=== PATIENT | female | born 1945 | race Caucasian/White ===

== ENCOUNTER 2017-07-18 09:30 | Inpatient (IN) | payer MEDICARE, MEDICAID ==
[2017-07-18 09:55] LABS: #Lymphocytes 0.5 thou/uL (1.20-3.40); #Monocytes 0.5 thou/uL (0.11-0.59); #Neutrophils 9.9 thou/uL (1.40-6.50); %Eosinophils 0.1 % (0.0-10.0); %Lymphocytes 4.5 % (21.0-51.0); %Monocytes 4.9 % (0.0-10.0); Hematocrit 33.7 % (36.0-47.0); Mean Platelet Volume 9.8 fL (7.4-10.4); Red Blood Cell (RBC) Count 3.49 mill/uL (4.20-5.40); White Blood Cell (WBC) Count 10.9 thou/uL (4.8-10.8)
--- NOTE | 2017-07-18 10:10 | RAD ---
AP VIEW OF CHEST: Date: 07/18/17 INDICATION: Shortness of breath and vomiting. FINDINGS: There are patchy air space opacities within the right mid lung and right lower lobe which can be seen with pneumonia or aspiration. There are small bilateral pleural effusions. There is cardiomegaly and mild pulmonary vascular congestion. No pneumothorax is evident. Post CABG changes are similar. IMPRESSION: 1. Patchy opacities within the lung bases may reflect pneumonia or aspiration. Recommend correlation and follow-up. 2. Cardiomegaly, pulmonary vascular congestion, and small bilateral pleural effusions likely reflect component of CHF. POS: DELIA
[2017-07-18 10:15] LABS: ALT (SGPT) 13 U/L (8-55); AST (SGOT) 46 U/L (5-34); Alkaline Phosphatase 56 U/L (40-150); Anion Gap 13 mmol/L (10-20); BUN (Urea Nitrogen) 24 mg/dL (9.8-20.1); CK (CPK) 260 U/L (29-168); Calc. Creatinine Clearance 0 mL/min (70-130); Calcium 9.6 mg/dL (7.8-10.44); Carbon Dioxide 23 mmol/L (23-31); Chloride 100 mmol/L (98-107); Estimated GFR-MDRD 42; Globulin 3.4 g/dL (2.4-3.5); Protein, Total 7.7 g/dL (6.0-8.3)
[2017-07-18 10:22] LABS: Critical Call Chem Troponin I 0; Troponin I 4.877 ng/mL (< 0.028)
[2017-07-18] MEDS ORDERED: Heparin 5,000 UNITS/ML VIAL ONE (11:01)
[2017-07-18 11:22] LABS: PTT 29.9 SEC (22.9-36.1); Prothrombin Time 14.6 SEC (12.0-14.7)
[2017-07-18] MEDS ORDERED: Enoxaparin Sodium 80 MG/0.8 ML SYRINGE ONE (12:24)
[2017-07-18 12:56] LABS: Troponin I 5.877 ng/mL (< 0.028)
--- NOTE | 2017-07-18 13:27 | HP ---
PRIMARY CARE PHYSICIAN: Jacki Moreno, Family Nurse Practitioner. REASON FOR ADMISSION: New onset congestive heart failure, non-ST elevation myocardial infarction, right lower lobe community-acquired pneumonia, hypoxic respiratory failure. HISTORY OF PRESENT ILLNESS: A 72-year-old female who has a history of coronary artery disease, 3-vessel, required CABG in the past as well as history of hypertension, diabetes type 2, dyslipidemia, who was brought to the emergency room because this morning, she was having increasing shortness of breath. Patient also had one episode of vomiting and patient was having cough productive of yellowish white sputum. She was having chills and fever at home. She denies any flu vaccination or pneumonia vaccination. These symptoms started early this morning, but she is having cough and shortness of breath for almost a week which is gradually getting worse. She is also reporting orthopnea. She does report lower extremity edema. She denies any hemoptysis. She denies any dizziness, palpitation or syncope. She denies any recent travel or sick exposure. Patient was feeling chest tightness, which she describes about 2/10 in intensity. She attributes to that, because she is feeling congestion in her chest. This patient is very hard of hearing and so the history is very difficult to obtain from her, but patient has bedside her granddaughter who provided most of the history. In the emergency room when she presented, at that time she was saturating 83% on room air. She was relatively having low blood pressure. Patient was evaluated by Cardiology and they recommended admission to seek IMCU. Her chest x-ray showed right lower lobe infiltration and pulmonary vascular congestion. Her EKG when we compared from old another hospital, there was no significant change. She does have LVH with repolarization changes. Looking at her old records, patient has cardiac catheterization history in 2002. At that time, patient had small vessels and small target and subsequently patient had a CABG done. The patient is followed by Dr. Oliva. PAST MEDICAL HISTORY: Coronary artery disease, 3-vessel, required CABG; hypertension; diabetes type 2; sensorineural deafness; dyslipidemia; degenerative joint disease; bilateral carotid artery stenosis; COPD; history of left ovarian cyst. PAST SURGICAL HISTORY: CABG x3, cardiac catheterization with stent, tubal ligation, carotid endarterectomy. PAST PSYCHIATRIC HISTORY: Reviewed and negative. ALLERGIES: NKDA. SOCIAL HISTORY: Patient is and lives at home with her . No history of tobacco, alcohol or illicit drug abuse. FAMILY HISTORY: No strong family history of premature coronary artery disease, stroke or cancer. REVIEW OF SYSTEMS: The following complete review of systems was negative, unless otherwise mentioned in the HPI or below: Constitutional: Weight loss or gain, ability to conduct usual activities. Skin: Rash, itching. Eyes: Double vision, pain. ENT/Mouth: Nose bleeding, neck stiffness, pain, tenderness. Cardiovascular: Palpitations, dyspnea on exertion, orthopnea. Respiratory: Shortness of breath, wheezing, cough, hemoptysis, fever or night sweats. Gastrointestinal: Poor appetite, abdominal pain, heartburn, nausea, vomiting, constipation, or diarrhea. Genitourinary: Urgency, frequency, dysuria, nocturia. Musculoskeletal: Pain, swelling. Neurologic/Psychiatric: Anxiety, depression. Allergy/Immunologic: Skin rash, bleeding tendency. Please see my HPI for pertinent positives and negatives. All other review of systems reviewed and negative except as mentioned in the HPI. EMERGENCY ROOM COURSE: Patient is given Lovenox 1 mg per kg, heparin 5000 units , aspirin 324 mg. CURRENT HOME MEDICATION: Metformin ER 500 mg po daily, lisinopril 40 mg po bid, atenolol 25 mg po daily, aspirin 81 mg po daily, plavix 75 mg po daily, protonix 40 mg po daily. Amlodipine 5 mg po bid, crestor 10 mg po daily PHYSICAL EXAMINATION: VITAL SIGNS: On arrival, blood pressure 114/39, pulse 67, respiratory rate 20, temperature 97.4, saturation 83% on room air, weight 68 kilograms. GENERAL: Patient is currently alert, awake, arousable, hard of hearing, no obvious acute distress. HEAD: Normocephalic, atraumatic. EYES: Pupils round, reactive to light. Extraocular muscles intact. ENT: Oropharynx within normal limits. Moist mucous membranes. No oral lesions. No pharyngeal erythema, no exudates. NECK: Supple, no JVD, no thyromegaly, no carotid bruit, no meningeal signs of irritation. LUNGS: Bibasilar rales noted. No wheezing, no rhonchi. No accessory muscles of respiration in use. CARDIAC: S1, S2 regular. No murmur, no gallop, no rub. ABDOMEN: Soft, bowel sounds present, nontender, nondistended. No organomegaly , no mass, no suprapubic tenderness. BACK: Unremarkable, no CVA tenderness. EXTREMITIES: Upper extremity: Passive movement of all joints are normal. Lower extremity: Trace bilateral lower extremity edema noted. Good peripheral pulsation. SKIN: No skin rash. HEMATOLOGIC: No lymphadenopathy. PSYCHIATRIC: Normal affect. SIGNIFICANT LABORATORY DATA AND IMAGIN. EKG based on my review, LVH with repolarization changes, left atrial enlargement. When compared to old EKG, there was no significant change in EKG. Chest x-ray showing patchy opacity at the right lung base consistent with pneumonia, cardiomegaly and pulmonary vascular congestion. 2. CBC: WBC 10.9, hemoglobin 11.6, platelets 172. INR 1.1. BMP: Sodium 132 , potassium 4.3, chloride 100, carbon dioxide 23, anion gap 13, BUN 24, creatinine 1.24, glucose 147, calcium 9.6. 3. LFT: AST 46, ALT 13, alkaline phosphatase 56, albumin 4.3. CK 260, CK-MB 14.1, troponin 4.87. BNP 3049. ASSESSMENT AND PLAN: 1. Acute non-ST elevation myocardial infarction. Patient has significantly abnormal troponin and patient also has LVH with low polarization changes. At this point, patient already has underlying history of coronary artery disease required coronary artery bypass graft in the past. Cardiology already consulted. This patient has significant peripheral vascular problem and at this point, we will obtain echocardiography. We will treat medically with aspirin 81 mg p.o. daily, Plavix 75 mg p.o. daily, Lovenox 1 mg per kg subcutaneous twice daily and nitropatch q.8 hourly. We will obtain echocardiography and we will also continue with Coreg 3.125 mg twice daily and statin therapy with Zocor 40 mg p.o. at bedtime. 2. New onset congestive heart failure, suspecting systolic heart failure. At this point, we are changing her atenolol to Coreg 3.125 mg p.o. twice daily. We will start Lasix 20 mg IV b.i.d. We will also consider adding lisinopril 2.5 mg p.o. b.i.d. The patient is taking high dose of lisinopril at home, but because of relatively low blood pressure, we will reduce to lisinopril 2.5 mg p.o. b.i.d. and we will titrate medication while in hospital. 3. Acute hypoxic respiratory failure due to combined etiology from pneumonia as well as congestive heart failure. We will continue with oxygen to keep saturation above 92%. We will continue with the diuretic therapy and we will treat underlying pneumonia as well and we will monitor her oxygen saturation on daily basis to assess need for home oxygen therapy. 4. Community-acquired pneumonia. Patient does have a right lower lobe infiltration. The patient will be given Rocephin 1 gram q.24 hours, Levaquin 500 mg IV daily, DuoNeb therapy q.6 hourly and p.r.n. basis, Mucinex 600 mg twice daily. 5. Hypertension with hypertensive heart disease. Patient has LVH. Patient's blood pressure is currently on lower side, but we will continue the Coreg, lisinopril, and we will titrate blood pressure medication as needed. The patient is taking amlodipine at home, but we will hold on at this point given her low blood pressure. 6. Coronary artery disease, as mentioned in problem #1. We will treat medically for [id number] myocardial infarction. 7. Chronic kidney disease stage 3. We will monitor renal function and avoid nephrotoxic agents. 8. Diabetes type 2. We will continue with insulin as per sliding scale per protocol. Diabetic diet will be given and we will continue metformin ER 500 mg p.o. daily. 9. Sensorineural deafness, only supportive treatment. 10. History of chronic obstructive pulmonary disease. We will continue DuoNeb therapy. 11. Normocytic anemia. We will continue with ferrous sulfate 325 mg p.o. daily. 12. Gastroesophageal reflux disease. We will continue Protonix 40 mg p.o. daily and Pepcid 20 mg p.o. b.i.d. 13. Deep venous thrombosis prophylaxis. Patient is already on full dose of Lovenox therapy. 14. Gastrointestinal prophylaxis, Protonix and Pepcid. CODE STATUS: The patient is full code. Patient's is surrogate decision maker. Disposition and plan based on clinical course. We are expecting patient's stay in hospital more than 2 midnights. Plan of care discussed with the patient and family member at bedside in the emergency room. [facility]
[2017-07-18] MEDS ORDERED: Furosemide 20 MG/2 ML VIAL ONE (13:34)
[2017-07-18] MEDS ORDERED: Sodium Chloride 0.65% Nasal 44 ML BOT EA NARE PRN (14:29)
[2017-07-18] MEDS ORDERED: Ondansetron ODT 4 MG TAB PO PRN (14:29)
[2017-07-18] MEDS ORDERED: Artificial Tears 18 DROP/0.9 ML EA EYE PRN (14:29)
[2017-07-18] MEDS ORDERED: Dextrose 5% in Water 1,000 ML IV PRN (14:29)
[2017-07-18] MEDS ORDERED: Dextrose 50% Abboject 50 ML SYRINGE SLOW IVP PRN (14:29)
[2017-07-18] MEDS ORDERED: Milk Of Magnesia 30 ML UDCUP PO PRN (14:29)
[2017-07-18] MEDS ORDERED: Senokot 8.6 MG TAB PO PRN (14:29)
[2017-07-18] MEDS ORDERED: Loperamide HCl 2 MG CAP PO PRN (14:29)
[2017-07-18] MEDS ORDERED: hydrALAZINE 20 MG/ML VIAL SLOW IVP PRN (14:29)
[2017-07-18] MEDS ORDERED: Chloraseptic Spray 180 ml Bottle PO PRN (14:29)
[2017-07-18] MEDS ORDERED: Loratadine 10 MG TAB PO PRN (14:29)
[2017-07-18] MEDS ORDERED: HumaLOG 300 UNITS/3 ML VIAL SC PRN ×2 (14:29)
[2017-07-18] MEDS ORDERED: Ondansetron HCl/PF 4 MG/2 ML Vial IVP PRN (14:29)
[2017-07-18] MEDS ORDERED: Eucerin (Mineral Oil/Petrolatum,White) 30 gm Jar TOP PRN (14:29)
[2017-07-18] MEDS ORDERED: Nitroglycerin 0.4 MG TAB (25 Tab Bottle) SL PRN (14:29)
[2017-07-18] MEDS ORDERED: cefTRIAXone\\ROCEPHIN 1 GM in Sodium Chloride 0.9% 100 ML IVPB SCH (14:29)
[2017-07-18] MEDS ORDERED: HYDROcodone/Acetaminophen 5/325 mg Tablet PO PRN (14:29)
[2017-07-18] MEDS ORDERED: Mag-Al 1200 mg/1200 mg/30 ML UDCUP PO PRN (14:29)
[2017-07-18 14:31] VITALS: BMI 24.0
[2017-07-18] MEDS ORDERED: Furosemide 20 MG/2 ML VIAL SLOW IVP SCH (14:45)
[2017-07-18] MEDS: Nitroglycerin 2% Ointment 1 INCH/1 GM Packet TOP SCH ×2 (16:17→22:17)
[2017-07-18] MEDS: cefTRIAXone\\ROCEPHIN 1 GM, Syringe 0.4 ML in Sterile Water 9.6 ML SLOW IVP SCH (16:18)
[2017-07-18 17:09] LABS: Bilirubin Negative (Negative); Blood, Urine Small (Negative); Glucose, Urine (Dipstick) Negative (Negative); Ketone, Urine Negative (Negative); Nitrite Negative (Negative); Protein, Urine (Dipstick) Negative (Neg-Trace); Urobilinogen 0.2 mg/dL (0.2-1.0)
[2017-07-18 17:15] LABS: Troponin I 6.109 ng/mL (< 0.028)
[2017-07-18 17:16] LABS: Bacteria/HPF None Seen HPF (None Seen); Hyaline Casts/LPF 0-3 HYALINE CAST LPF (0-3 Hyaline); Squamous Epithelial 0-3 HPF (0-3); WBC/HPF 0-3 HPF (0-3)
[2017-07-18] MEDS ORDERED: FLU VACC TS2017-18 (>65YR) 0.5 ML SYRINGE IM ONE (17:45)
[2017-07-18 20:01] LABS: Troponin I 6.532 ng/mL (< 0.028)
[2017-07-18] MEDS: Carvedilol 3.125 MG TAB PO SCH (22:16)
[2017-07-18] MEDS: Lisinopril 5 MG TAB PO SCH (22:16)
[2017-07-18] MEDS: guaiFENesin ER 600 MG TAB PO SCH (22:16)
[2017-07-18] MEDS: Atorvastatin Calcium 20 MG TAB PO SCH (22:16)
[2017-07-18] MEDS: Enoxaparin Sodium 60 MG/0.6 ML SYRINGE SC SCH (22:17)
--- NOTE | 2017-07-18 22:26 | CON ---
REASON FOR CONSULTATION: 07/18/2017 REASON FOR CONSULTATION: Congestive heart failure, shortness of breath, non-ST elevation myocardial infarction. HISTORY OF PRESENT ILLNESS: Ms. Jackson is a very pleasant 72-year-old woman, patient of Dr. Petey Burdick. She was brought to the hospital complaining of shortness of breath. The patient is unable to give much history, but apparently, early this morning, she became short of b reath. This is according to mostly the patient's granddaughter, but the patient agrees with this tobi cription. She also said she had a hard shaking chill. She worsened, came here to the emergency room for evaluation, continuing to be short of breath and srinivasan ving some chest pain with the breath, but otherwise no chest pain, no angina. The patient has abnormal chest x-ray as well, as will be outlined. The patient is not having chest pain now, but she is short of breath. She is also unable to urinate. She is trying to urinate, but cannot. PAST MEDICAL HISTORY: She is a very imprecise historian, but fortunately, there are some records glenys ilable. She initially thought her bypass was in 1998, but we found some old records in the chart ind icating she actually underwent cardiac catheterization by Dr. Oliva in 2002, and subsequently und erwent bypass surgery. Dr. Oliva's note indicates she had 3-vessel disease. Dr. Toussaint's not e indicates these vessels were small targets, and the surgery was done after myocardial infarction. She was also noted to have a left subclavian stenosis. She underwent surgery with free internal mammary arteries to LAD, saphenous vein graft to diagonal, s aphenous vein graft to obtuse marginal, saphenous vein graft to right coronary artery. The mammary w as placed on the obtuse marginal as a piggyback. I think in reading the note, that really what Dr. Estee rodriguez meant was that the internal mammary artery graft is on the piggyback down to the vein graft of the LAD. It was noted at the time of surgery that this patient should not be re-operated on due to plaque with diffuse disease with distal anastomotic lesions. Patient has been followed by Dr. Oliva since. She has been told she has severe peripheral vascul ar disease. MEDICATIONS: 1. Simvastatin 40 mg a day. 2. Aspirin 81 mg a day. 3. Isosorbide. 4. Metformin. 5. Lisinopril 40 mg twice a day. 6. Atenolol 25 mg a day. 7. Amlodipine 5 mg twice a day. 8. Pantoprazole 40 mg a day. 9. Plavix. REVIEW OF SYSTEMS: Not very reliable. She is really unable to give much history. It is positive fo r the followin. Weakness and fatigue. 2. Positive for hard shaking chills. 3. Positive for shortness of breath. Otherwise negative or unreliable as the patient cannot give much history. PHYSICAL EXAMINATION: GENERAL: This is a frail-appearing elderly woman who looks much older than her chronologic age of 72 . She is trying to urinate, but unable to do so. VITAL SIGNS: Blood pressure 120 systolic. Pulse is in the 70s. EYES: Sclerae nonicteric. MOUTH: Mucous membranes moist. NECK: Supple, no lymphadenopathy. LUNGS: There are bibasilar rales, more on the right than the left. CARDIAC: Normal S1, normal S2. There is no murmur, rub, or gallop. ABDOMEN: Soft, nontender, no hepatosplenomegaly. EXTREMITIES: Warm, dry, no clubbing, cyanosis, or edema. HEMATOLOGIC: No unusual bruising. GENITOURINARY: Not examined. SKIN: Warm and dry. PULSES: I do not feel pedal pulses on either side. No popliteal pulses. The femoral pulses are not definitely palpable; it is possibly trace on the left. I cannot definitely feel any pulses in the f emoral area. The patient has severe peripheral vascular disease. X-RAY FINDINGS: EKG, normal sinus rhythm. There is some ST elevation in V1 and V2 and V3 with diffu se T-wave inversion in the anterior leads. I did receive a copy of the EKG from Dr. Oliva's offi ce. She did have some ST elevation in the same leads with the same T-wave inversions on the previous leads. The quality of the EKG is suboptimal , but there does not appear to be any definite dillard ge in the EKG. PERTINENT LABORATORY DATA: BNP is 3049 indicating she has chronic congestive heart failure. Her hem oglobin is 11.6. Her potassium is 4.3 and sodium 132, which is a little low. Bilirubin is 2. Tropo rikki 4.877. Chest x-ray shows cardiomegaly, pulmonary vascular congestion, patchy infiltrates, probably compatibl e with pneumonia and also pleural effusions. ASSESSMENT: 1. Congestive heart failure. 2. What appears to be non-ST elevation myocardial infarction. 3. Diffuse atherosclerotic disease. 4. Severe peripheral vascular disease with no femoral pulses or pedal pulses on either side. 5. Unable to give a very clear history, history of hypercholesterolemia. 6. History of hypertension. 7. Hyponatremia. PLAN: 1. We will give Lovenox. 2. Treat heart failure with diuretics as well as BENJI inhibitors and also change to Coreg. 3. Echocardiogram. 4. Antibiotics to be given. Further care dictated in hospital course. Prognosis guarded to poor.
[2017-07-18] MEDS: Famotidine 20 MG TAB PO SCH (22:37)
--- NOTE | 2017-07-19 01:24 | CON ---
DATE OF SERVICE: 07/18/2017 SERVICE: Pulmonary Medicine. REASON FOR CONSULTATION: [facility] [place] HISTORY OF PRESENT ILLNESS: The patient is a 72-year-old white female with past medical history significant for heart failure and heart disease. She had a 1-week history of increasing shortness of breath and a little bit of cough. Originally, this was nonproductive but started bringing up some yellow sputum. One day ago, this accelerated and she started bringing up heavier sputum. She had some low-grade fevers and came into the emergency department. Chest x-ray demonstrated a right lower lobe infiltrate. She also had findings consistent with volume overload. She was given some Lasix and initiated on some antibiotics. The sputum production is actually starting to slow down a little bit and her breathing is much improved. On presentation, she was hypoxemic. She does not use any home oxygen. PAST MEDICAL HISTORY: 1. Coronary artery disease. 2. Chronic systolic and diastolic heart failure. 3. Type 2 diabetes mellitus. 4. Dyslipidemia. 5. Hypertension. 6. Osteoarthritis. 7. Chronic obstructive pulmonary disease. 8. History of left ovarian cyst. 9. Sensorineural deafness. PAST SURGICAL HISTORY: 1. Coronary artery bypass graft x3 vessels. 2. History of percutaneous coronary intervention. 3. Tubal ligation. 4. Carotid endarterectomy. ALLERGIES: PENICILLIN. MEDICATIONS: List of inpatient medications was reviewed. Multiple updates were made. SOCIAL HISTORY: She has no history of alcohol, tobacco, or illicit drug use. She denies any exposure to chemicals, dust, asbestos, or tuberculosis. FAMILY HISTORY: Noncontributory. REVIEW OF SYSTEMS: General, head, ears, eyes, nose, throat, cardiovascular, respiratory, GI, , musculoskeletal, neurologic, and skin is negative except as mentioned in the HPI. PHYSICAL EXAMINATION: VITAL SIGNS: Afebrile, pulse 74, blood pressure 119/40, respirations 18, saturation 95% on 2 liters nasal cannula. HEENT: Normocephalic, atraumatic. Sclerae are white, conjunctivae pink. Oral and nasal mucosa is moist without lesions. LUNGS: There is decent air entry with a prolonged expiratory phase. I hear both crackles and rhonchi. The rhonchi are more predominant on the right. The crackles are bibasilar. HEART: Normal rate, regular. ABDOMEN: Soft, nontender, nondistended, bowel sounds positive. MUSCULOSKELETAL: No cyanosis or clubbing. There is trace to 1+ pitting in the bilateral lower extremities. GENITOURINARY: No Cyr. NEUROLOGIC: Grossly nonfocal. LABORATORY DATA: WBC 10.9, hemoglobin 11.6, platelets 172,000. INR 1.1. Creatinine 1.24. Basic metabolic profile is otherwise unremarkable. Glucose 147, total bilirubin 2.0. Troponin is uptrending to 6.109. BNP 3000, but liver function studies are otherwise unremarkable. Urinalysis is unremarkable. IMAGING: Chest x-ray demonstrates findings consistent with volume overload with cephalization and pulmonary vascular engorgement, but there is also a very dense right lower lobe infiltrate. There may be some atelectasis or scattered infiltrate in the left base as well. ASSESSMENT: 1. Acute hypoxic respiratory failure. 2. Community-acquired pneumonia. 3. Severe sepsis. 4. Non-ST elevation myocardial infarction. 5. Acute on chronic systolic heart failure. 6. Coronary artery disease. 7. Type 2 diabetes mellitus. 8. Deafness. PLAN: We will continue our antibiotics directed at community-acquired coverage. She will be diuresed to euvolemia. I will add some Mucinex to see if we can help with some of the expectoration of her sputum. She is currently on full-dose anticoagulation. Other supportive care will be continued. She will remain in the IMCU until at least tomorrow morning. Pulmonary will continue to follow. She will need a full 7-day course of antibiotics. Following dismissal from the hospital, she will require a repeat chest x-ray in roughly 4-6 weeks to verify if the infiltrate resolves. NINA
[2017-07-19] MEDS: Furosemide 20 MG/2 ML VIAL SLOW IVP SCH ×2 (05:39→15:03)
[2017-07-19 05:59] LABS: #Lymphocytes 0.5 thou/uL (1.20-3.40); #Monocytes 0.3 thou/uL (0.11-0.59); #Neutrophils 2.9 thou/uL (1.40-6.50); %Basophils 0.5 % (0.0-1.0); %Eosinophils 0.5 % (0.0-10.0); %Lymphocytes 12.8 % (21.0-51.0); %Monocytes 7.7 % (0.0-10.0); Hematocrit 28.3 % (36.0-47.0); Red Blood Cell (RBC) Count 2.95 mill/uL (4.20-5.40); White Blood Cell (WBC) Count 3.7 thou/uL (4.8-10.8)
[2017-07-19 06:03] LABS: ALT (SGPT) 10 U/L (8-55); AST (SGOT) 33 U/L (5-34); Alkaline Phosphatase 42 U/L (40-150); Anion Gap 11 mmol/L (10-20); BUN (Urea Nitrogen) 21 mg/dL (9.8-20.1); Bilirubin, Total 1.5 mg/dL (0.2-1.2); Calc. Creatinine Clearance 45 mL/min (70-130); Calcium 8.9 mg/dL (7.8-10.44); Carbon Dioxide 28 mmol/L (23-31); Chloride 95 mmol/L (98-107); Cholesterol 101 mg/dl (< 200 Desired); Estimated GFR-MDRD 53; Globulin 2.7 g/dL (2.4-3.5); LDL Cholesterol, Calculated 47 mg/dL; Protein, Total 6.1 g/dL (6.0-8.3)
[2017-07-19] MEDS: Acetaminophen 325 MG TAB PO PRN (07:24)
[2017-07-19] MEDS: Ferrous Sulfate 325 MG TAB PO SCH (07:24)
[2017-07-19] MEDS: Saccharomyces boulardii 250 MG CAP PO SCH (07:24)
[2017-07-19] MEDS: guaiFENesin ER 600 MG TAB PO SCH ×2 (07:25→20:22)
[2017-07-19] MEDS: Carvedilol 3.125 MG TAB PO SCH ×2 (07:25→20:22)
[2017-07-19] MEDS: Lisinopril 5 MG TAB PO SCH ×2 (07:25→20:22)
[2017-07-19] MEDS: Clopidogrel Bisulfate 75 MG TAB PO SCH (07:25)
[2017-07-19] MEDS: Enoxaparin Sodium 60 MG/0.6 ML SYRINGE SC SCH (07:26)
[2017-07-19] MEDS: Nitroglycerin 2% Ointment 1 INCH/1 GM Packet TOP SCH (07:34)
[2017-07-19] MEDS ORDERED: metFORMIN XR 500 MG TAB PO SCH (08:00)
--- NOTE | 2017-07-19 09:34 | PDOC.PN ---
- Subjective Encounter Start Date: 07/19/17 Encounter Start Time: 08:40 -: old records requested/rev Patient seen and examined. No new complaints. No overnight events - Objective Resuscitation Status: Resuscitation Status FULL:Full Resuscitation MAR Reviewed: Yes Vital Signs & Weight: Vital Signs (12 hours) Temp Pulse Resp BP BP Pulse Ox 07/19/17 07:25 64 143/80 H 07/19/17 07:10 99.0 F 73 24 H 143/80 H 99 07/19/17 06:42 70 14 07/19/17 04:00 98.3 F 63 20 112/43 L 99 07/19/17 00:19 68 14 99 07/19/17 00:00 98.9 F 68 20 123/44 L 99 07/18/17 22:16 73 137/56 L Weight Weight 128 lb 12.8 oz I&O: 07/18/17 07/19/17 07/20/17 06:59 06:59 06:59 Intake Total 750 Output Total 1025 Balance -275 Result Diagrams: 07/19/17 04:57 07/19/17 04:57 Additional Labs: Accuchecks 07/19/17 07/18/17 07/18/17 05:47 20:47 16:54 POC Glucose 124 H 188 H 132 H EKG Reviewed by me: Yes (nsr) Phys Exam - Physical Examination Constitutional: NAD HEENT: PERRLA, moist MMs, sclera anicteric Neck: no JVD, supple Respiratory: no wheezing, no rales, no rhonchi Cardiovascular: RRR, no significant murmur, no rub Gastrointestinal: soft, non-tender, no distention, positive bowel sounds Musculoskeletal: no edema, pulses present Neurological: non-focal, normal sensation Psychiatric: normal affect, A&O x 3 Skin: no rash, normal turgor Dx/Plan (1) Acute on chronic combined systolic and diastolic congestive heart failure Code(s): I50.43 - ACUTE ON CHRONIC COMBINED SYSTOLIC AND DIASTOLIC HRT FAIL Status: Acute (2) Acute respiratory failure with hypoxia Code(s): J96.01 - ACUTE RESPIRATORY FAILURE WITH HYPOXIA Status: Acute (3) Community acquired bacterial pneumonia Code(s): J15.9 - UNSPECIFIED BACTERIAL PNEUMONIA Status: Acute (4) Hyponatremia Code(s): E87.1 - HYPO-OSMOLALITY AND HYPONATREMIA Status: Acute (5) NSTEMI (non-ST elevated myocardial infarction) Code(s): I21.4 - NON-ST ELEVATION (NSTEMI) MYOCARDIAL INFARCTION Status: Acute (6) Thrombocytopenia Code(s): D69.6 - THROMBOCYTOPENIA, UNSPECIFIED Status: Acute (7) Anemia, normocytic normochromic Code(s): D64.9 - ANEMIA, UNSPECIFIED Status: Chronic (8) CAD (coronary artery disease) Code(s): I25.10 - ATHSCL HEART DISEASE OF [place] CORONARY ARTERY W/O ANG PCTRS Status: Chronic (9) COPD (chronic obstructive pulmonary disease) Status: Chronic (10) DJD (degenerative joint disease) Code(s): M19.90 - UNSPECIFIED OSTEOARTHRITIS, UNSPECIFIED SITE Status: Chronic (11) Deafness Code(s): H91.90 - UNSPECIFIED HEARING LOSS, UNSPECIFIED EAR Status: Chronic (12) Diabetes type 2, controlled Code(s): E11.9 - TYPE 2 DIABETES MELLITUS WITHOUT COMPLICATIONS Status: Chronic (13) Dyslipidemia Code(s): E78.5 - HYPERLIPIDEMIA, UNSPECIFIED Status: Chronic - Plan cont current plan of care, continue antibiotics, respiratory therapy * monitor platelet, if further drops, will dc lovenox * medication reviewed as below * symptomatic treatment * follow culture * DC nitro patch and start imdur 30 mg po daily * transfer to tele * cardiology and pulmonary following * echo pending. * continue current optimum medical therapy * repeat labs tomorrow Review of Systems - Review of Systems ENT: negative: Ear Pain, Ear Discharge, Nose Pain, Nose Discharge, Nose Congestion, Mouth Pain, Mouth Swelling, Throat Pain, Throat Swelling, Other Respiratory: negative: Cough, Dry, Shortness of Breath, Hemoptysis, SOB with Excertion, Pleuritic Pain, Sputum, Wheezing Cardiovascular: negative: Chest Pain, Palpitations, Orthopnea, Paroxysmal Noc. Dyspnea, Edema, Light Headedness, Other Gastrointestinal: negative: Nausea, Vomiting, Abdominal Pain, Diarrhea, Constipation, Melena, Hematochezia, Other Genitourinary: negative: Dysuria, Frequency, Incontinence, Hematuria, Retention , Other Musculoskeletal: negative: Neck Pain, Shoulder Pain, Arm Pain, Back Pain, Hand Pain, Leg Pain, Foot Pain, Other Skin: negative: Rash, Lesions, [place], Bruising, Other Other: limited due to deafness - Medications/Allergies Allergies/Adverse Reactions: Allergies Allergy/AdvReac Type Severity Reaction Status Date / Time No Known Drug Allergies Allergy Verified 07/18/17 15:57 Medications: Current Medications Acetaminophen (Tylenol) 650 mg PO Q4H PRN PRN Reason: Headache/Fever or Pain Last Admin: 07/19/17 07:24 Dose: 650 mg Hydrocodone Bitart/Acetaminophen ([place] 5/325) 1 tab PO Q4H PRN PRN Reason: Moderate Pain (4-6) Al Hydroxide/Mg Hydroxide (Maalox) 30 ml PO Q6H PRN PRN Reason: Heartburn or Indigestion Albuterol/Ipratropium (Duoneb) 3 ml NEB [id number] [facility] Last Admin: 07/19/17 06:42 Dose: 3 ml Artificial Tears (Tears Naturale) 0 drop EA EYE PRN PRN PRN Reason: Dry Eyes Aspirin (Aspirin Chewable) 81 mg PO DAILY [facility] Last Admin: 07/19/17 07:25 Dose: 81 mg Atorvastatin Calcium (Lipitor) 20 mg PO HS [facility] Last Admin: 07/18/17 22:16 Dose: 20 mg Carvedilol (Coreg) 3.125 mg PO BID [facility] Last Admin: 07/19/17 07:25 Dose: 3.125 mg Clopidogrel Bisulfate (Plavix) 75 mg PO QAM [facility] Last Admin: 07/19/17 07:25 Dose: 75 mg Dextrose/Water (Dextrose 50%) 25 gm SLOW IVP PRN PRN PRN Reason: Hypoglycemia Enoxaparin Sodium (Lovenox) 30 mg SC 0900,2100 [facility] Famotidine (Pepcid) 20 mg PO Q24HR [facility] Last Admin: 07/18/17 22:37 Dose: 20 mg Ferrous Sulfate (Feosol) 325 mg PO QAM-[facility] Last Admin: 07/19/17 07:24 Dose: 325 mg Furosemide (Lasix) 20 mg SLOW IVP 0600,1400 [facility] Last Admin: 07/19/17 05:39 Dose: 20 mg Glucagon (Glucagon) 1 mg IM PRN PRN PRN Reason: Hypoglycemia Guaifenesin (Robitussin Sf) 200 mg PO Q4H PRN PRN Reason: Cough Guaifenesin (Mucinex) 600 mg PO Q12HR [facility] Last Admin: 07/19/17 07:25 Dose: 600 mg Hydralazine HCl (Apresoline) 10 mg SLOW IVP Q4H PRN PRN Reason: Systolic BP > 180 Dextrose/Water (D5w) 1,000 mls @ 0 mls/hr IV .Q0M PRN; As Directed PRN Reason: Hypoglycemia Levofloxacin 500 mg/ Device 100 mls @ 100 mls/hr IVPB 1600 [facility] Last Admin: 07/18/17 16:27 Dose: 100 mls Ceftriaxone Sodium 1 gm/ (Syringe 0.4 ml/ Sterile Water) 10 mls @ 120 mls/hr SLOW IVP 1600 [facility] Last Admin: 07/18/17 16:18 Dose: 10 mls Insulin Human Lispro (Humalog) 0 units SC .MODERATE SLIDING SC PRN PRN Reason: Moderate Correctional Scale Insulin Human Lispro (Humalog) 0 units SC .BEDTIME SLIDING SC PRN PRN Reason: Bedtime Correctional Scale Isosorbide Mononitrate (Imdur Er) 30 mg PO DAILY [facility] Lisinopril (Zestril) 2.5 mg PO BID [facility] Last Admin: 07/19/17 07:25 Dose: 2.5 mg Loperamide HCl (Imodium) 2 mg PO PRN PRN PRN Reason: Diarrhea/Loose Stools Loratadine (Claritin) 10 mg PO DAILYPRN PRN PRN Reason: Sinus Symptoms Magnesium Hydroxide (Milk Of Magnesium) 30 ml PO DAILYPRN PRN PRN Reason: Constipation Mineral Oil/White Petrolatum (Eucerin Cream) 0 gm TOP BIDPRN PRN PRN Reason: Dry Skin Nitroglycerin (Nitrostat) 0.4 mg SL Q5MIN PRN PRN Reason: Chest Pain Ondansetron HCl (Zofran Odt) 4 mg PO Q6H PRN PRN Reason: Nausea/Vomiting Ondansetron HCl (Zofran) 4 mg IVP Q6H PRN PRN Reason: Nausea/Vomiting Phenol (Chloraseptic [place] 180 Ml Bot) 0 ml PO PRN PRN PRN Reason: Sore Throat Saccharomyces Boulardii (Florastor) 250 mg PO DAILY [facility] Last Admin: 07/19/17 07:24 Dose: 250 mg Senna (Senokot) 2 tab PO HSPRN PRN PRN Reason: Constipation Sodium Chloride ([place] Nasal [place] 0.65%) 0 ml EA NARE QIDPRN PRN PRN Reason: Nasal Congestion
--- NOTE | 2017-07-19 09:44 | PRG ---
DATE OF SERVICE: 07/19/2017 Ms. Jackson is doing better today. She is much more awake and alert, feels better. She is not having chest pain or pressure. Her oxygen saturation is normal on nasal cannula now. PHYSICAL EXAMINATION: VITAL SIGNS: Her blood pressure 143/80, pulse 64 regular. LUNGS: Some basilar rales at the right base. No wheezing. CARDIAC: Normal S1, normal S2. PERTINENT LABORATORY: Troponin of 6.532. Potassium is 3.7, creatinine 1.02. ASSESSMENT: 1. Coronary artery disease. 2. Hypercholesterolemia, controlled. 3. Pneumonia. 4. Status post non-ST elevation infarction. 5. Peripheral vascular disease. 6. Anemia. Hemoglobin is low at 9.7. PLAN: 1. Reduce enoxaparin. 2. Check CBC tomorrow. 3. Continue aspirin and Plavix. 4. Continue low dose beta-moraima, can only use low dose in view of the heart rate. 5. Echocardiogram to be done. 6. Intravenous antibiotics.
[2017-07-19] MEDS: cefTRIAXone\\ROCEPHIN 1 GM, Syringe 0.4 ML in Sterile Water 9.6 ML SLOW IVP SCH (15:02)
[2017-07-19] MEDS: Atorvastatin Calcium 20 MG TAB PO SCH (20:22)
[2017-07-19] MEDS: Famotidine 20 MG TAB PO SCH (20:22)
[2017-07-19] MEDS: Enoxaparin Sodium 30 MG/0.3 ML SYRINGE SC SCH (20:22)
[2017-07-19] MEDS: Diabetic Tussin 200 MG/10 ML UDCUP PO PRN ×2 (20:23→23:39)
--- NOTE | 2017-07-19 21:43 | PRG ---
DATE OF SERVICE: 07/19/2017 SERVICE: Pulmonary Medicine. INTERVAL HISTORY: The patient is doing great from a respiratory standpoint. She denies any current fevers, chills, nausea, vomiting, or chest discomfort. Otherwise, there has been no interval change to her condition. She is walking around with physical therapy today and has no specific complaints. Her oxygen has been essentially weaned off. PHYSICAL EXAMINATION: VITAL SIGNS: Afebrile, pulse 76, blood pressure 145/59, respirations 16, saturation 93% on 2 liters nasal cannula. GENERAL: Patient is awake and alert, in no apparent distress. LUNGS: Excellent air entry with no prolonged expiratory phase, wheezing, or rhonchi. Dependent crac kles are present. HEART: Normal rate, regular. ABDOMEN: Soft, nontender, nondistended. Bowel sounds positive. MUSCULOSKELETAL: No cyanosis or clubbing. No pitting in the bilateral lower extremities. NEUROLOGIC: Grossly nonfocal. LABORATORY DATA: WBC 3.7, hemoglobin 9.7, platelets 89,000. INR 1.1. BUN 21. Basic metabolic prof ile is otherwise unremarkable. Uric acid 7.0. Total bilirubin 1.5 and gently downtrending. Liver f unction studies are otherwise unremarkable. Troponin is barely trending upward to 6.5. ASSESSMENT: 1. Acute hypoxic respiratory failure, improving. 2. Community-acquired pneumonia. 3. Non-ST elevation myocardial infarction. 4. Acute on chronic systolic heart failure. 5. Coronary artery disease. 6. Type 2 diabetes mellitus. 7. Deafness. PLAN: We will continue supportive care including antibiotics and diuretics. From a purely respirato ry perspective, she is stable for transition to the telemetry unit. Pulmonary will continue to follo w for the time being. She will require repeat chest x-ray in 4-6 weeks after discharge from the hosp ital to verify the infiltrate results. Repeat laboratories will be obtained tomorrow morning.
[2017-07-20 05:00] LABS: #Lymphocytes 0.7 thou/uL (1.20-3.40); #Monocytes 0.4 thou/uL (0.11-0.59); #Neutrophils 2.7 thou/uL (1.40-6.50); %Eosinophils 0.8 % (0.0-10.0); %Lymphocytes 17.9 % (21.0-51.0); %Monocytes 9.2 % (0.0-10.0); Mean Platelet Volume 9.9 fL (7.4-10.4); Red Blood Cell (RBC) Count 2.82 mill/uL (4.20-5.40); White Blood Cell (WBC) Count 3.8 thou/uL (4.8-10.8)
[2017-07-20 05:07] LABS: Anion Gap 12 mmol/L (10-20); BUN (Urea Nitrogen) 16 mg/dL (9.8-20.1); Calc. Creatinine Clearance 44 mL/min (70-130); Calcium 8.8 mg/dL (7.8-10.44); Carbon Dioxide 29 mmol/L (23-31); Chloride 94 mmol/L (98-107); Estimated GFR-MDRD 52; Magnesium 1.5 mg/dL (1.6-2.6)
[2017-07-20 05:14] LABS: Critical Call Chem Troponin I RESULT DECREASING; Troponin I 6.183 ng/mL (< 0.028)
[2017-07-20] MEDS: Furosemide 20 MG/2 ML VIAL SLOW IVP SCH ×2 (06:35→15:03)
[2017-07-20] MEDS: Diabetic Tussin 200 MG/10 ML UDCUP PO PRN ×3 (06:35→15:03)
[2017-07-20] MEDS ORDERED: Magnesium Sulfate 4 GM in Sodium Chloride 0.9% 250 ML 250 ML IVPB SCH (08:30)
[2017-07-20] MEDS ORDERED: Potassium Chloride 20 MEQ TAB PO SCH (08:30)
[2017-07-20] MEDS: Lisinopril 5 MG TAB PO SCH (09:20)
[2017-07-20] MEDS: Ferrous Sulfate 325 MG TAB PO SCH (09:42)
[2017-07-20] MEDS: Saccharomyces boulardii 250 MG CAP PO SCH (09:42)
[2017-07-20] MEDS: Clopidogrel Bisulfate 75 MG TAB PO SCH (09:42)
[2017-07-20] MEDS: Carvedilol 3.125 MG TAB PO SCH ×2 (09:42→21:41)
[2017-07-20] MEDS: guaiFENesin ER 600 MG TAB PO SCH ×2 (09:42→21:48)
[2017-07-20] MEDS: Enoxaparin Sodium 30 MG/0.3 ML SYRINGE SC SCH ×2 (09:43→21:42)
--- NOTE | 2017-07-20 10:05 | PDOC.PN ---
- Subjective Encounter Start Date: 07/20/17 Encounter Start Time: 08:45 pt has cough, dyspnea, no fever, no chest pain - Objective Resuscitation Status: Resuscitation Status FULL:Full Resuscitation MAR Reviewed: Yes Vital Signs & Weight: Vital Signs (12 hours) Temp Pulse Resp BP Pulse Ox 07/20/17 09:41 82 103/49 L 07/20/17 08:23 95 07/20/17 08:00 97.9 F 130 H 20 91/55 L 97 07/20/17 07:35 95 20 07/20/17 04:00 99.1 F 70 20 119/56 L 95 07/20/17 00:00 98.3 F 75 18 102/51 L 94 L 07/19/17 23:38 92 L Weight Weight 123 lb 4.8 oz I&O: 07/19/17 07/20/17 07/21/17 06:59 06:59 06:59 Intake Total 750 1090 Output Total 1025 2170 Balance -275 -1080 Result Diagrams: 07/20/17 04:16 07/20/17 04:16 Additional Labs: Accuchecks 07/20/17 07/19/17 07/19/17 06:05 21:12 17:00 POC Glucose 112 H 130 H 108 07/19/17 11:03 POC Glucose 110 EKG Reviewed by me: Yes Phys Exam - Physical Examination Constitutional: NAD HEENT: PERRLA, moist MMs, sclera anicteric Neck: no JVD, supple Respiratory: no wheezing, no rhonchi rigth base rales, Cardiovascular: RRR, no significant murmur, no rub Gastrointestinal: soft, non-tender, no distention, positive bowel sounds Musculoskeletal: no edema, pulses present Neurological: non-focal, normal sensation Lymphatic: no nodes Psychiatric: normal affect Skin: no rash, normal turgor Dx/Plan (1) Acute on chronic combined systolic and diastolic congestive heart failure Code(s): I50.43 - ACUTE ON CHRONIC COMBINED SYSTOLIC AND DIASTOLIC HRT FAIL Status: Acute (2) Acute respiratory failure with hypoxia Code(s): J96.01 - ACUTE RESPIRATORY FAILURE WITH HYPOXIA Status: Acute (3) Community acquired bacterial pneumonia Code(s): J15.9 - UNSPECIFIED BACTERIAL PNEUMONIA Status: Acute (4) Hyponatremia Code(s): E87.1 - HYPO-OSMOLALITY AND HYPONATREMIA Status: Acute (5) NSTEMI (non-ST elevated myocardial infarction) Code(s): I21.4 - NON-ST ELEVATION (NSTEMI) MYOCARDIAL INFARCTION Status: Acute (6) Thrombocytopenia Code(s): D69.6 - THROMBOCYTOPENIA, UNSPECIFIED Status: Acute (7) Anemia, normocytic normochromic Code(s): D64.9 - ANEMIA, UNSPECIFIED Status: Chronic (8) CAD (coronary artery disease) Code(s): I25.10 - ATHSCL HEART DISEASE OF [place] CORONARY ARTERY W/O ANG PCTRS Status: Chronic (9) COPD (chronic obstructive pulmonary disease) Status: Chronic (10) DJD (degenerative joint disease) Code(s): M19.90 - UNSPECIFIED OSTEOARTHRITIS, UNSPECIFIED SITE Status: Chronic (11) Deafness Code(s): H91.90 - UNSPECIFIED HEARING LOSS, UNSPECIFIED EAR Status: Chronic (12) Diabetes type 2, controlled Code(s): E11.9 - TYPE 2 DIABETES MELLITUS WITHOUT COMPLICATIONS Status: Chronic (13) Dyslipidemia Code(s): E78.5 - HYPERLIPIDEMIA, UNSPECIFIED Status: Chronic (14) Hypokalemia Code(s): E87.6 - HYPOKALEMIA Status: Acute (15) Hypomagnesemia Code(s): E83.42 - HYPOMAGNESEMIA Status: Acute - Plan cont current plan of care, continue antibiotics, PT/OT, respiratory therapy * continue lovenox * continue current conservative medical therapy * continue iv antibiotics * medication reviewed as below * symptomatic treatment * pt is improving * will consider discharge in 24-48 hours. * replace magnesium and potassium * echo result pending Review of Systems - Review of Systems Constitutional: negative: Fever, Chills, Sweats, Weakness, Malaise, Other ENT: negative: Ear Pain, Ear Discharge, Nose Pain, Nose Discharge, Nose Congestion, Mouth Pain, Mouth Swelling, Throat Pain, Throat Swelling, Other Respiratory: Cough, SOB with Excertion. negative: Dry, Shortness of Breath, Hemoptysis, Pleuritic Pain, Sputum, Wheezing Cardiovascular: negative: Chest Pain, Palpitations, Orthopnea, Paroxysmal Noc. Dyspnea, Edema, Light Headedness, Other Gastrointestinal: negative: Nausea, Vomiting, Abdominal Pain, Diarrhea, Constipation, Melena, Hematochezia, Other Genitourinary: negative: Dysuria, Frequency, Incontinence, Hematuria, Retention , Other Musculoskeletal: negative: Neck Pain, Shoulder Pain, Arm Pain, Back Pain, Hand Pain, Leg Pain, Foot Pain, Other Skin: negative: Rash, Lesions, [place], Bruising, Other - Medications/Allergies Allergies/Adverse Reactions: Allergies Allergy/AdvReac Type Severity Reaction Status Date / Time No Known Drug Allergies Allergy Verified 07/18/17 15:57 Medications: Current Medications Acetaminophen (Tylenol) 650 mg PO Q4H PRN PRN Reason: Headache/Fever or Pain Last Admin: 07/19/17 07:24 Dose: 650 mg Hydrocodone Bitart/Acetaminophen ([place] 5/325) 1 tab PO Q4H PRN PRN Reason: Moderate Pain (4-6) Al Hydroxide/Mg Hydroxide (Maalox) 30 ml PO Q6H PRN PRN Reason: Heartburn or Indigestion Albuterol/Ipratropium (Duoneb) 3 ml NEB [id number] [facility] Last Admin: 07/20/17 07:35 Dose: 3 ml Artificial Tears (Tears Naturale) 0 drop EA EYE PRN PRN PRN Reason: Dry Eyes Aspirin (Aspirin Chewable) 81 mg PO DAILY [facility] Last Admin: 07/20/17 09:41 Dose: 81 mg Atorvastatin Calcium (Lipitor) 20 mg PO HS [facility] Last Admin: 07/19/17 20:22 Dose: 20 mg Carvedilol (Coreg) 3.125 mg PO BID [facility] Last Admin: 07/20/17 09:42 Dose: 3.125 mg Clopidogrel Bisulfate (Plavix) 75 mg PO QAM [facility] Last Admin: 07/20/17 09:42 Dose: 75 mg Dextrose/Water (Dextrose 50%) 25 gm SLOW IVP PRN PRN PRN Reason: Hypoglycemia Enoxaparin Sodium (Lovenox) 30 mg SC 0900,2100 [facility] Last Admin: 07/20/17 09:43 Dose: 30 mg Famotidine (Pepcid) 20 mg PO Q24HR [facility] Last Admin: 07/19/17 20:22 Dose: 20 mg Ferrous Sulfate (Feosol) 325 mg PO QAM-WM [facility] Last Admin: 07/20/17 09:42 Dose: 325 mg Furosemide (Lasix) 20 mg SLOW IVP 0600,1400 [facility] Last Admin: 07/20/17 06:35 Dose: 20 mg Glucagon (Glucagon) 1 mg IM PRN PRN PRN Reason: Hypoglycemia Guaifenesin (Robitussin Sf) 200 mg PO Q4H PRN PRN Reason: Cough Last Admin: 07/20/17 09:52 Dose: 200 mg Guaifenesin (Mucinex) 600 mg PO Q12HR [facility] Last Admin: 07/20/17 09:42 Dose: 600 mg Hydralazine HCl (Apresoline) 10 mg SLOW IVP Q4H PRN PRN Reason: Systolic BP > 180 Dextrose/Water (D5w) 1,000 mls @ 0 mls/hr IV .Q0M PRN; As Directed PRN Reason: Hypoglycemia Levofloxacin 500 mg/ Device 100 mls @ 100 mls/hr IVPB 1600 [facility] Last Admin: 07/19/17 15:03 Dose: 100 mls Ceftriaxone Sodium 1 gm/ (Syringe 0.4 ml/ Sterile Water) 10 mls @ 120 mls/hr SLOW IVP 1600 [facility] Last Admin: 07/19/17 15:02 Dose: 10 mls Magnesium Sulfate 4 gm/ Sodium (Chloride) 258 mls @ 86 mls/hr IVPB 0830 [facility] Stop: 07/20/17 11:29 Insulin Human Lispro (Humalog) 0 units SC .MODERATE SLIDING SC PRN PRN Reason: Moderate Correctional Scale Insulin Human Lispro (Humalog) 0 units SC .BEDTIME SLIDING SC PRN PRN Reason: Bedtime Correctional Scale Isosorbide Mononitrate (Imdur Er) 30 mg PO DAILY [facility] Last Admin: 07/19/17 11:36 Dose: 30 mg Lisinopril (Zestril) 2.5 mg PO BID [facility] Last Admin: 07/19/17 20:22 Dose: 2.5 mg Loperamide HCl (Imodium) 2 mg PO PRN PRN PRN Reason: Diarrhea/Loose Stools Loratadine (Claritin) 10 mg PO DAILYPRN PRN PRN Reason: Sinus Symptoms Magnesium Hydroxide (Milk Of Magnesium) 30 ml PO DAILYPRN PRN PRN Reason: Constipation Mineral Oil/White Petrolatum (Eucerin Cream) 0 gm TOP BIDPRN PRN PRN Reason: Dry Skin Nitroglycerin (Nitrostat) 0.4 mg SL Q5MIN PRN PRN Reason: Chest Pain Ondansetron HCl (Zofran Odt) 4 mg PO Q6H PRN PRN Reason: Nausea/Vomiting Ondansetron HCl (Zofran) 4 mg IVP Q6H PRN PRN Reason: Nausea/Vomiting Phenol (Chloraseptic [place] 180 Ml Bot) 0 ml PO PRN PRN PRN Reason: Sore Throat Potassium Chloride (K-Dur) 40 meq PO 0830 [facility] Stop: 07/20/17 11:00 Last Admin: 07/20/17 09:42 Dose: 40 meq Saccharomyces Boulardii (Florastor) 250 mg PO DAILY [facility] Last Admin: 07/20/17 09:42 Dose: 250 mg Senna (Senokot) 2 tab PO HSPRN PRN PRN Reason: Constipation Sodium Chloride ([place] Nasal [place] 0.65%) 0 ml EA NARE QIDPRN PRN PRN Reason: Nasal Congestion
[2017-07-20] MEDS: Sodium Chloride 0.9% 10 ML ONE ×2 (15:03→16:39)
--- NOTE | 2017-07-20 15:55 | PRG ---
DATE OF SERVICE: 07/20/2017 SUBJECTIVE: Ms. Jackson has no new problems. She is ambulating in the room. OBJECTIVE: VITAL SIGNS: She is afebrile, heart rate is in the 90s, respiratory rate is in the teens and oximetr y is 97% on 2 liters. LABORATORY AND IMAGING DATA: There are no new exam findings. IMPRESSION: Pneumonia, clinically stable. She can be switched to p.o. antimicrobial therapy.
[2017-07-20] MEDS: cefTRIAXone\\ROCEPHIN 1 GM, Syringe 0.4 ML in Sterile Water 9.6 ML SLOW IVP SCH (16:38)
[2017-07-20] MEDS ORDERED: Diltiazem 125 MG in Sodium Chloride 0.9% 100 ML IVPB SCH (18:00)
[2017-07-20] MEDS: Atorvastatin Calcium 20 MG TAB PO SCH (21:41)
[2017-07-20] MEDS: Lisinopril 2.5 MG TAB PO SCH (21:44)
[2017-07-20] MEDS: Famotidine 20 MG TAB PO SCH (21:48)
[2017-07-21] MEDS: Diabetic Tussin 200 MG/10 ML UDCUP PO PRN ×3 (04:50→14:59)
[2017-07-21] MEDS: Furosemide 20 MG/2 ML VIAL SLOW IVP SCH ×2 (06:20→14:59)
[2017-07-21] MEDS: Acetaminophen 325 MG TAB PO PRN (06:20)
[2017-07-21] MEDS: Enoxaparin Sodium 30 MG/0.3 ML SYRINGE SC SCH ×2 (09:21→20:53)
[2017-07-21] MEDS: Ferrous Sulfate 325 MG TAB PO SCH (09:22)
[2017-07-21] MEDS: Lisinopril 2.5 MG TAB PO SCH ×2 (09:22→20:52)
[2017-07-21] MEDS: Clopidogrel Bisulfate 75 MG TAB PO SCH (09:23)
[2017-07-21] MEDS: Carvedilol 3.125 MG TAB PO SCH ×2 (09:23→20:53)
[2017-07-21] MEDS: guaiFENesin ER 600 MG TAB PO SCH ×2 (09:23→20:52)
[2017-07-21] MEDS: Saccharomyces boulardii 250 MG CAP PO SCH (09:23)
--- NOTE | 2017-07-21 11:04 | PDOC.PN ---
- Subjective Encounter Start Date: 07/21/17 Encounter Start Time: 11:02 Subjective: feels better, but continued cough - Objective Resuscitation Status: Resuscitation Status FULL:Full Resuscitation MAR Reviewed: Yes Vital Signs & Weight: Vital Signs (12 hours) Temp Pulse Resp BP BP Pulse Ox 07/21/17 09:22 84 108/58 L 07/21/17 08:15 97.8 F 84 18 117/58 L 92 L 07/21/17 07:26 96 07/21/17 07:23 66 12 07/21/17 04:00 97.6 F 68 18 117/71 93 L 07/21/17 00:07 98 07/21/17 00:05 64 20 98 07/21/17 00:00 97.8 F Weight Weight 123 lb 4.8 oz I&O: 07/20/17 07/21/17 07/22/17 06:59 06:59 06:59 Intake Total 1090 1014.5 Output Total 2170 1625 Balance -1080 -610.5 Result Diagrams: 07/20/17 04:16 07/20/17 04:16 Additional Labs: Accuchecks 07/21/17 07/20/17 07/20/17 06:10 20:51 17:16 POC Glucose 115 H 174 H 136 H 07/20/17 11:28 POC Glucose 131 H Phys Exam - Physical Examination Constitutional: NAD HEENT: PERRLA, moist MMs, sclera anicteric Neck: supple, full ROM rhonchi Cardiovascular: RRR, no significant murmur Gastrointestinal: soft, non-tender Musculoskeletal: no edema, pulses present Neurological: non-focal, moves all 4 limbs speech impediment Psychiatric: normal affect, A&O x 3 Dx/Plan (1) Acute on chronic combined systolic and diastolic congestive heart failure Code(s): I50.43 - ACUTE ON CHRONIC COMBINED SYSTOLIC AND DIASTOLIC HRT FAIL Status: Acute (2) Acute respiratory failure with hypoxia Code(s): J96.01 - ACUTE RESPIRATORY FAILURE WITH HYPOXIA Status: Acute (3) Community acquired bacterial pneumonia Code(s): J15.9 - UNSPECIFIED BACTERIAL PNEUMONIA Status: Acute (4) Hypokalemia Code(s): E87.6 - HYPOKALEMIA Status: Acute (5) Hypomagnesemia Code(s): E83.42 - HYPOMAGNESEMIA Status: Acute (6) Hyponatremia Code(s): E87.1 - HYPO-OSMOLALITY AND HYPONATREMIA Status: Acute (7) NSTEMI (non-ST elevated myocardial infarction) Code(s): I21.4 - NON-ST ELEVATION (NSTEMI) MYOCARDIAL INFARCTION Status: Acute (8) Anemia, normocytic normochromic Code(s): D64.9 - ANEMIA, UNSPECIFIED Status: Chronic (9) CAD (coronary artery disease) Code(s): I25.10 - ATHSCL HEART DISEASE OF [place] CORONARY ARTERY W/O ANG PCTRS Status: Chronic (10) COPD (chronic obstructive pulmonary disease) Status: Chronic (11) Deafness Code(s): H91.90 - UNSPECIFIED HEARING LOSS, UNSPECIFIED EAR Status: Chronic (12) Diabetes type 2, controlled Code(s): E11.9 - TYPE 2 DIABETES MELLITUS WITHOUT COMPLICATIONS Status: Chronic - Plan cont current plan of care, continue antibiotics, respiratory therapy ef 40-45% home once cleared by cards and pulmonary * .
--- NOTE | 2017-07-21 14:37 | PRG ---
DATE OF SERVICE: 07/21/2017 SUBJECTIVE: Ms. Jackson has no complaints other than wanting to go home. OBJECTIVE: VITAL SIGNS: She is afebrile, heart rate 65, respiratory rate 18, oximetry is 93, blood pressure 118 /56. LUNGS: Clear anteriorly and laterally. HEART: Regular rhythm. ABDOMEN: Soft. LABORATORY DATA: There is no new lab other than blood glucoses today. IMPRESSION: 1. Congestive heart failure, clinically stable. 2. Pneumonia, clinically stable on p.o. antimicrobial therapy. PLAN: Continue supportive care. Discharge is probably reasonable given her stability.
[2017-07-21] MEDS: cefTRIAXone\\ROCEPHIN 1 GM, Syringe 0.4 ML in Sterile Water 9.6 ML SLOW IVP SCH (15:57)
[2017-07-21] MEDS: Famotidine 20 MG TAB PO SCH (20:52)
[2017-07-21] MEDS: Atorvastatin Calcium 20 MG TAB PO SCH (20:53)
[2017-07-22] MEDS: Diabetic Tussin 200 MG/10 ML UDCUP PO PRN ×4 (00:43→21:49)
[2017-07-22] MEDS: Acetaminophen 325 MG TAB PO PRN (00:43)
[2017-07-22 05:28] LABS: #Eosinphils 0.1 thou/uL (0.0-0.7); #Monocytes 0.3 thou/uL (0.11-0.59); #Neutrophils 2.8 thou/uL (1.40-6.50); %Eosinophils 2.6 % (0.0-10.0); %Lymphocytes 23.9 % (21.0-51.0); %Monocytes 6.3 % (0.0-10.0); Hematocrit 26.5 % (36.0-47.0); Red Blood Cell (RBC) Count 2.74 mill/uL (4.20-5.40); White Blood Cell (WBC) Count 4.1 thou/uL (4.8-10.8)
[2017-07-22 05:43] LABS: Anion Gap 10 mmol/L (10-20); BUN (Urea Nitrogen) 12 mg/dL (9.8-20.1); Calc. Creatinine Clearance 37 mL/min (70-130); Calcium 8.9 mg/dL (7.8-10.44); Carbon Dioxide 32 mmol/L (23-31); Chloride 97 mmol/L (98-107); Estimated GFR-MDRD 47
[2017-07-22] MEDS: Furosemide 20 MG/2 ML VIAL SLOW IVP SCH ×2 (05:52→15:42)
[2017-07-22] MEDS: Saccharomyces boulardii 250 MG CAP PO SCH (09:09)
[2017-07-22] MEDS: Enoxaparin Sodium 30 MG/0.3 ML SYRINGE SC SCH (09:09)
[2017-07-22] MEDS: Carvedilol 3.125 MG TAB PO SCH ×2 (09:09→19:44)
[2017-07-22] MEDS: Lisinopril 2.5 MG TAB PO SCH ×2 (09:09→21:50)
[2017-07-22] MEDS: Ferrous Sulfate 325 MG TAB PO SCH (09:09)
[2017-07-22] MEDS: Clopidogrel Bisulfate 75 MG TAB PO SCH (09:09)
[2017-07-22] MEDS: guaiFENesin ER 600 MG TAB PO SCH ×2 (09:09→21:49)
--- NOTE | 2017-07-22 09:56 | PDOC.PN ---
- Subjective Encounter Start Date: 07/22/17 Encounter Start Time: 07:50 -: old records requested/rev pt has lot of cough, feels weak, no fever, Patient seen and examined. No overnight events - Objective Resuscitation Status: Resuscitation Status FULL:Full Resuscitation MAR Reviewed: Yes Vital Signs & Weight: Vital Signs (12 hours) Temp Pulse Resp BP BP Pulse Ox 07/22/17 09:10 98.0 F 07/22/17 09:09 75 130/63 07/22/17 07:40 75 20 130/63 93 L 07/22/17 07:36 72 16 96 07/22/17 04:44 97.7 F 75 20 125/57 L 96 07/22/17 01:11 98 07/22/17 00:55 78 16 98 07/22/17 00:35 96.4 F L 77 20 123/59 L 93 L Weight Weight 120 lb 14.4 oz I&O: 07/21/17 07/22/17 07/23/17 06:59 06:59 06:59 Intake Total 1014.5 1105.7 Output Total 1625 2350 Balance -610.5 -1244.3 Result Diagrams: 07/22/17 04:22 07/22/17 04:22 Additional Labs: Accuchecks 07/22/17 07/21/17 07/21/17 06:24 19:53 16:43 POC Glucose 120 H 191 H 144 H 07/21/17 11:32 POC Glucose 134 H EKG Reviewed by me: Yes (NSR) Phys Exam - Physical Examination Constitutional: NAD HEENT: PERRLA, moist MMs, sclera anicteric Neck: no JVD, supple Respiratory: no wheezing, no rhonchi right base rales Cardiovascular: RRR, no significant murmur, no rub Gastrointestinal: soft, non-tender, no distention, positive bowel sounds Musculoskeletal: no edema, pulses present Neurological: non-focal, normal sensation, moves all 4 limbs Psychiatric: normal affect, A&O x 3 Skin: no rash, normal turgor Dx/Plan (1) Acute on chronic combined systolic and diastolic congestive heart failure Code(s): I50.43 - ACUTE ON CHRONIC COMBINED SYSTOLIC AND DIASTOLIC HRT FAIL Status: Acute (2) Acute respiratory failure with hypoxia Code(s): J96.01 - ACUTE RESPIRATORY FAILURE WITH HYPOXIA Status: Acute (3) Community acquired bacterial pneumonia Code(s): J15.9 - UNSPECIFIED BACTERIAL PNEUMONIA Status: Acute (4) Hyponatremia Code(s): E87.1 - HYPO-OSMOLALITY AND HYPONATREMIA Status: Acute (5) NSTEMI (non-ST elevated myocardial infarction) Code(s): I21.4 - NON-ST ELEVATION (NSTEMI) MYOCARDIAL INFARCTION Status: Acute (6) Thrombocytopenia Code(s): D69.6 - THROMBOCYTOPENIA, UNSPECIFIED Status: Acute (7) Anemia, normocytic normochromic Code(s): D64.9 - ANEMIA, UNSPECIFIED Status: Chronic (8) CAD (coronary artery disease) Code(s): I25.10 - ATHSCL HEART DISEASE OF [place] CORONARY ARTERY W/O ANG PCTRS Status: Chronic (9) COPD (chronic obstructive pulmonary disease) Status: Chronic (10) DJD (degenerative joint disease) Code(s): M19.90 - UNSPECIFIED OSTEOARTHRITIS, UNSPECIFIED SITE Status: Chronic (11) Deafness Code(s): H91.90 - UNSPECIFIED HEARING LOSS, UNSPECIFIED EAR Status: Chronic (12) Diabetes type 2, controlled Code(s): E11.9 - TYPE 2 DIABETES MELLITUS WITHOUT COMPLICATIONS Status: Chronic (13) Dyslipidemia Code(s): E78.5 - HYPERLIPIDEMIA, UNSPECIFIED Status: Chronic - Plan cont current plan of care, continue antibiotics, respiratory therapy * today will check her need for home oxygen with walking * continue IV antibiotics as ordered, rocephin and po levaquin * medication reviewed as below * symptomatic treatment * cardiac gerardo stable and improving. * will monitor Review of Systems - Review of Systems Constitutional: Weakness. negative: Fever, Chills, Sweats, Malaise, Other ENT: negative: Ear Pain, Ear Discharge, Nose Pain, Nose Discharge, Nose Congestion, Mouth Pain, Mouth Swelling, Throat Pain, Throat Swelling, Other Respiratory: Cough, Shortness of Breath, SOB with Excertion Cardiovascular: negative: Chest Pain, Palpitations, Orthopnea, Paroxysmal Noc. Dyspnea, Edema, Light Headedness, Other Gastrointestinal: negative: Nausea, Vomiting, Abdominal Pain, Diarrhea, Constipation, Melena, Hematochezia, Other Genitourinary: negative: Dysuria, Frequency, Incontinence, Hematuria, Retention , Other Musculoskeletal: negative: Neck Pain, Shoulder Pain, Arm Pain, Back Pain, Hand Pain, Leg Pain, Foot Pain, Other Skin: negative: Rash, Lesions, [place], Bruising, Other - Medications/Allergies Allergies/Adverse Reactions: Allergies Allergy/AdvReac Type Severity Reaction Status Date / Time No Known Drug Allergies Allergy Verified 07/18/17 15:57 Medications: Current Medications Acetaminophen (Tylenol) 650 mg PO Q4H PRN PRN Reason: Headache/Fever or Pain Last Admin: 07/22/17 00:43 Dose: 650 mg Hydrocodone Bitart/Acetaminophen ([place] 5/325) 1 tab PO Q4H PRN PRN Reason: Moderate Pain (4-6) Al Hydroxide/Mg Hydroxide (Maalox) 30 ml PO Q6H PRN PRN Reason: Heartburn or Indigestion Albuterol/Ipratropium (Duoneb) 3 ml NEB [id number] [facility] Last Admin: 07/22/17 07:36 Dose: 3 ml Artificial Tears (Tears Naturale) 0 drop EA EYE PRN PRN PRN Reason: Dry Eyes Aspirin (Aspirin Chewable) 81 mg PO DAILY [facility] Last Admin: 07/22/17 09:09 Dose: 81 mg Atorvastatin Calcium (Lipitor) 20 mg PO HS [facility] Last Admin: 07/21/17 20:53 Dose: 20 mg Carvedilol (Coreg) 3.125 mg PO BID [facility] Last Admin: 07/22/17 09:09 Dose: 3.125 mg Clopidogrel Bisulfate (Plavix) 75 mg PO QAM [facility] Last Admin: 07/22/17 09:09 Dose: 75 mg Dextrose/Water (Dextrose 50%) 25 gm SLOW IVP PRN PRN PRN Reason: Hypoglycemia Enoxaparin Sodium (Lovenox) 30 mg SC 0900,2100 [facility] Last Admin: 07/22/17 09:09 Dose: 30 mg Famotidine (Pepcid) 20 mg PO Q24HR [facility] Last Admin: 07/21/17 20:52 Dose: 20 mg Ferrous Sulfate (Feosol) 325 mg PO QAM[facility] Last Admin: 07/22/17 09:09 Dose: 325 mg Furosemide (Lasix) 20 mg SLOW IVP 0600,1400 [facility] Last Admin: 07/22/17 05:52 Dose: 20 mg Glucagon (Glucagon) 1 mg IM PRN PRN PRN Reason: Hypoglycemia Guaifenesin (Robitussin Sf) 200 mg PO Q4H PRN PRN Reason: Cough Last Admin: 07/22/17 05:52 Dose: 200 mg Guaifenesin (Mucinex) 600 mg PO Q12HR [facility] Last Admin: 07/22/17 09:09 Dose: 600 mg Hydralazine HCl (Apresoline) 10 mg SLOW IVP Q4H PRN PRN Reason: Systolic BP > 180 Dextrose/Water (D5w) 1,000 mls @ 0 mls/hr IV .Q0M PRN; As Directed PRN Reason: Hypoglycemia Ceftriaxone Sodium 1 gm/ (Syringe 0.4 ml/ Sterile Water) 10 mls @ 120 mls/hr SLOW IVP 1600 [facility] Last Admin: 07/21/17 15:57 Dose: 10 mls Insulin Human Lispro (Humalog) 0 units SC .MODERATE SLIDING SC PRN PRN Reason: Moderate Correctional Scale Insulin Human Lispro (Humalog) 0 units SC .BEDTIME SLIDING SC PRN PRN Reason: Bedtime Correctional Scale Isosorbide Mononitrate (Imdur Er) 30 mg PO DAILY [facility] Last Admin: 07/22/17 09:09 Dose: 30 mg Levofloxacin (Levaquin) 500 mg PO 1999 [facility] Last Admin: 07/21/17 20:53 Dose: 500 mg Lisinopril (Zestril) 2.5 mg PO BID [facility] Last Admin: 07/22/17 09:09 Dose: 2.5 mg Loperamide HCl (Imodium) 2 mg PO PRN PRN PRN Reason: Diarrhea/Loose Stools Loratadine (Claritin) 10 mg PO DAILYPRN PRN PRN Reason: Sinus Symptoms Magnesium Hydroxide (Milk Of Magnesium) 30 ml PO DAILYPRN PRN PRN Reason: Constipation Mineral Oil/White Petrolatum (Eucerin Cream) 0 gm TOP BIDPRN PRN PRN Reason: Dry Skin Nitroglycerin (Nitrostat) 0.4 mg SL Q5MIN PRN PRN Reason: Chest Pain Ondansetron HCl (Zofran Odt) 4 mg PO Q6H PRN PRN Reason: Nausea/Vomiting Ondansetron HCl (Zofran) 4 mg IVP Q6H PRN PRN Reason: Nausea/Vomiting Phenol (Chloraseptic [place] 180 Ml Bot) 0 ml PO PRN PRN PRN Reason: Sore Throat Saccharomyces Boulardii (Florastor) 250 mg PO DAILY [facility] Last Admin: 07/22/17 09:09 Dose: 250 mg Senna (Senokot) 2 tab PO HSPRN PRN PRN Reason: Constipation Last Admin: 07/22/17 05:52 Dose: 2 tab Sodium Chloride ([place] Nasal [place] 0.65%) 0 ml EA NARE QIDPRN PRN PRN Reason: Nasal Congestion Sodium Chloride (Flush - Normal Saline) 10 ml IVF Q12HR [facility] Last Admin: 07/22/17 09:08 Dose: 10 ml Sodium Chloride (Flush - Normal Saline) 10 ml IVF PRN PRN PRN Reason: Saline Flush Last Admin: 07/22/17 05:52 Dose: 10 ml
--- NOTE | 2017-07-22 13:12 | PRG ---
DATE OF SERVICE: 07/22/2017 SUBJECTIVE: Ms. Jackson is sitting up in the chair, states she is feeling better. OBJECTIVE: VITAL SIGNS: Her blood pressure is 111/54, pulse 70 and it is regular. LUNGS: Clear anteriorly posteriorly. She has got scattered rales, sounds like she has some pulmonar y fibrosis. CARDIAC: Normal S1, normal S2. ASSESSMENT: 1. Respiratory failure. 2. Community-acquired pneumonia. 3. Non-ST elevation myocardial infarction. 4. Coronary artery disease with distal atherosclerosis. 5. Paroxysmal atrial fibrillation. 6. Anemia. I suspect iron deficiency. Hemoglobin is 9.4. PLAN: 1. We will check iron levels tomorrow. 2. Reduce Lovenox. 3. Replete potassium. 4. Long-term prognosis is guarded.
--- NOTE | 2017-07-22 15:22 | PRG ---
DATE OF SERVICE: 07/22/2017 SERVICE: Pulmonary Medicine. INTERVAL HISTORY: The patient is doing really quite well from a respiratory standpoint. She current ly denies any shortness of breath or chest discomfort. She remains on a little bit of oxygen. Her p otassium was slightly low this morning. Otherwise, there has been no interval change to her conditio n. PHYSICAL EXAMINATION: VITAL SIGNS: Afebrile, pulse 72, blood pressure 111/54, respirations 22, saturation 98% on 2 liters nasal cannula. GENERAL: Patient is awake and alert, in no apparent distress. LUNGS: Excellent air entry. Dependent crackles are minimal. There is no prolonged expiratory phase . HEART: Normal rate, regular. ABDOMEN: Soft, nontender, nondistended. Bowel sounds positive. MUSCULOSKELETAL: No cyanosis or clubbing. No pitting in the bilateral lower extremities. NEUROLOGIC: Grossly nonfocal. LABORATORY DATA: WBC 4.1, hemoglobin 9.4, platelets 127,000 and trending back upwards. INR 1.1. Cr eatinine 1.4, potassium 3.4. Basic metabolic profile is otherwise unremarkable. ASSESSMENT: 1. Acute hypoxic respiratory failure, stable. 2. Community-acquired pneumonia. 3. Non-ST elevation myocardial infarction. 4. Acute on chronic systolic heart failure. 5. Coronary artery disease. 6. Atrial fibrillation, paroxysmal. 7. Type 2 diabetes mellitus. PLAN: We will continue antibiotics to complete a 7-day course of therapy. She will require repeat x -ray in 4-6 weeks after discharge from the hospital to verify the infiltrate results. Pulmonary Crit ical Care will continue to follow for the time being. Potassium has been replaced this morning.
[2017-07-22] MEDS: cefTRIAXone\\ROCEPHIN 1 GM, Syringe 0.4 ML in Sterile Water 9.6 ML SLOW IVP SCH (15:42)
[2017-07-22] MEDS ORDERED: Potassium Chloride 20 MEQ TAB PO SCH (17:00)
[2017-07-22] MEDS: Atorvastatin Calcium 20 MG TAB PO SCH (21:49)
[2017-07-22] MEDS: Famotidine 20 MG TAB PO SCH (21:49)
[2017-07-23 04:59] LABS: #Eosinphils 0.1 thou/uL (0.0-0.7); #Lymphocytes 0.8 thou/uL (1.20-3.40); #Monocytes 0.3 thou/uL (0.11-0.59); #Neutrophils 2.8 thou/uL (1.40-6.50); %Basophils 0.2 % (0.0-1.0); %Eosinophils 3.8 % (0.0-10.0); %Lymphocytes 18.8 % (21.0-51.0); %Monocytes 6.9 % (0.0-10.0); Hematocrit 25.5 % (36.0-47.0); Mean Platelet Volume 8.4 fL (7.4-10.4); Red Blood Cell (RBC) Count 2.64 mill/uL (4.20-5.40)
[2017-07-23 05:25] LABS: Iron 37 ug/dL (50-170)
[2017-07-23 05:31] LABS: Anion Gap 10 mmol/L (10-20); BUN (Urea Nitrogen) 15 mg/dL (9.8-20.1); Calc. Creatinine Clearance 44 mL/min (70-130); Calcium 8.8 mg/dL (7.8-10.44); Carbon Dioxide 31 mmol/L (23-31); Chloride 96 mmol/L (98-107); Estimated GFR-MDRD 56; Iron 36 ug/dL (50-170)
[2017-07-23] MEDS: Furosemide 20 MG/2 ML VIAL SLOW IVP SCH ×3 (06:31→13:58)
--- NOTE | 2017-07-23 07:59 | RAD ---
UPRIGHT PORTABLE CHEST 1 VIEW: Date: 07/23/17 HISTORY: 72-year-old female with congestive heart failure follow-up. COMPARISON: 07/18/17. FINDINGS: Postop midline sternotomy. Monitor leads overlie the chest. Improving bilateral vascular congestion a nd interstitial edema and pleural effusions with some persistent linear and parenchymal changes in th e bases and costophrenic angle blunting and small pleural effusions. No new process. IMPRESSION: Improving findings of congestive heart failure with some persistent small pleural effusions and minim al infrahilar bilateral parenchymal changes. POS: DELIA
[2017-07-23] MEDS: Ferrous Sulfate 325 MG TAB PO SCH (08:59)
[2017-07-23] MEDS: Carvedilol 3.125 MG TAB PO SCH (08:59)
[2017-07-23] MEDS: Clopidogrel Bisulfate 75 MG TAB PO SCH (08:59)
[2017-07-23] MEDS: Lisinopril 2.5 MG TAB PO SCH (09:00)
[2017-07-23] MEDS: Saccharomyces boulardii 250 MG CAP PO SCH (09:00)
[2017-07-23] MEDS: guaiFENesin ER 600 MG TAB PO SCH (09:00)
[2017-07-23] MEDS ORDERED: Enoxaparin Sodium 30 MG/0.3 ML SYRINGE SC SCH (09:00)
[2017-07-23] MEDS ORDERED: Iron Dextran 500 MG, Admixture Fee 1 EACH in Sodium Chloride 0.9% 250 ML IVPB SCH (09:00)
--- NOTE | 2017-07-23 09:15 | PRG ---
DATE OF SERVICE: 07/23/2017 Ms. Jackson is doing better today, no chest pain. She is not short of breath. PHYSICAL EXAMINATION: VITAL SIGNS: Her blood pressure 130/60, pulse in the 60s. LUNGS: Clear. CARDIAC: Normal S1, S2. LUNGS: Lungs clear, she did not have any wheezing, but she has diffuse rales bilaterally. CARDIAC: Normal S1, S2. LABORATORY: Hemoglobin is 8.9, hematocrit 25.5, iron studies indicate she is iron deficient. ASSESSMENT: 1. Iron deficiency anemia. 2. Congestive heart failure, diastolic, improved. 3. Status post non-ST elevation infarction. 4. Previous bypass surgery, small distal vessels per the surgeon's nodes. PLAN: 1. IV iron. 2. Okay with me to go home and follow up with Dr. Oliva. 3. I would not recommend anticoagulating this patient who already has an iron deficiency anemia on t he current medical regimen.
--- NOTE | 2017-07-23 13:20 | PDOC.PN ---
- Subjective Encounter Start Date: 07/23/17 Encounter Start Time: 10:15 Patient seen and examined. No new complaints. No overnight events - Objective Resuscitation Status: Resuscitation Status FULL:Full Resuscitation MAR Reviewed: Yes Vital Signs & Weight: Vital Signs (12 hours) Temp Pulse Resp BP BP Pulse Ox 07/23/17 12:14 76 16 97 07/23/17 11:33 97.9 F 79 17 117/59 L 95 07/23/17 09:00 98 133/60 07/23/17 08:56 98.0 F 98 16 130/60 94 L 07/23/17 07:27 80 16 97 07/23/17 03:28 98.2 F 75 23 H 118/57 L 97 Weight Weight 120 lb 6.56 oz I&O: 07/22/17 07/23/17 07/24/17 06:59 06:59 06:59 Intake Total 1105.7 896 Output Total 2350 2550 Balance -1244.3 -1654 Result Diagrams: 07/23/17 04:28 07/23/17 04:28 Additional Labs: Accuchecks 07/23/17 07/23/17 07/22/17 11:33 06:08 20:28 POC Glucose 107 105 229 H 07/22/17 16:49 POC Glucose 112 H Radiology Reviewed by me: Yes (chest xray) EKG Reviewed by me: Yes Phys Exam - Physical Examination Constitutional: NAD HEENT: PERRLA, moist MMs, sclera anicteric Neck: no JVD, supple Respiratory: no wheezing, no rales, no rhonchi Cardiovascular: RRR, no significant murmur, no rub Gastrointestinal: soft, non-tender, no distention, positive bowel sounds Musculoskeletal: no edema, pulses present Neurological: non-focal, normal sensation Lymphatic: no nodes Psychiatric: normal affect Skin: no rash, normal turgor Dx/Plan (1) Acute on chronic combined systolic and diastolic congestive heart failure Code(s): I50.43 - ACUTE ON CHRONIC COMBINED SYSTOLIC AND DIASTOLIC HRT FAIL Status: Acute (2) Acute respiratory failure with hypoxia Code(s): J96.01 - ACUTE RESPIRATORY FAILURE WITH HYPOXIA Status: Acute (3) Community acquired bacterial pneumonia Code(s): J15.9 - UNSPECIFIED BACTERIAL PNEUMONIA Status: Acute (4) Hyponatremia Code(s): E87.1 - HYPO-OSMOLALITY AND HYPONATREMIA Status: Acute (5) NSTEMI (non-ST elevated myocardial infarction) Code(s): I21.4 - NON-ST ELEVATION (NSTEMI) MYOCARDIAL INFARCTION Status: Acute (6) Thrombocytopenia Code(s): D69.6 - THROMBOCYTOPENIA, UNSPECIFIED Status: Acute (7) Anemia, normocytic normochromic Code(s): D64.9 - ANEMIA, UNSPECIFIED Status: Chronic (8) CAD (coronary artery disease) Code(s): I25.10 - ATHSCL HEART DISEASE OF [place] CORONARY ARTERY W/O ANG PCTRS Status: Chronic (9) COPD (chronic obstructive pulmonary disease) Status: Chronic (10) DJD (degenerative joint disease) Code(s): M19.90 - UNSPECIFIED OSTEOARTHRITIS, UNSPECIFIED SITE Status: Chronic (11) Deafness Code(s): H91.90 - UNSPECIFIED HEARING LOSS, UNSPECIFIED EAR Status: Chronic (12) Diabetes type 2, controlled Code(s): E11.9 - TYPE 2 DIABETES MELLITUS WITHOUT COMPLICATIONS Status: Chronic (13) Dyslipidemia Code(s): E78.5 - HYPERLIPIDEMIA, UNSPECIFIED Status: Chronic - Plan cont current plan of care, continue antibiotics * medication reviewed as below * symptomatic treatment * see discharge carlitos. Review of Systems - Review of Systems ENT: negative: Ear Pain, Ear Discharge, Nose Pain, Nose Discharge, Nose Congestion, Mouth Pain, Mouth Swelling, Throat Pain, Throat Swelling, Other Respiratory: negative: Cough, Dry, Shortness of Breath, Hemoptysis, SOB with Excertion, Pleuritic Pain, Sputum, Wheezing Cardiovascular: negative: Chest Pain, Palpitations, Orthopnea, Paroxysmal Noc. Dyspnea, Edema, Light Headedness, Other Gastrointestinal: negative: Nausea, Vomiting, Abdominal Pain, Diarrhea, Constipation, Melena, Hematochezia, Other Genitourinary: negative: Dysuria, Frequency, Incontinence, Hematuria, Retention , Other Musculoskeletal: negative: Neck Pain, Shoulder Pain, Arm Pain, Back Pain, Hand Pain, Leg Pain, Foot Pain, Other - Medications/Allergies Allergies/Adverse Reactions: Allergies Allergy/AdvReac Type Severity Reaction Status Date / Time No Known Drug Allergies Allergy Verified 07/18/17 15:57 Medications: Current Medications Acetaminophen (Tylenol) 650 mg PO Q4H PRN PRN Reason: Headache/Fever or Pain Last Admin: 12/04/17 00:43 Dose: 650 mg Hydrocodone Bitart/Acetaminophen ([place] 5/325) 1 tab PO Q4H PRN PRN Reason: Moderate Pain (4-6) Last Admin: 07/22/17 17:28 Dose: 1 tab Al Hydroxide/Mg Hydroxide (Maalox) 30 ml PO Q6H PRN PRN Reason: Heartburn or Indigestion Albuterol/Ipratropium (Duoneb) 3 ml NEB [id number] Last Admin: 07/23/17 12:14 Dose: 3 ml Artificial Tears (Tears Naturale) 0 drop EA EYE PRN PRN PRN Reason: Dry Eyes Aspirin (Aspirin Chewable) 81 mg PO DAILY [facility] Last Admin: 07/23/17 08:59 Dose: 81 mg Atorvastatin Calcium (Lipitor) 20 mg PO HS [facility] Last Admin: 07/22/17 21:49 Dose: 20 mg Carvedilol (Coreg) 3.125 mg PO BID [facility] Last Admin: 07/23/17 08:59 Dose: 3.125 mg Clopidogrel Bisulfate (Plavix) 75 mg PO QAM [facility] Last Admin: 07/23/17 08:59 Dose: 75 mg Dextrose/Water (Dextrose 50%) 25 gm SLOW IVP PRN PRN PRN Reason: Hypoglycemia Enoxaparin Sodium (Lovenox) 30 mg SC 0900 [facility] Last Admin: 07/23/17 09:00 Dose: 30 mg Famotidine (Pepcid) 20 mg PO Q24HR [facility] Last Admin: 07/22/17 21:49 Dose: 20 mg Ferrous Sulfate (Feosol) 325 mg PO QAM-[facility] Last Admin: 07/23/17 08:59 Dose: 325 mg Furosemide (Lasix) 20 mg SLOW IVP 0600,1400 [facility] Last Admin: 07/23/17 06:31 Dose: 20 mg Glucagon (Glucagon) 1 mg IM PRN PRN PRN Reason: Hypoglycemia Guaifenesin (Robitussin Sf) 200 mg PO Q4H PRN PRN Reason: Cough Last Admin: 07/22/17 21:49 Dose: 200 mg Guaifenesin (Mucinex) 600 mg PO Q12HR [facility] Last Admin: 07/23/17 09:00 Dose: 600 mg Hydralazine HCl (Apresoline) 10 mg SLOW IVP Q4H PRN PRN Reason: Systolic BP > 180 Dextrose/Water (D5w) 1,000 mls @ 0 mls/hr IV .Q0M PRN; As Directed PRN Reason: Hypoglycemia Ceftriaxone Sodium 1 gm/ (Syringe 0.4 ml/ Sterile Water) 10 mls @ 120 mls/hr SLOW IVP 1600 [facility] Last Admin: 07/22/17 15:42 Dose: 10 mls Iron Dextran 500 mg/Miscellaneous Medication 1 each/ Sodium Chloride 250 mls @ 80 mls/hr IVPB ONE [facility] Stop: 07/23/17 21:00 Last Admin: 07/23/17 11:49 Dose: 250 mls Insulin Human Lispro (Humalog) 0 units SC .MODERATE SLIDING SC PRN PRN Reason: Moderate Correctional Scale Last Admin: 07/22/17 11:37 Dose: 2 unit Insulin Human Lispro (Humalog) 0 units SC .BEDTIME SLIDING SC PRN PRN Reason: Bedtime Correctional Scale Last Admin: 07/22/17 22:03 Dose: 2 unit Isosorbide Mononitrate (Imdur Er) 30 mg PO DAILY [facility] Last Admin: 07/23/17 09:00 Dose: 30 mg Levofloxacin (Levaquin) 500 mg PO 1999 [facility] Last Admin: 07/22/17 21:49 Dose: 500 mg Lisinopril (Zestril) 2.5 mg PO BID [facility] Last Admin: 07/23/17 09:00 Dose: 2.5 mg Loperamide HCl (Imodium) 2 mg PO PRN PRN PRN Reason: Diarrhea/Loose Stools Loratadine (Claritin) 10 mg PO DAILYPRN PRN PRN Reason: Sinus Symptoms Magnesium Hydroxide (Milk Of Magnesium) 30 ml PO DAILYPRN PRN PRN Reason: Constipation Mineral Oil/White Petrolatum (Eucerin Cream) 0 gm TOP BIDPRN PRN PRN Reason: Dry Skin Nitroglycerin (Nitrostat) 0.4 mg SL Q5MIN PRN PRN Reason: Chest Pain Ondansetron HCl (Zofran Odt) 4 mg PO Q6H PRN PRN Reason: Nausea/Vomiting Ondansetron HCl (Zofran) 4 mg IVP Q6H PRN PRN Reason: Nausea/Vomiting Phenol (Chloraseptic [place] 180 Ml Bot) 0 ml PO PRN PRN PRN Reason: Sore Throat Saccharomyces Boulardii (Florastor) 250 mg PO DAILY [facility] Last Admin: 07/23/17 09:00 Dose: 250 mg Senna (Senokot) 2 tab PO HSPRN PRN PRN Reason: Constipation Last Admin: 07/22/17 05:52 Dose: 2 tab Sodium Chloride ([place] Nasal [place] 0.65%) 0 ml EA NARE QIDPRN PRN PRN Reason: Nasal Congestion Sodium Chloride (Flush - Normal Saline) 10 ml IVF Q12HR [facility] Last Admin: 07/23/17 09:01 Dose: 10 ml Sodium Chloride (Flush - Normal Saline) 10 ml IVF PRN PRN PRN Reason: Saline Flush Last Admin: 07/22/17 05:52 Dose: 10 ml
--- NOTE | 2017-07-23 14:37 | DIS ---
DATE OF ADMISSION: 07/18/2017 DATE OF DISCHARGE: 07/23/2017 PRIMARY CARE PHYSICIAN: Jacki Moreno, family nurse practitioner. DISCHARGE DISPOSITION: Home with home health. PRIMARY DISCHARGE DIAGNOSES: 1. Acute on chronic systolic and diastolic congestive heart failure exacerbation. 2. Acute hypoxic respiratory failure. 3. Community-acquired bacterial pneumonia. 4. Hypokalemia. 5. Hypomagnesemia. 6. Hyponatremia. 7. Non-ST elevation myocardial infarction. 8. Thrombocytopenia. SECONDARY DISCHARGE DIAGNOSES: 1. Dyslipidemia. 2. Degenerative joint disease. 3. Diabetes type 2. 4. Sensorineural deafness. 5. Chronic obstructive pulmonary disease. 6. Coronary artery disease. 7. Normocytic normochromic anemia. PRIMARY PROCEDURE/OPERATION: None. RADIOLOGICAL INVESTIGATION: Chest x-ray on admission showed cardiomegaly, pulmonary vascular congest ion, patchy opacities at both lung bases. Echocardiography showed EF 40% to 45%, diastolic dysfuncti on, moderate tricuspid regurgitation. Repeat chest x-ray showed improvement in congestive heart fail ure. SIGNIFICANT LABORATORY DATA: WBC 4.0, hemoglobin 8.9, platelets 138, INR 1.1, sodium 133, potassium 4.1, BUN 15, creatinine 0.97, calcium 8.8. Iron 36, TIBC 260, saturation percentage 14, ferritin 155 . LFTs normal. LDL 47. Troponin 6.183. Urinalysis is unremarkable. DISCHARGE MEDICATIONS: Aspirin 81 mg p.o. daily, Coreg 3.125 mg p.o. b.i.d., Plavix 75 mg p.o. daily , ferrous sulfate 325 mg p.o. daily, Mucinex 600 mg twice daily for 7 days, Imdur 30 mg p.o. daily, L evaquin 500 mg p.o. daily for 7 days, lisinopril 2.5 mg p.o. b.i.d., magnesium 400 mg p.o. daily, met formin ER 500 mg p.o. daily, Protonix 40 mg p.o. daily, Florastor 250 mg p.o. daily for 7 days, Zocor 40 mg p.o. at bedtime. CONTRAINDICATIONS: None. CODE STATUS: FULL CODE. INPATIENT CONSULTANTS: Dr. Grover was following while in hospital for a non-STEMI and he recommended medical therapy. Dr. Jay was following for pneumonia and respiratory failure. TEST RESULTS PENDING ON DISCHARGE: None. ALLERGIES: No known drug allergy. DISCHARGE PLAN: Post hospital, the patient will follow up with primary care physician, the patient w ill follow up with cardiac rehabilitation. The patient is also instructed to follow with primary car diologist, Dr. Oliva. HOSPITAL COURSE: A 72-year-old female who was admitted by me on 07/18/2017. Please see my HPI for f urther details. The patient was admitted for increasing shortness of breath. She was also having co ugh productive of yellowish sputum and fever with chills. In the emergency room, she had chest x-ray which showed pulmonary vascular congestion as well as bibasilar pneumonia. She was hypoxic on arriv al, she required IMCU admission. She also had significantly abnormal troponin and that is why we adm itted on ICU. Cardiology and Pulmonary group saw this patient. Cardiology group recommended only co nservative therapy. Regarding pneumonia, patient was treated with Rocephin and levofloxacin while in hospital. On discharge, we changed to p.o. levofloxacin for another 7 days. Her chest x-ray is imp roving. She is afebrile while in hospital. Regarding congestive heart failure, we did echocardiography and found with systolic and diastolic dys function. She was treated with IV Lasix with significant improvement by the time of discharge. Upon stabilization, the patient was transferred to telemetry floor where we started physical therapy and adjusted her cardiac medications. Cardiopulmonary group cleared her for discharge. On the day of discharge, we prescribed IV iron ther apy. Her repeat chest x-ray also showed improvement in CHF as well as pneumonia. At this point, there is no plan for any further intervention and patient will follow up with her card iologist at [facility]. The patient will follow with primary care physician. The patient is seen and examined at bedside today. We are arranging home health today. PHYSICAL EXAMINATION: VITAL SIGNS: Currently, temperature 98.0, pulse 98, respiratory rate 16, saturation 94% on 2 liters, blood pressure 130/60. Weight 120 pounds. GENERAL: The patient is currently alert, awake, no acute distress. Hard of hearing. HEAD: Normocephalic, atraumatic. EYES: Pupils are round and reactive to light. Extraocular muscles are intact. ENT: Oropharynx within normal limits. Moist mucous membranes. No oral lesions. No pharyngeal eryt fabiola. No exudate. NECK: Supple. No JVD, no thyromegaly, no carotid bruit. LUNGS: Clear without any rhonchi or rales. CARDIAC: S1 and S2 regular without any murmur. ABDOMEN: Soft and benign. NEUROLOGIC: Nonfocal examination. All new medication prescription sent to her pharmacy. Patient is otherwise medically stable for disc harge today.
[2017-07-23] MEDS: cefTRIAXone\\ROCEPHIN 1 GM, Syringe 0.4 ML in Sterile Water 9.6 ML SLOW IVP SCH (16:38)
[2017-07-23 16:45] VITALS: BP 155/67; TEMP 98
--- NOTE | 2017-07-23 19:18 | PRG ---
DATE OF SERVICE: 07/23/2017 SERVICE: Pulmonary Medicine. INTERVAL HISTORY: The patient is doing great from a respiratory standpoint. She has no specific com plaints of nausea, vomiting or chest discomfort. Otherwise, she has returned to her usual state of h ealth. PHYSICAL EXAMINATION: VITAL SIGNS: Afebrile, pulse 85, blood pressure 155/67, respirations 16 and saturation 97% on room a ir. GENERAL: The patient is awake and alert, in no apparent distress. HEART: Normal rate and regular. ABDOMEN: Soft, nontender and nondistended. Bowel sounds are positive. MUSCULOSKELETAL: No cyanosis or clubbing. There is trace 1+ pitting in the bilateral lower extremit ies. GENITOURINARY: No Cyr. NEUROLOGIC: Grossly nonfocal. LABORATORY DATA: WBC 4.0, hemoglobin 8.9, platelets 138,000 and stabilizing. Basic metabolic profil e is unremarkable. IMAGING DATA: Chest x-ray demonstrates improving findings of congestive heart failure with persisten t small bilateral pleural effusions. Previous sternotomy is evident. ASSESSMENT: 1. Acute hypoxic respiratory failure, stable. 2. Community-acquired pneumonia, possible. 3. Non-ST elevation myocardial infarction. 4. Acute on chronic systolic heart failure. 5. Coronary artery disease. 6. Atrial fibrillation, paroxysmal. 7. Type 2 diabetes mellitus. PLAN: Complete antibiotics to finish a 7-day course. Repeat an x-ray in 2-4 weeks in order to prove that the pleural effusions are improving. The infiltrate has resolved at this time. Pulmonary Crit ical Care will continue to follow if she remains in house, but from my perspective, she is stable for transition out.
--- NOTE | 2017-08-20 11:37 | EKG ---
Test Reason : SHORTNESS OF BREATH Blood Pressure : / mmHG Vent. Rate : 063 BPM Atrial Rate : 063 BPM P-R Int : 122 ms QRS Dur : 090 ms QT Int : 458 ms P-R-T Axes : 048 023 223 degrees QTc Int : 468 ms Normal sinus rhythm Possible Left atrial enlargement Left ventricular hypertrophy with repolarization abnormality Abnormal ECG Baseline Artifact Present Confirmed by ROSETTE CABRERA, ROWDY Azul ([id number]), acquisitions editor AMRITA MOON ([id number]) on 08/20/2017 11:37:01 AM Referred By: DR DINERO Confirmed By:ROWDY DINERO MD
--- NOTE | 2017-08-20 11:39 | EKG ---
Test Reason : Blood Pressure : / mmHG Vent. Rate : 066 BPM Atrial Rate : 066 BPM P-R Int : 134 ms QRS Dur : 090 ms QT Int : 468 ms P-R-T Axes : 052 019 224 degrees QTc Int : 490 ms Normal sinus rhythm Possible Left atrial enlargement Left ventricular hypertrophy with repolarization abnormality Prolonged QT Abnormal ECG ST/T abnormality V1 - V6 #2 Confirmed by ROSETTE CABRERA, ROWDY Azul ([id number]), editorial specialist AMRITA MOON ([id number]) on 08/20/2017 11:38:32 AM Referred By: DR DINERO Confirmed By:ROWDY DINERO MD
== END 2017-07-23 17:07 | disposition home health service (06) | DRG 280 ==
LOC: ERS 09:30 → IMCU/EMU 14:19 → 2NO 07-19 17:53
PROVIDERS: ADMIT Internal Medicine; ATTEND Internal Medicine
DX: I21.4 Non-ST elevation (NSTEMI) myocardial infarction (principal); J96.01 Acute respiratory failure with hypoxia; I50.23 Acute on chronic systolic (congestive) heart failure; J15.9 Unspecified bacterial pneumonia; D69.6 Thrombocytopenia, unspecified; E87.1 Hypo-osmolality and hyponatremia; I13.0 Hypertensive heart and chronic kidney disease with heart failure and stage 1 through stage 4 chronic kidney disease, or unspecified chronic kidney disease; H90.5 Unspecified sensorineural hearing loss; J44.0 Chronic obstructive pulmonary disease with (acute) lower respiratory infection; E87.70 Fluid overload, unspecified; I48.0 Paroxysmal atrial fibrillation; E83.42 Hypomagnesemia; N18.3 Chronic kidney disease, stage 3 (moderate); E11.9 Type 2 diabetes mellitus without complications; D50.9 Iron deficiency anemia, unspecified; I25.10 Atherosclerotic heart disease of native coronary artery without angina pectoris; K21.9 Gastro-esophageal reflux disease without esophagitis; I73.9 Peripheral vascular disease, unspecified; E78.00 Pure hypercholesterolemia, unspecified; E87.6 Hypokalemia; M19.90 Unspecified osteoarthritis, unspecified site; Z95.1 Presence of aortocoronary bypass graft; Z95.5 Presence of coronary angioplasty implant and graft
CPT/HCPCS: 36415; 36416; 51702; 71010; 80048; 80053; 80061; 81001; 82550; 82553; 82728; 83540; 83550; 83735; 83880; 84484; 84550; 85025; 85610; 85730; 93005; 93306; 93798; 94640; 94760; 96372; 96374; 96375; A4216; J0696; J1644; J1650; J1750; J1940; J1956; J3475; J7050; J7620

== ENCOUNTER 2019-02-16 21:08 | Inpatient (IN) | payer MEDICARE, MEDICAID ==
[2019-02-16] MEDS ORDERED: Nitroglycerin 50 MG/250 ML BOT 250 ML ONE (21:18)
[2019-02-16] MEDS ORDERED: Nitroglycerin 2% Ointment 1 INCH/1 GM Packet ONE (21:18)
--- NOTE | 2019-02-16 21:30 | RAD ---
EXAM: Single view of the chest HISTORY: Shortness of breath COMPARISON: None FINDINGS: Single view of the chest shows an enlarged cardiomediastinal silhouette. Atherosclerotic c alcifications are seen in the aorta. The patient is status post sternotomy. Diffuse increased interstitial lung markings are seen. There is no evidence of consolidation, mass, or pleural effusio n. The bones are unremarkable. IMPRESSION: Chronic interstitial lung disease without acute process.
[2019-02-16 22:01] LABS: #Eosinphils 0.2 thou/uL (0.0-0.7); #Lymphocytes 2.4 thou/uL (1.20-3.40); #Monocytes 0.3 thou/uL (0.11-0.59); #Neutrophils 4.2 thou/uL (1.40-6.50); %Basophils 0.5 % (0.0-1.0); %Eosinophils 2.4 % (0.0-10.0); %Monocytes 3.9 % (0.0-10.0); %Neutrophils 59.3 % (42.0-75.0); Mean Corpuscular Hemoglobin 32.3 pg (27.0-31.0); Mean Corpuscular Volume 94.9 fL (78.0-98.0); Mean Platelet Volume 9.8 fL (7.4-10.4); Platelet Count 153 thou/uL (130-400); RBC Distribution Width 10.6 % (11.5-14.5); Red Blood Cell (RBC) Count 4.63 mill/uL (4.20-5.40); White Blood Cell (WBC) Count 7.2 thou/uL (4.8-10.8)
[2019-02-16 22:33] LABS: ALT (SGPT) 56 U/L (8-55); AST (SGOT) 33 U/L (5-34); Albumin 4.5 g/dL (3.4-4.8); Alkaline Phosphatase 69 U/L (40-150); Anion Gap 18 mmol/L (10-20); BUN (Urea Nitrogen) 14 mg/dL (9.8-20.1); Bilirubin, Total 1.8 mg/dL (0.2-1.2); Calc. Creatinine Clearance 0 mL/min (70-130); Calcium 9.6 mg/dL (7.8-10.44); Carbon Dioxide 21 mmol/L (23-31); Chloride 101 mmol/L (98-107); Estimated GFR-MDRD 38; Globulin 2.8 g/dL (2.4-3.5); Glucose 145 mg/dL (83-110); Magnesium 1.7 mg/dL (1.6-2.6); Potassium 4.4 mmol/L (3.5-5.1); Protein, Total 7.3 g/dL (6.0-8.3); Sodium 136 mmol/L (136-145)
[2019-02-16 22:50] LABS: CKMB 2.5 ng/mL (0-6.6)
[2019-02-16] MEDS ORDERED: Furosemide 20 MG/2 ML VIAL ONE (22:50)
[2019-02-16] MEDS ORDERED: Furosemide 40 MG/4 ML VIAL ONE (22:50)
[2019-02-17] MEDS ORDERED: Enoxaparin Sodium 30 MG/0.3 ML SYRINGE SC SCH (00:15)
[2019-02-17 00:42] LABS: Bilirubin Negative (Negative); Blood, Urine Negative (Negative); Clarity CLEAR (Clear); Glucose, Urine (Dipstick) Negative (Negative); Leukocyte Trace (Negative); Nitrite Negative (Negative); Protein, Urine (Dipstick) Trace mg/dL (Neg-Trace); Urobilinogen 0.2 mg/dL (0.2-1.0)
[2019-02-17 00:46] LABS: Bacteria/HPF None Seen HPF (None Seen); Hyaline Casts/LPF 4-6 HYALINE CAST LPF (0-3 Hyaline); Pathc Cast-AUWi Flag 0.54 (0-2.49); Squamous Epithelial 0-3 HPF (0-3); WBC/HPF 0-3 HPF (0-3)
[2019-02-17 01:03] LABS: Troponin I 0.516 ng/mL (< 0.028)
[2019-02-17] MEDS ORDERED: Nitroglycerin 50 MG/250 ML BOT 250 ML IVPB SCH (01:30)
[2019-02-17 01:44] VITALS: BMI 21.2
[2019-02-17 03:59] LABS: #Eosinphils 0.1 thou/uL (0.0-0.7); #Lymphocytes 0.7 thou/uL (1.20-3.40); #Monocytes 0.3 thou/uL (0.11-0.59); #Neutrophils 5.3 thou/uL (1.40-6.50); %Basophils 0.1 % (0.0-1.0); %Eosinophils 0.9 % (0.0-10.0); %Lymphocytes 10.4 % (21.0-51.0); %Neutrophils 83.6 % (42.0-75.0); Hemoglobin 13.8 g/dL (12.0-16.0); Mean Corpuscular HGB CONC 34.6 g/dL (32.0-36.0); Mean Corpuscular Hemoglobin 32.9 pg (27.0-31.0); Mean Platelet Volume 9.2 fL (7.4-10.4); Platelet Count 99 thou/uL (130-400); RBC Distribution Width 10.6 % (11.5-14.5); White Blood Cell (WBC) Count 6.3 thou/uL (4.8-10.8)
[2019-02-17 04:20] LABS: Anion Gap 17 mmol/L (10-20); BUN (Urea Nitrogen) 18 mg/dL (9.8-20.1); Calc. Creatinine Clearance 35 mL/min (70-130); Calcium 9.9 mg/dL (7.8-10.44); Carbon Dioxide 21 mmol/L (23-31); Chloride 102 mmol/L (98-107); Estimated GFR-MDRD 47; Glucose 139 mg/dL (83-110); Potassium 3.7 mmol/L (3.5-5.1); Sodium 136 mmol/L (136-145)
[2019-02-17 04:29] LABS: Troponin I 0.901 ng/mL (< 0.028)
--- NOTE | 2019-02-17 05:21 | HP ---
CHIEF COMPLAINT: Shortness of breath. HISTORY OF PRESENT ILLNESS: This patient is a 73-year-old female, who has a history of coronary artery disease and COPD, who presented to the emergency department with abrupt onset of shortness of breath. The patient apparently was with her family. She received some bad news, the nature of which is unclear, but may have distressed the patient. She had the abrupt onset of shortness of breath. The patient's family is not present to help corroborate story and the patient is having some difficulty with conversation due to wearing the BiPAP mask and being profoundly hard of hearing. She seems to indicate that she is feeling somewhat better presently. REVIEW OF SYSTEMS: Really could not be obtained because of the patient's dyspnea and requirement for the BiPAP and inability to speak much. PAST MEDICAL HISTORY: As noted, significant for coronary artery disease, hypertension, diabetes, sensorineural deafness, dyslipidemia, degenerative joint disease, history of carotid stenosis, COPD. PAST SURGICAL HISTORY: CABG x3, heart catheterization with stents, tubal ligation, carotid endarterectomies. FAMILY HISTORY: No premature heart disease, stroke, or cancer. SOCIAL HISTORY: The patient is a nonsmoker, nondrinker, and nondrug user. She is . Per the records, she has no family present. She will remain full code until the family can be reached or the patient can communicate more effectively. ALLERGIES: NONE. HOME MEDICATIONS: Not known presently. It appears from pharmacy records that she recently has filled: 1. Lisinopril 2.5 mg daily. 2. Carvedilol 3.125 mg one p.o. b.i.d. 3. Metformin 500 mg b.i.d. 4. Plavix 75 mg daily. 5. Pantoprazole 40 mg daily. 6. Simvastatin 40 mg daily. PHYSICAL EXAMINATION: VITAL SIGNS: Temperature was 96.7, pulse 92, respirations 21, on BiPAP, BP 151/72. GENERAL APPEARANCE: Age-appropriate female. She is resting in the emergency room gurrandall with BiPAP on. She has some tachypnea and some difficulty speaking through the BiPAP. Otherwise, she is awake and alert and pleasant in attempting to be as cooperative as possible. HEENT: Pupils are reactive. HEART: Regular rate and rhythm. LUNGS: Diminished bilaterally without significant wheezes or rales. ABDOMEN: Soft, nontender, and nondistended. Positive bowel sounds. No masses. No organomegaly. EXTREMITIES: No cyanosis, clubbing, or edema. PSYCH: The patient appears to be cognitively intact. She has no gross focal deficits. LABORATORY DATA: White count 7.2, hemoglobin 15, platelets 153. Sodium 136, potassium 4.4, chloride 101, CO2 21, BUN 14, creatinine is 1.35, glucose 145, calcium 9.6, magnesium 1.7, total bilirubin 1.8. Troponin 0.064. BNP 1079. Chest x-ray reportedly shows chronic interstitial lung disease with no acute process; however, those findings were not present by my review in 2017, it appears to potentially be some new pulmonary edema. EKG shows some sinus tachycardia. IMPRESSION AND PLAN: 1. Acute hypoxic respiratory failure, appears to be secondary to some pulmonary edema, can also have some component of chronic obstructive pulmonary disease. We will continue with the BiPAP. The patient has received significant dose of diuresis in the emergency department. We will see how she responds with that. Add DuoNeb as well. 2. Acute kidney injury. The patient's normal GFR appeared to be better, though presently could not access additional numbers through the EHR. Again, the patient has received some diuresis, and this may be some cardiorenal syndrome. 3. Diabetes mellitus. We will try to resume her home medications once her renal functions are improved. We will monitor with Accu-Cheks and cover with sliding scale if needed. 4. Elevated troponin, possibly due to decompensated heart failure. We will keep on telemetry and continue to trend. 5. Apparent decompensated heart failure. Again, the patient has received significant dose of diuretic in the emergency department. We will continue to monitor her response to that. Continue with Coreg and lisinopril. Job ID: [id number]
[2019-02-17] MEDS: Carvedilol 3.125 MG TAB PO SCH ×2 (08:25→16:17)
[2019-02-17] MEDS: Clopidogrel Bisulfate 75 MG TAB PO SCH (08:25)
[2019-02-17] MEDS ORDERED: Famotidine 20 MG TAB PO SCH (09:00)
[2019-02-17] MEDS ORDERED: Aspirin Chewable 81 MG TAB PO SCH (09:00)
[2019-02-17] MEDS ORDERED: Nitroglycerin 2% Ointment 1 INCH/1 GM Packet TOP SCH (09:00)
[2019-02-17] MEDS ORDERED: Furosemide 20 MG/2 ML VIAL SLOW IVP SCH ×2 (11:00→16:00)
[2019-02-17] MEDS ORDERED: Potassium Chloride 20 MEQ TAB PO SCH (11:15)
--- NOTE | 2019-02-17 12:57 | CON ---
DATE OF CONSULTATION: 02/17/2019 REASON FOR CONSULTATION: Congestive heart failure, pulmonary edema. PRIMARY MEMBER OF CONGRESS: Dr. Petey Oliva. HISTORY OF PRESENT ILLNESS: Ms. Jackson states that she was doing okay until yesterday evening when she became short of breath. A lot of this history is obtained through the chart as she is extremely hard of hearing and really cannot tell me what she was feeling at that time. The patient has a history of COPD and coronary artery disease. She abruptly became short of breath and she was with her family. She was found to have some element of congestive heart failure. She was given BiPAP. She gets some Lasix and improved and states her breathing is normal now. Denies chest pain or pressure. REVIEW OF SYSTEMS: Really it is not accurate because she is so hard of hearing. She cannot understand a lot of the discussion, but she states that she was previously short of breath, but she has not now. She states she has not had chest pain. PAST MEDICAL HISTORY: She has a history of severe coronary artery disease. The patient was seen here in 2017 with an episode of congestive heart failure and non-ST elevation infarction. We were able to get some old records and found that Dr. Oliva had done a cardiac catheterization in 2002 and then subsequently underwent bypass surgery. She had three vessel coronary artery disease. The vessels were small targets. Surgery was done after a myocardial infarction. She also had a left subclavian stenosis. The surgery was a free internal mammary to the LAD, saphenous vein graft to the diagonal, saphenous vein graft to the obtuse marginal, saphenous vein graft to the right coronary artery. The mammary was placed on the obtuse marginal is a piggyback, although from reading the note, it is possible the free mammary was done on the saphenous vein graft to the diagonal. The patient was noted at the time of surgery she should not be re-operated on due to diffuse plaque and diffuse disease with distal anastomotic lesions. The patient has been followed by Dr. Oliva. The patient is unable to tell me when she was seen last or what has been done, we have requested records. She does report that she has some blockage in her leg arteries. MEDICATIONS: Prior to admission: 1. Aspirin. 2. Plavix. 3. Imdur 30 mg a day. 4. Carvedilol 3.125 mg twice a day. 5. Simvastatin 40 mg a day. 6. Metformin. 7. Pantoprazole. 8. Iron. 9. Lisinopril 2.5 mg twice a day. ALLERGIES: NONE KNOWN. SOCIAL HISTORY: No tobacco. PHYSICAL EXAMINATION: GENERAL: This is a frail-appearing elderly woman. VITAL SIGNS: She is 5 feet 1 inch tall, 112 pounds. Blood pressure is now 112 systolic, pulse 70 and it is sinus on the monitor. HEENT: Eyes; sclerae nonicteric. Mouth, mucous membranes moist. NECK: Supple. No lymphadenopathy. LUNGS: Clear anteriorly, posteriorly. There are still a few rales in the bases. CARDIAC: Normal S1, normal S2. I do not hear murmur, rub, or gallop. ABDOMEN: Soft, nontender. EXTREMITIES: Warm and dry. No clubbing or cyanosis. There is no edema. PERIPHERAL PULSES: I do feel femoral pulses bilaterally, the left stronger than the right. I feel a popliteal pulse on the left. I feel a posterior tibial pulse on the left. I do not feel dorsalis pedis on the left. On the right side, I do not feel pedal pulses and questionable popliteal. IMAGING STUDIES: EKG; sinus rhythm, some prolongation of the QT interval, some nonspecific ST changes. PERTINENT LABORATORY DATA: Troponin level of 0.9, peak. The patient had a much higher troponin level in 2017, the peak at that point was 6.1. Chest x-ray also shows pulmonary edema. ASSESSMENT: 1. Pulmonary edema, likely related to underlying left ventricular dysfunction and superimposed ischemia. 2. History of bypass surgery with diffuse atherosclerosis. 3. Peripheral vascular disease. 4. Non-ST elevation myocardial infarction, clinically improved. PLAN: 1. She is on aspirin. 2. Plavix. 3. Give additional furosemide. 4. Repeat EKG tomorrow. 5. Requested old records to see what the plan has been and whether the patient has ever undergone repeat catheterization. She has been getting her cardiac care through Dr. Oliva, so we have requested these records. Job ID: [id number]
--- NOTE | 2019-02-17 13:00 | CON ---
DATE OF CONSULTATION: SERVICE: Pulmonary Medicine. REASON FOR CONSULTATION: ICU patient. HISTORY OF PRESENT ILLNESS: The patient is a 73-year-old white female with past medical history significant for diastolic heart failure. She was visiting her sister when she started having increasing shortness of breath. This was associated with very elevated blood pressures. She went to flash pulmonary edema. She was placed on BiPAP, and tucked into the ICU. Shortly after arriving here, the BiPAP was interrupted. She is rapidly deescalated on her oxygen down to room air. She denies any current fevers, chills, nausea, or vomiting. Before this event occurred, she was essentially in her usual state of health. She has no complaints. Overnight, she did very well, and slept comfortably. PAST MEDICAL HISTORY: 1. Coronary artery disease. 2. Hypertension. 3. Dyslipidemia. 4. Type 2 diabetes mellitus. 5. Deafness. 6. Degenerative joint disease. 7. COPD. 8. Carotid arterial disease. PAST SURGICAL HISTORY: 1. Coronary artery bypass graft x3 vessels. 2. Percutaneous coronary interventions with multiple stent placements. 3. Tubal ligation. 4. Carotid endarterectomy, bilateral. FAMILY HISTORY: Noncontributory. SOCIAL HISTORY: She does not currently use alcohol, tobacco, or illicit drugs. She has no exposure to chemicals, dust, asbestos, or tuberculosis. ALLERGIES: NO KNOWN DRUG ALLERGIES. MEDICATIONS: List of inpatient medications was reviewed. I discontinued the nitroglycerin, and gave her couple doses of Lasix. REVIEW OF SYSTEMS: General; head, ears, eyes, nose, and throat; cardiovascular; respiratory; GI; ; musculoskeletal; neurologic; and skin are negative except as mentioned in the HPI. PHYSICAL EXAMINATION: VITAL SIGNS: Afebrile, pulse 72, blood pressure 113/63, respirations 28, saturation 100% on room air currently. GENERAL: The patient is awake and alert, in no apparent distress. LUNGS: Very good air entry. Dependent crackles are present bilaterally. There is minimally prolonged expiratory phase, but I do not hear any rhonchi or wheezing. HEART: Normal rate, regular. ABDOMEN: Soft, nontender, nondistended. Bowel sounds are positive. MUSCULOSKELETAL: No cyanosis or clubbing. No pitting in the bilateral lower extremities. NEUROLOGIC: Grossly nonfocal. LABORATORY DATA: Urinalysis is unremarkable. Creatinine is downtrending to 1.13. Basic metabolic profile is otherwise unremarkable. Troponin is up trending gently to 0.9. BNP 1000. Liver function studies are essentially unremarkable except for minimal elevation of the ALT. Total bilirubin 1.8. CBC is essentially unremarkable with a differential that is normal. IMAGING STUDIES: Chest x-ray demonstrates hyperexpanded bilateral lung snell. She has Koki B lines and fluid in the fissure. She has a right-sided small effusion. Cardiac silhouette is generous for the size of her lungs. The carinal angle is enlarged, suggestive of left atrial dilation. ASSESSMENT: 1. Acute hypoxic respiratory failure, resolved. 2. Hypertensive emergency. 3. Acute on chronic systolic and diastolic heart failure. 4. Atrial fibrillation, paroxysmal. DISCUSSION AND PLAN: The patient's hemodynamics are perfectly stable. On room air, her saturations ranged between 97% and 100%. As such, she is stable for transition out of the ICU to the telemetry floor. I will interrupt the nitroglycerin paste , and give her couple doses of Lasix to see if we can offload her further. At this point, she has no inpatient requirements for Pulmonary or Critical Care opinion , and I will sign off when she leaves the ICU. 70 minutes have been devoted to this patient in various activities. I personally reviewed all imaging studies and laboratory data noted within this document. For fifty percent of this time, I was interacting with the patient at the bedside or coordinating care with the care team. For the remainder of the time I was immediately available to the patient in the hospital unit. Job ID: [id number] MTDD
[2019-02-17] MEDS ORDERED: Lisinopril 2.5 MG TAB PO SCH (16:15)
[2019-02-17] MEDS: Atorvastatin Calcium 20 MG TAB PO SCH (20:59)
[2019-02-17] MEDS: Lisinopril 2.5 MG TAB PO SCH (20:59)
[2019-02-17] MEDS: Acetaminophen 325 MG TAB PO PRN (22:24)
[2019-02-18 07:00] LABS: Anion Gap 15 mmol/L (10-20); BUN (Urea Nitrogen) 21 mg/dL (9.8-20.1); Calc. Creatinine Clearance 35 mL/min (70-130); Calcium 9.7 mg/dL (7.8-10.44); Carbon Dioxide 23 mmol/L (23-31); Chloride 99 mmol/L (98-107); Estimated GFR-MDRD 53; Glucose 95 mg/dL (83-110); Magnesium 1.7 mg/dL (1.6-2.6); Potassium 4.3 mmol/L (3.5-5.1); Sodium 133 mmol/L (136-145)
[2019-02-18] MEDS ORDERED: Furosemide 20 MG/2 ML VIAL SLOW IVP SCH (09:00)
[2019-02-18] MEDS: Lisinopril 2.5 MG TAB PO SCH ×2 (09:04→21:03)
[2019-02-18] MEDS: Carvedilol 3.125 MG TAB PO SCH ×2 (09:05→16:46)
[2019-02-18] MEDS: Clopidogrel Bisulfate 75 MG TAB PO SCH (09:05)
--- NOTE | 2019-02-18 09:32 | PRG ---
DATE OF SERVICE: 02/18/2019 SUBJECTIVE: Ms. Jackson is awake and alert. She is not short of breath. She feels well. OBJECTIVE: VITAL SIGNS: Blood pressure 139/64, pulse is 78 and sinus. LUNGS: Clear. CARDIAC: Normal S1. Normal S2. ABDOMEN: Soft and nontender. EXTREMITIES: There is no edema. ASSESSMENT: 1. Previous coronary artery bypass grafting. 2. Congestive heart failure, acute, resolved, probably diastolic. Echo is pending. 3. Diffuse atherosclerosis. PLAN: Based on previous notes, still waiting records that have been requested from Dr. Oliva's office. The patient wishes to be released home. We told her we do not wish her to go home today. Still awaiting records to see whether further intervention may be considered or whether it has been done in the past. The patient is unable to tell me. Job ID: [id number]
--- NOTE | 2019-02-18 13:54 | PRG ---
DATE OF SERVICE: 02/18/2019 SERVICE: Pulmonary Medicine. INTERVAL HISTORY: The patient is doing fine from respiratory standpoint. Breathing comfortably. She has no complaints of chest pain, fevers, cough, nausea, or vomiting. She is having a little bit of GI discomfort. She is having some loose stools. Nothing characterized as diarrhea. She is not having any nausea or vomiting. That being said, she has a little bit of a lack of appetite. PHYSICAL EXAMINATION: VITAL SIGNS: Afebrile. Pulse 65, blood pressure 81/40, respirations 30, saturation 100% on room air. HEENT: Normocephalic, atraumatic. Sclerae white. Conjunctivae pink. Oral mucosa is moist without lesions. LUNGS: Decent air entry. No prolonged expiratory phase or wheezing present. HEART: Normal rate, regular. ABDOMEN: Soft, nontender, nondistended. Bowel sounds are positive. MUSCULOSKELETAL: No cyanosis or clubbing. No pitting in the bilateral lower extremities. NEUROLOGIC: Grossly nonfocal. LABORATORY DATA: Creatinine downtrending to 1.01. Magnesium 1.7. Basic metabolic profile is otherwise unremarkable. IMAGING DATA: Echocardiogram demonstrates reduced ejection fraction, moderately dilated left atrium, moderate mitral regurgitation. No pericardial effusion. ASSESSMENT: 1. Acute hypoxic respiratory failure, resolved. 2. Hypertensive emergency, resolved. 3. [id number]-os-inrwyol systolic and diastolic heart failure. 4. Mitral regurgitation, moderate. 5. Atrial fibrillation, paroxysmal. DISCUSSION AND PLAN: The patient is stable for transition out of the ICU to the telemetry unit. When she leaves the ICU, she will have no further requirements for inpatient Pulmonary or Critical Care opinion, and I will sign off. Please call with additional questions or concerns through time. Job ID: [id number]
--- NOTE | 2019-02-18 16:12 | PRG ---
DATE OF SERVICE: 02/18/2019 SUBJECTIVE: The patient is seen and examined at the bedside. She is doing better. She is sitting in the chair. During my visit, her shortness of breath improved. OBJECTIVE: VITAL SIGNS: Blood pressure is 130/92, pulse is 78, respiratory rate is 16, O2 saturation is significantly improved. HEENT: Her head is atraumatic and normocephalic. Sclerae are nonicteric. Oral mucosa is moist. NECK: Supple. LUNGS: Breath sounds diminished at both bases with bilateral crackles at both bases. HEART: S1, S2. Slightly irregular. No S3. No S4. ABDOMEN: Soft. Nontender. EXTREMITIES: No clubbing or cyanosis. There is maybe 1+ peripheral edema similar bilaterally. LABORATORY DATA: Labs showed a sodium of 133, potassium 4.3, chloride 99, CO2 of 23, BUN 21, creatinine 1.01. The rest of chemistry within normal limits. Second troponin came back at 0.901. Echocardiogram was done today and it showed LVEF diminished at 30% to 35%. with inferior wall and apex akinesis, normal right ventricular size and function, and moderate mitral regurgitation. IMPRESSION: 1. Acute hypoxic respiratory failure, resolved. 2. Paroxysmal atrial fibrillation. 3. Acute on chronic systolic and diastolic heart failure with LVEF of 30% to 35% on the recent echo. 4. Hypertensive urgency, resolved. 5. Mitral regurgitation. PLAN: Plan is to continue her current regimen with Coreg, Plavix, isosorbide, lisinopril, pantoprazole, and Lipitor, and she is going to be transferred to telemetry floor. In the meantime, we hope that we will get medical records from Dr. Oliva's office, and we will continue her Accu-Cheks before meals and at bedtime since she is diabetic. Job ID: [id number]
[2019-02-18] MEDS: Atorvastatin Calcium 20 MG TAB PO SCH (21:03)
[2019-02-19] MEDS: Acetaminophen 325 MG TAB PO PRN (02:43)
[2019-02-19] MEDS: Lisinopril 2.5 MG TAB PO SCH ×2 (09:36→21:27)
[2019-02-19] MEDS: Clopidogrel Bisulfate 75 MG TAB PO SCH (09:41)
[2019-02-19] MEDS: Carvedilol 3.125 MG TAB PO SCH ×2 (09:42→18:30)
--- NOTE | 2019-02-19 16:11 | PRG ---
DATE OF SERVICE: 02/19/2019 SUBJECTIVE: The patient is seen and examined at the bedside. She is doing significantly better. She is sitting in the chair during my visit. OBJECTIVE: VITAL SIGNS: Blood pressure is 130/54, pulse is 61, respiratory rate is 27, O2 saturation is 100%. HEENT: Head is atraumatic and normocephalic. Eyes are PERRLA. Sclerae nonicteric. Oral mucosa is moist. NECK: Supple. LUNGS: Breath sounds diminished at both bases with few crackles bilaterally at both bases. HEART: S1 and S2 normal. No S3. No S4. ABDOMEN: Soft, nontender. Bowel sounds are present. No organomegaly. EXTREMITIES: No clubbing, cyanosis, or edema. NEUROLOGICAL: She follows my commands. She moves her all 4 extremities. LABORATORY DATA: Labs showed sodium of 133, potassium 4.3, chloride 99, CO2 of 23, BUN 21, creatinine 1.01. The rest of chemistry within normal limits. IMPRESSION: 1. Acute hypoxic respiratory failure, resolved. 2. Paroxysmal atrial fibrillation. 3. Acute on chronic systolic and diastolic heart failure with LVEF of 30% to 35% on recent echo. 4. Hypertensive urgency, resolved. 5. Mitral regurgitation. PLAN: We will continue current regimen with Coreg, Plavix, isosorbide, lisinopril, pantoprazole, and Lipitor. She will be transferred to telemetry and Cardiology to make decision about her disposition soon. Job ID: [id number]
[2019-02-19] MEDS: Atorvastatin Calcium 20 MG TAB PO SCH (21:29)
[2019-02-20] MEDS: Clopidogrel Bisulfate 75 MG TAB PO SCH (09:40)
[2019-02-20] MEDS: Aspirin 81 mg Enteric Coated Tablet PO SCH (09:40)
[2019-02-20] MEDS: Lisinopril 2.5 MG TAB PO SCH (09:40)
[2019-02-20] MEDS: Carvedilol 3.125 MG TAB PO SCH ×2 (09:41→15:47)
--- NOTE | 2019-02-20 10:43 | PRG ---
DATE OF SERVICE: 02/18/2019 ADDENDUM: I did receive records from Dr. Oliva's office. The patient does have a history of carotid arterial disease with previous carotid artery stenting, also peripheral disease and coronary artery disease that she has been followed routinely with Dr. Oliva's office. The patient is extremely hard of hearing, and it is unclear how much she understands her current situation. The most recent ejection fraction is now diminished, it is done here on this admission and ejection fraction 30% to 35%. ASSESSMENT: 1. The patient has suffered a ycg-WN-vezmuahbw myocardial infarction. 2. Previous awn-YV-frqqszunk infarction in June 2017. 3. She has had previous bypass surgery. The previous note indicates she has distal disease, not a reoperative candidate. PLAN: 1. Continue current medical regimen. 2. No family here to discuss the options. At some point, catheterization could be considered. It is unclear whether the patient wishes to have this done. She is extremely hard of hearing. It is difficult to communicate with her. She may wish to be discharged to follow up with Dr. Oliva. I will be glad to do whatever she wishes to do. At some point, consideration for catheterization could be given to see if any other intervention would improve her prognosis. In addition, consideration for defibrillator implantation could be given as the ejection fraction is now below 35%. Job ID: [id number]
--- NOTE | 2019-02-20 11:07 | PQF ---
CLINICAL DOCUMENTATION IMPROVEMENT CLARIFICATION FORM: ICD-10 Updated PLEASE DO AN ADDENDUM TO THE PROGRESS NOTE WITH ANY DOCUMENTATION UPDATES OR ADDITIONS AND CARRY THROUGH TO DC SUMMARY. THANK YOU. DATE: 02/20/19 ATTN: DR. TYSON Please exercise your independent, professional judgment in responding to the clarification form. Clinical indicators are provided on the bottom of this form for your review Please check appropriate box(s) to clarify if the following diagnosis has been ruled in or ruled out: "NSTEMI" [ x] Ruled in diagnosis [ ] Continue to treat [ x] Resolved [ ] Ruled out diagnosis [ ] Cannot rule out diagnosis [ ] Other diagnosis [ ] Unable to determine In addition, please specify: Present on Admission (POA): [ x] Yes [ ] No [ ] Unable to determine For continuity of documentation, please document condition throughout progress notes and discharge summary. Thank You. CLINICAL INDICATORS - SIGNS / SYMPTOMS / LABS PROGRESS NOTE 02/17 (SHANI): "NON-ST ELEVATION MYOCARDIAL INFARCTION, CLINICALLY IMPROVED" TROPONINS 0.516 / 0.901 RISKS: CAD CHF HTN TREATMENT; IV NITROGLYCERIN (ER) NITRO-BID TRANSDERMAL (ER) ECOTRIN (02/20) PLAVIX (02/17-PRESENT) IMDUR (02/18-PRESENT) CARDIOLOGY CONSULT TELEMETRY MONITORING (This form is maintained as a part of the permanent medical record) SAP Multiplex Operator [employer] Winform Viewer 2015 [employer]. All Rights Reserved ANTONIO [email or web address] Office: [phone] [facility]
[2019-02-20] MEDS ORDERED: Lisinopril 10 MG TAB PO SCH (13:30)
--- NOTE | 2019-02-20 13:56 | PRG ---
DATE OF SERVICE: 02/20/2019 SUBJECTIVE: Ms. Jackson is doing well today. She wishes to go home. She has no chest pain or pressure. Overall, she feels well. OBJECTIVE: VITAL SIGNS: Her blood pressure earlier was 137/58, but a followup blood pressure was much higher. Please see nurse's note. It has not been charted yet, but it was 170 systolic. Pulse is 80. LUNGS: Clear. CARDIAC: Normal S1, normal S2. ABDOMEN: Soft and nontender. ASSESSMENT: 1. Congestive heart failure, systolic, acute on chronic, improved. Now, clinically not in heart failure. 2. Status post flx-TP-gpfncpaax myocardial infarction with peak troponin 0.9. 3. Hypertension, somewhat labile. 4. Previous bypass surgery. The previous notes indicate that she is not a reoperative candidate. 5. Extreme hearing loss. PLAN: She is on: 1. Lisinopril. We will increase dose to 10 mg a day. 2. Aspirin. 3. Clopidogrel. 4. Coreg 3.125 mg twice a day. She will continue statins. I discussed with the patient about the plan. She said she wishes to follow up with Dr. Oliva to further discuss options. The patient unfortunately is extremely hard of hearing. I tried to explain to her that she may need repeat catheterization, but she said she wants to talk to Dr. Oliva. I told her she needs to be seen next week for further evaluation. The ejection fraction is 30% to 35%; therefore, some consideration should be given to cardiac catheterization and possible defibrillator implantation if she wishes to have that done. The patient as mentioned mentions again that she wishes to be released home and she wishes to follow up and discuss with Dr. Oliva. Job ID: [id number]
[2019-02-20] MEDS ORDERED: hydrALAZINE 20 MG/ML VIAL SLOW IVP PRN (18:44)
--- NOTE | 2019-02-20 18:52 | DIS ---
DATE OF ADMISSION: 02/17/2019 DATE OF DISCHARGE: 02/20/2019 FINAL DIAGNOSES: 1. Congestive heart failure, systolic, acute on chronic, improved. 2. Status post non-ST elevation myocardial infarction with peak troponin of 0.9. 3. Hypertension. 4. History of coronary artery bypass graft. 5. Hypertensive urgency, resolved. 6. Paroxysmal atrial fibrillation. 7. Mitral regurgitation. CONSULTANTS: 1. Dr. Grover, Cardiology Service. 2. Dr. Jay for Pulmonary evaluation. HOSPITAL COURSE: The patient is a 73-year-old female with history of coronary artery disease and COPD, who had abrupt onset of shortness of breath. The patient came to the emergency room for further evaluation. She was started on BiPAP for her presumed CHF exacerbation. At the time of evaluation in the emergency room, her white count was 7.2, hemoglobin 15, and platelet count was 153. Sodium 136, potassium 4.4, chloride 101, CO2 of 21, BUN 14, creatinine 1.35. BNP was 1078. Troponin 0.064. Chest x-ray showed chronic interstitial lung disease with no acute process, however, there were findings, and it appeared to have some new pulmonary edema. Echocardiogram showed sinus tachycardia. The patient got admitted, continued on BiPAP and DuoNebs, and started on diuretics in the emergency room which was continued. Also, her Coreg and lisinopril were continued. She improved quickly. Subsequently, she was seen by steam conditioner operator and by Dr. Jay for Pulmonary evaluation. Recommendation was to continue her diuresis. Forming Fixer was considering to do cardiac catheterization on her once she stabilized. Echocardiogram was done and it showed LVEF estimated at 30% to 35%, and there was some inferior wall and apex akinesis. Her left ventricular size was mildly increased and she had moderate mitral regurgitation. We tried to contact the family, but there was no any response from 2 phone numbers we were given and we left the messages. The patient improved to the point that she is off oxygen. She wants to go home. She wants to go back to her primary steam conditioner operator, Dr. Oliva. We got medical records from his office. Forming Fixer, Dr. Grover, felt that this is reasonable to talk to Dr. Oliva about her options at this point. He recommends cardiac catheterization. Today, she is doing well. Her blood pressure is 137/58, pulse is 80, she is afebrile. She is seen and evaluated before she is discharged. DISCHARGE MEDICATIONS: 1. Lisinopril 10 mg once a day. 2. Metformin 500 mg once a day. 3. Zocor 40 mg at bedtime. 4. Florastor 250 once a day. 5. Carvedilol 3.125 mg is increased to 6.25 mg twice a day. 6. Aspirin 81 mg once a day. 7. Isosorbide mononitrate 30 mg once a day. 8. Ferrous sulfate 325 mg once a day. 9. Clopidogrel 75 mg once a day. 10. Magnesium 400 mg once a day. FOLLOWUP: She is going to follow up with Dr. Oliva next week. TIME SPENT: Time spent for this discharge is less than 30 minutes. Job ID: [id number]
[2019-02-20] MEDS: Atorvastatin Calcium 20 MG TAB PO SCH (20:21)
[2019-02-20] MEDS ORDERED: Lisinopril 2.5 MG TAB PO SCH (21:00)
[2019-02-21] MEDS ORDERED: Lisinopril 10 MG TAB PO SCH (09:00)
[2019-02-21] MEDS: Aspirin 81 mg Enteric Coated Tablet PO SCH (09:27)
[2019-02-21] MEDS: Clopidogrel Bisulfate 75 MG TAB PO SCH (09:28)
[2019-02-21] MEDS: Carvedilol 3.125 MG TAB PO SCH (09:28)
[2019-02-21 18:21] VITALS: BP 174/77; TEMP 98
--- NOTE | 2019-02-21 22:10 | EKG ---
Test Reason : Blood Pressure : / mmHG Vent. Rate : 116 BPM Atrial Rate : 116 BPM P-R Int : 142 ms QRS Dur : 086 ms QT Int : 306 ms P-R-T Axes : 057 033 190 degrees QTc Int : 425 ms Sinus tachycardia Possible Left atrial enlargement Left ventricular hypertrophy with repolarization abnormality Abnormal ECG Confirmed by AYLEEN MCKINNON ([id number]), newspaper copy editor LATA HAYWARD ([id number]) on 02/21/2019 10:09:12 PM Referred By: Confirmed By:AYLEEN MCKINNON
--- NOTE | 2019-02-23 14:19 | DIS ---
DATE OF ADMISSION: 02/17/2019 DATE OF DISCHARGE: 02/21/2019 ADDENDUM: The patient was about to be discharged yesterday, but her blood pressure was elevated more than 180s. Her Coreg dose was increased to 6.25 mg twice a day and she stayed additional day in the hospital because her blood pressure is significantly better this morning at 139/62 and she was discharged home in good condition with additional change on her Coreg, which is 6.25 mg twice a day instead of 3.125 mg twice a day when she was supposed to be discharged yesterday. The rest of the discharge appears to be same. Job ID: [id number]
== END 2019-02-21 16:25 | disposition home or self-care (01) | DRG 280 ==
LOC: ERS 21:08 → CCU 02-17 00:55 → 2NO 02-19 18:28
PROVIDERS: ADMIT Internal Medicine; ATTEND Internal Medicine
PROC: 5A09457 Assistance with Respiratory Ventilation, 24-96 Consecutive Hours, Continuous Positive Airway Pressure (ICD-10-PCS; principal; 2019-02-17)
DX: I11.0 Hypertensive heart disease with heart failure (principal); J96.01 Acute respiratory failure with hypoxia; I21.4 Non-ST elevation (NSTEMI) myocardial infarction; N17.9 Acute kidney failure, unspecified; I16.1 Hypertensive emergency; I50.43 Acute on chronic combined systolic (congestive) and diastolic (congestive) heart failure; K21.9 Gastro-esophageal reflux disease without esophagitis; I25.10 Atherosclerotic heart disease of native coronary artery without angina pectoris; J44.9 Chronic obstructive pulmonary disease, unspecified; E78.5 Hyperlipidemia, unspecified; M19.90 Unspecified osteoarthritis, unspecified site; I48.0 Paroxysmal atrial fibrillation; E11.51 Type 2 diabetes mellitus with diabetic peripheral angiopathy without gangrene; I34.0 Nonrheumatic mitral (valve) insufficiency; Z95.1 Presence of aortocoronary bypass graft; Z98.51 Tubal ligation status; Z79.82 Long term (current) use of aspirin; Z79.899 Other long term (current) drug therapy; Z79.01 Long term (current) use of anticoagulants; Z79.84 Long term (current) use of oral hypoglycemic drugs; I25.2 Old myocardial infarction
CPT/HCPCS: 36415; 71045; 80048; 80053; 81003; 81015; 82553; 83735; 83880; 84484; 85025; 93005; 93010; 93306; 93798; 94660; 94760; 96374; J0360; J1650; J1940

== ENCOUNTER 2019-12-11 08:59 | Inpatient (IN) | payer MEDICARE, MEDICAID ==
[2019-12-11] MEDS ORDERED: Ondansetron PF 4 MG/2 ML Vial ONE (09:56)
[2019-12-11 10:06] LABS: #Eosinphils 0.1 thou/uL (0.0-0.7); #Lymphocytes 0.6 thou/uL (1.20-3.40); #Monocytes 0.2 thou/uL (0.11-0.59); #Neutrophils 9.7 thou/uL (1.40-6.50); %Basophils 0.1 % (0.0-1.0); %Eosinophils 1.2 % (0.0-10.0); %Lymphocytes 5.4 % (21.0-51.0); %Monocytes 1.9 % (0.0-10.0); %Neutrophils 91.4 % (42.0-75.0); Hemoglobin 14.6 g/dL (12.0-16.0); Mean Corpuscular HGB CONC 34.6 g/dL (32.0-36.0); Mean Corpuscular Volume 95.3 fL (78.0-98.0); Platelet Count 125 thou/uL (130-400); RBC Distribution Width 11.1 % (11.5-14.5); Red Blood Cell (RBC) Count 4.42 mill/uL (4.20-5.40); White Blood Cell (WBC) Count 10.6 thou/uL (4.8-10.8)
[2019-12-11 10:14] LABS: ALT (SGPT) 162 U/L (8-55); AST (SGOT) 112 U/L (5-34); Albumin 3.8 g/dL (3.4-4.8); Alkaline Phosphatase 128 U/L (40-110); Anion Gap 19 mmol/L (10-20); BUN (Urea Nitrogen) 48 mg/dL (9.8-20.1); Bilirubin, Total 1.7 mg/dL (0.2-1.2); Calc. Creatinine Clearance 0 mL/min (70-130); Calcium 9.2 mg/dL (7.8-10.44); Carbon Dioxide 22 mmol/L (23-31); Chloride 93 mmol/L (98-107); Estimated GFR-MDRD 9; Globulin 2.9 g/dL (2.4-3.5); Glucose 76 mg/dL (83-110); Lipase 221 U/L (8-78); Potassium 5.5 mmol/L (3.5-5.1); Protein, Total 6.7 g/dL (6.0-8.3); Sodium 128 mmol/L (136-145)
[2019-12-11 10:41] LABS: CKMB 2.1 ng/mL (0-6.6)
[2019-12-11 10:58] LABS: Bacteria/HPF None Seen HPF (None Seen); Bilirubin Negative (Negative); Blood, Urine 1+ (Negative); Clarity Clear (Clear); Glucose, Urine (Dipstick) Normal (Negative); Leukocyte Negative Leu/uL (Negative); Nitrite Negative (Negative); Protein, Urine (Dipstick) 20 mg/dL (Neg-Trace); RBC/HPF 0-3 HPF (0-3); Squamous Epithelial None Seen HPF (0-3); Urobilinogen Normal mg/dL (Less than 2); WBC/HPF 0-3 HPF (0-3)
--- NOTE | 2019-12-11 11:38 | RAD ---
SINGLE VIEW OF THE CHEST: COMPARISON: 02/16/2019. HISTORY: Cough and weakness. Chest pain. FINDINGS: A single view of the chest shows a normal-size cardiomediastinal silhouette. The patient is status p ost sternotomy. Atherosclerotic calcifications are seen in the aorta. Increased interstitial lung m arkings are present. There is no evidence of consolidation, mass, or pleural effusion. IMPRESSION: No evidence of acute cardiopulmonary disease. POS: C
--- NOTE | 2019-12-11 12:15 | CT ---
CT ABDOMEN AND PELVIS WITHOUT CONTRAST: Date: 12/11/2019 COMPARISON: None. HISTORY: Nausea, vomiting, and abdominal pain. Chest pain with coughing. TECHNIQUE: Multiple contiguous axial images were obtained in a CT of the abdomen and pelvis without contrast. Sa gittal and coronal reformats were performed. FINDINGS: A large amount of calcified gallstones are seen in the dependent aspect of the gallbladder. The liver is nodular and cirrhotic in appearance. The right kidney is small and atrophic. There is mild promin ence of the left renal pelvis and ureter. The ureters cannot be definitely followed into the urinary bladder. Calcifications are seen in the left aspect of the pelvis. A majority of these calcifications are within a left adnexal mass measuring 6.1 cm in size. A mass is seen near the ureterovesical junc tion on the left but this is more than likely associated with the adnexal mass rather than a distal u reteral calcification. No focal liver lesions are seen. The adrenal glands, spleen, and pancreas are unremarkable, although evaluation is limited without IV contrast. The large and small bowel are unremarkable. The appendix is not definitely seen. No abdominal or pelvic lymphadenopathy are seen. Atherosclerotic calcifications are seen in the aorta. Degenerative changes are seen in the spine. There is a calcified granuloma in the right lung base. Di ffuse soft tissue anasarca is seen. IMPRESSION: 1. Cholelithiasis. 2. Atrophic right kidney. 3. Slight prominence to left renal collecting system. A distal ureteral calcification cannot be enti rely excluded, although the calcifications in the pelvis most likely are external to the ureter. 4. Left adnexal mass measuring 6.1 cm in size. Pelvic ultrasound is recommended for further evaluati on. 5. Cirrhotic liver. POS: C
[2019-12-11 13:00] LABS: Critical Call Chem Troponin I RESULT DECREASING; Troponin I 1.349 ng/mL (< 0.028)
[2019-12-11 13:34] VITALS: BMI 19.7
[2019-12-11] MEDS ORDERED: Ondansetron ODT 4 MG TAB SL PRN (13:38)
[2019-12-11] MEDS ORDERED: Ondansetron PF 4 MG/2 ML Vial IVP PRN (13:38)
[2019-12-11] MEDS ORDERED: Sodium Chloride 0.9% 1,000 ML IV SCH (13:38)
[2019-12-11 15:55] LABS: Troponin I 1.465 ng/mL (< 0.028)
[2019-12-11] MEDS ORDERED: HumaLOG 300 UNITS/3 ML VIAL SC PRN (16:43)
[2019-12-11] MEDS ORDERED: Dextrose 5% in Water 1,000 ML IV PRN (16:43)
[2019-12-11] MEDS ORDERED: Ondansetron ODT 4 MG TAB PO PRN (16:43)
[2019-12-11] MEDS ORDERED: Dextrose 50% Abboject 50 ML SYRINGE SLOW IVP PRN (16:43)
[2019-12-11] MEDS: hydrALAZINE 20 MG/ML VIAL SLOW IVP PRN (17:10)
[2019-12-11] MEDS: Sodium Chloride 0.9% 1,000 ML IV SCH (17:11)
[2019-12-11] MEDS: Carvedilol 6.25 MG TAB PO SCH (17:11)
--- NOTE | 2019-12-11 17:47 | ULT ---
TRANSABDOMINAL PELVIC ULTRASOUND: 12/11/19 PROVIDED CLINICAL HISTORY: Abnormal CT. FINDINGS: The uterus is not discretely identified. There is a 9 cm simple appearing cystic mass within the midl ine pelvis superior to the urinary bladder. There is a second complex cystic mass with thickened inte rnal septations present in the left adnexal region measuring at least 6.8 x 7.3 x 5 cm. Free pelvic fluid is demonstrated. IMPRESSION: Cystic pelvic masses, suspicious for cystic ovarian neoplasm in a patient of this age. GEODESY TEACHER consultati on is recommended. POS: IGNACIA
[2019-12-11] MEDS: Acetaminophen 500 MG TAB PO PRN (18:19)
[2019-12-11] MEDS: Ondansetron PF 4 MG/2 ML Vial IVP PRN (18:19)
[2019-12-11] MEDS: Famotidine 20 MG TAB PO SCH (20:24)
--- NOTE | 2019-12-11 22:09 | CON ---
DATE OF CONSULTATION: 12/11/2019 REASON FOR CONSULTATION: Pelvic mass noted on CT scan after presenting to the emergency room with cough, shortness of breath, and abdominal pain. HISTORY OF PRESENT ILLNESS: Ms. Jackson is a 74-year-old female, who presented to the ER today with reported symptoms of cough, shortness of breath, and abdominal pain. I was asked by the ER to complete a gynecologic consultation for an approximate 6 cm left adnexal mass noted on abdominal CT scan. On presentation to the patient's room, she was resting comfortably. Her only immediate complaints to me were difficulty eating her lunch tray as she requested some soup. I was unable to obtain a clear recent or remote history from the patient. Any direct questions that I asked her, she had difficulty answering. When I asked the patient if she was in any pain, she reported that her chest burn when she coughed and on direct questioning about abdominal pain, she reported some point tenderness at the umbilicus. REVIEW OF SYSTEMS: Unable to complete. See HPI. PAST MEDICAL HISTORY: Was obtained through review of her previous history and physical in [facility], which include, but may not be limited to coronary artery disease, hypertension, diabetes, hearing difficulties, dyslipidemia, joint disease, history of carotid stenosis, and COPD. PAST SURGICAL HISTORY: Elicited from a previous history from 2019 reports CABG x3, heart catheterization with stents, tubal ligation, and carotid endarterectomies. FAMILY HISTORY: Unable to obtain. SOCIAL HISTORY: Unable to obtain. ALLERGIES: NO KNOWN DRUG ALLERGIES. MEDICATIONS: Not available to review at this time of this dictation. PHYSICAL EXAMINATION: VITAL SIGNS: Temperature 98.0, pulse 64, respirations 20, O2 saturation 97% on room air, blood pressure 174/77. GENERAL: In no acute distress. Alert, sitting up in bed. CHEST: Nonlabored breathing. However, dry cough noted. ABDOMEN: Soft, mild tenderness around the umbilicus, nondistended. No palpable masses. : Deferred. EXTREMITIES: Moving upper extremities equally. No clubbing, cyanosis, or edema. MENTAL STATUS: Appropriate mood and affect, but does not appear to be well oriented to self or situation. LABORATORY DATA: Hemoglobin 14.6, platelets 125. Chemistry; AST 112, ALT 162, creatinine 4.58, sodium 128, potassium 5.5, BUN 48, lipase 221. Urine, 1+ blood. IMAGING REPORTS: CT of the abdomen and pelvis with large amount of calcified gallstones in the gallbladder, nodular and cirrhotic appearing liver. Right kidney, which is small and atrophic. Mild prominence of the left renal pelvis and ureter. Calcifications in a left adnexal mass measuring approximately 6 cm with the impression of cholelithiasis, atrophic kidney, and left adnexal 6 cm mass and cirrhotic liver. ASSESSMENT AND PLAN: Ms. Yulissa Jackson is a 74-year-old female presenting with reported complaints of cough, discomfort in her chest, nausea, and abdominal pain with the finding of a 6 cm left adnexal mass in addition to cholelithiasis on her CT scan. The patient's presenting complaints, physical exam, and laboratory abnormalities to include her elevated liver function and lipase are concerning for an acute process that is not related to the findings of the adnexal mass. A transvaginal pelvic ultrasound was ordered by the provider in the ER for further evaluation of the pelvic mass. The patient also has some respiratory findings, which are unclear if they are related to her chronic cardiopulmonary processes or if they are acutely viral. I will discuss these findings with her attending physician and leave their determination for further viral testing up to them. Also discussed the recommendation for a General Surgery consult regarding the findings of cholelithiasis and the presence of her exam and laboratory findings. I anticipate outpatient followup for the adnexal mass, potentially a gynecologic oncology referral. However, if she does undergo laparoscopy during this admission, an intraoperative gynecologic consult would be appreciated. Job ID: [id number] MTDD
--- NOTE | 2019-12-11 23:46 | HP ---
PRIMARY CARE PROVIDER: Jacki Jasmine. CHIEF COMPLAINT: Nausea, vomiting, abdominal pain, and general malaise. HISTORY OF PRESENT ILLNESS: This is a 74-year-old female, who presents to [facility] Emergency Department complaining of several-day history of increasing abdominal pain, nausea, vomiting, diarrhea, cramping and chest pain. The patient denied any travel history recent exposures, documented fever, chills, or family members with similar symptoms. The patient states she had a shaking episode this morning, but was unable to clarify any associated fever. The patient is a poor historian overall and most of the history is obtained after review of the electronic medical record from the emergency room. The patient states she has mainly been at home with her over the last several weeks without any travel. The patient denied any change to her chronic medication regimen and initially rated the pain 5/10 in her lower abdomen. The patient states that her appetite had decreased over the last several days. The patient denied melena, hematemesis, recent trauma or injury. The patient denied any dysuria and states she has noticed overall decrease in volume of urine. The patient denied taking any home remedies for relief of her symptoms. In the emergency room, the patient underwent general evaluation including CT of the abdomen and pelvis showing evidence of a left adnexal mass with associated mild left-sided hydronephrosis. The patient received intravenous normal saline x1 L in addition to Zofran 4 mg x1 dose. The patient was also noted on metabolic workup with cardiac biomarkers ranging between 1.35-1.69, consistent with non-ST elevation myocardial infarction. The patient was also noted with elevated creatinine beyond her baseline of 1.0. Current creatinine at 4.58. PAST MEDICAL HISTORY: 1. Diabetes mellitus, type 2. 2. Hypertension. 3. Gastroesophageal reflux disease. 4. Hypertension. 5. Cardiomyopathy with ejection fraction of 25% to 30%. 6. Coronary artery disease. 7. Dyslipidemia. 8. Degenerative joint disease. 9. Carotid stenosis. 10. Chronic obstructive pulmonary disease. 11. Sensorineural deafness. PAST SURGICAL HISTORY: 1. Status post coronary artery bypass grafting x3 vessels. 2. Status post cardiac catheterization with stent placement. 3. Status post bilateral tubal ligation. 4. Status post carotid endarterectomies. CURRENT MEDICATIONS: 1. Enteric-coated aspirin 81 mg p.o. daily. 2. Isosorbide mononitrate 30 mg p.o. daily. 3. Lisinopril 10 mg p.o. daily. 4. Magnesium oxide 400 mg p.o. b.i.d. 5. Metformin 500 mg p.o. daily. 6. Zocor 40 mg p.o. at bedtime. 7. Coreg 6.25 mg p.o. b.i.d. 8. Ferrous sulfate 325 mg p.o. daily. ALLERGIES: NO KNOWN DRUG ALLERGIES. POSITIVE ALLERGIES TO EGGS. FAMILY HISTORY: No inheritable diseases per patient report. SOCIAL HISTORY: . Resides in [place], [place]. No alcohol, tobacco, or illicit drug use. REVIEW OF SYSTEMS: CONSTITUTIONAL: Negative for weight loss or gain, ability to conduct usual activities. SKIN: Negative for rash, itching. EYES: Negative for double vision, pain. ENT/MOUTH: Negative for nose bleeding, neck stiffness, pain, tenderness. CARDIOVASCULAR: Negative for palpitations, dyspnea on exertion, orthopnea. RESPIRATORY: Negative for shortness of breath, wheezing, cough, hemoptysis, fever or night sweats. GASTROINTESTINAL: Negative for poor appetite, abdominal pain, heartburn, nausea, vomiting, constipation, or diarrhea. GENITOURINARY: Negative for urgency, frequency, dysuria, nocturia. MUSCULOSKELETAL: Negative for pain, swelling. NEUROLOGIC/PSYCHIATRIC: Negative for anxiety, depression. ALLERGY/IMMUNOLOGIC: Negative for skin rash, bleeding tendency. Otherwise, negative except as stated per HPI. PHYSICAL EXAMINATION: VITAL SIGNS: On admission, blood pressure 177/74, pulse 65, respiratory rate 20, temperature 97.9 degrees Fahrenheit, O2 saturation 95% on room air. GENERAL APPEARANCE: This is a 74-year-old female, alert and oriented x2, pleasant, responsive, in no acute distress. HEENT: Pupils are equal, round, reactive to light and accommodation. Extraocular muscles are intact. No scleral icterus. No conjunctival injection. Nares patent. OP is clear. Teeth in fair repair. NECK: Supple. No cervical adenopathy. No thyromegaly. No carotid bruits. No JVD appreciated. Cervical spine with full active and passive range of motion. CHEST: Diminished breath sounds in the bases bilaterally. CARDIOVASCULAR: S1, S2 without noted murmur, rub, or gallop. ABDOMEN: Soft, nontender, and nondistended. Bowel sounds are positive in all 4 quadrants. There is no palpable mass. No rebound or guarding appreciated. EXTREMITIES: Warm and dry with fair turgor. No clubbing, cyanosis, or asymmetric edema appreciated. Pulses are palpable distally at the dorsalis pedis, posterior tibial, and popliteal arteries bilaterally. Capillary refill is less than 2 seconds. NEUROLOGIC: Cranial nerves 2 through 12 are grossly intact. No focal or lateralizing signs appreciated. Not observed ambulatory during this exam. PERTINENT LABORATORY AND X-RAY FINDINGS: Sodium 128, potassium 5.5, chloride 93, CO2 of 22, BUN 48, creatinine 4.58, estimated GFR of 9, glucose 76, calcium 9.2, total bilirubin 1.7, AST 112, ALT 162, alkaline phosphatase 128. Troponin I ranged between 1.35-1.69. Lipase 221. CBC showed a white blood cell count of 10.6, hemoglobin 14.6, hematocrit 42.1, platelet count 125, with 91% neutrophils. Urinalysis 1+ blood. Portable chest x-ray dated 12/11/2019, showed no acute cardiopulmonary process. CT of the abdomen and pelvis dated 12/11/2019, showed prominence of the left renal collecting system. Distal ureteral calcification not excluded. Left adnexal mass measuring 6.1 cm. Cirrhotic changes of the liver. EKG dated 12/11/2019, by my interpretation, shows sinus mechanism with heart rates in the 60s. Normal R-wave progression noted in the precordial leads. Normal axis. T-wave inversion in leads V3 through V6. ASSESSMENT AND PLAN: 1. Acute kidney injury on chronic kidney disease. The patient will be admitted to the telemetry unit. We will continue low volume intravenous normal saline at 50 mL/h. Avoid nephrotoxic agents and limit contrast exposure. Consult cardiology service for any recommendations regarding potential obstructive uropathy. Avoid nephrotoxic agents and limit contrast exposure. 2. Non-ST elevation myocardial infarction type 2. We will continue symptomatic and supportive care. Resume aspirin 81 mg daily. Consult cardiology service in the a.m. Repeat 2D transthoracic echocardiogram. 3. Left adnexal mass. Suspected obstructive uropathy given patient's increasing creatinine above baseline. Consult urology service for evaluation and recommendations regarding management. Questionable ureteral stent needed. Consult VALVE ASSEMBLER service for any further recommendations. 4. Abdominal pain. Suspect multifactorial process given presentation with acute kidney injury. We will continue supportive management. [place] diet as tolerated. Serial abdominal exams. 5. Transaminitis. Exact etiology unclear. Check hepatitis A, B, and C panel. Avoid hepatotoxic agents. Repeat liver function tests in the a.m. 6. Hyperkalemia. Suspect secondarily to acute kidney injury. Continue low volume normal saline and repeat potassium level in the a.m. 7. Deconditioning. PT and OT evaluation in the a.m. for functional assessment. General fall risk precautions. 8. Prophylaxis. SCDs while in bed. Pepcid 20 mg p.o. b.i.d. PT evaluation pending. 9. Code status is full. Surrogate medical decision maker is the patient's spouse. Job ID: [id number]
[2019-12-12 04:37] LABS: ALT (SGPT) 104 U/L (8-55); AST (SGOT) 65 U/L (5-34); Albumin 3.3 g/dL (3.4-4.8); Alkaline Phosphatase 94 U/L (40-110); Anion Gap 18 mmol/L (10-20); BUN (Urea Nitrogen) 53 mg/dL (9.8-20.1); Bilirubin, Total 1.3 mg/dL (0.2-1.2); Calc. Creatinine Clearance 8 mL/min (70-130); Calcium 8.5 mg/dL (7.8-10.44); Carbon Dioxide 18 mmol/L (23-31); Chloride 99 mmol/L (98-107); Estimated GFR-MDRD 9; Globulin 2.6 g/dL (2.4-3.5); Glucose 65 mg/dL (83-110); Lipase 201 U/L (8-78); Potassium 5.1 mmol/L (3.5-5.1); Protein, Total 5.9 g/dL (6.0-8.3); Sodium 130 mmol/L (136-145)
[2019-12-12 04:53] LABS: HBCM Index 0.07 S/CO (0-0.79); HBSAg Index 0.23 S/CO (0-0.99); Hep A IgM AB Non-Reactive (NonReactive); Hep A IgM S/CO 0.68 S/CO (0-0.79); Hep B Surf Ag Non-Reactive S/CO (NonReactive); Hep C IgG Ab Non-Reactive (NonReactive); Hep C Index 0.07 S/CO (0-0.79); Hepatitis B Core IgM Abs Non-Reactive (NonReactive)
[2019-12-12 05:02] LABS: Band 12 % (5-11); Eosinophils 1 % (0-10); Hemoglobin 13.6 g/dL (12.0-16.0); Lymphocytes 16 % (21-51); MDiff Complete? YES; Mean Corpuscular HGB CONC 34.4 g/dL (32.0-36.0); Mean Corpuscular Hemoglobin 32.7 pg (27.0-31.0); Mean Corpuscular Volume 95.2 fL (78.0-98.0); Mean Platelet Volume 9.6 fL (7.4-10.4); Monocytes 5 % (0-10); Neutrophil 66 % (42-75); Platelet Count 121 thou/uL (130-400); Red Blood Cell (RBC) Count 4.15 mill/uL (4.20-5.40); White Blood Cell (WBC) Count 5.9 thou/uL (4.8-10.8)
[2019-12-12] MEDS: Carvedilol 6.25 MG TAB PO SCH ×2 (08:02→17:13)
[2019-12-12] MEDS: Aspirin 81 mg Enteric Coated Tablet PO SCH (08:02)
[2019-12-12] MEDS: Magnesium Oxide 400 MG TAB PO SCH (08:02)
[2019-12-12] MEDS: hydrALAZINE 20 MG/ML VIAL SLOW IVP PRN (12:22)
[2019-12-12] MEDS: Ondansetron PF 4 MG/2 ML Vial IVP PRN (12:23)
--- NOTE | 2019-12-12 14:23 | CON ---
DATE OF CONSULTATION: 12/12/2019 REASON FOR CONSULTATION: Left hydronephrosis. CHIEF COMPLAINT: Nausea, vomiting, abdominal pain. HISTORY OF PRESENT ILLNESS: This is a 74-year-old female, who was admitted yesterday after presenting to the emergency room with abdominal pain, nausea, vomiting. CT scan was obtained at that time showing a left adnexal mass with mild hydronephrosis of the left kidney. Right kidney appears atrophic. Creatinine was elevated yesterday at 4.58 and has risen to 4.73 today. Urinalysis normal. White count 10.6 yesterday, 5.9 today. In speaking with her today, she is not able to answer any of my questions and repeats that she is having heartburn and epigastric pain with breathing. She is being worked up for NSTEMI. No prior history regarding possible adnexal mass or urologic issues. I am not able to obtain review of systems from her. PAST MEDICAL HISTORY: Obtained from her chart, noting diabetes, hypertension, reflux, hypertension, heart failure, coronary artery disease, hyperlipidemia, arthritis, carotid stenosis, COPD, deafness. PAST SURGICAL HISTORY: 1. CABG. 2. Heart catheterization with stent. 3. Tubal ligation. 4. Carotid endarterectomy. CURRENT MEDICATIONS: Have been reviewed. No pertinent urology medications. ALLERGIES: NO KNOWN DRUG ALLERGIES. FAMILY HISTORY: None reported. SOCIAL HISTORY: . No substance abuse. REVIEW OF SYSTEMS: Unable to obtain. PHYSICAL EXAMINATION: VITAL SIGNS: Afebrile. Vitals stable. Urine output not recorded. HEENT: Head, normocephalic and atraumatic. Extraocular movements intact. Sclerae nonicteric. NECK: Supple. Trachea in midline. Nonlabored breathing, symmetric chest expansion. HEART: Regular rate and rhythm. ABDOMEN: Soft, mild distention with tympany over the right side, good bowel sounds. No flank or suprapubic tenderness, adnexal mass not appreciable on abdominal exam. EXTREMITIES: Without clubbing, cyanosis, or edema. NEUROLOGIC: Alert and oriented to person only, she is not able to answer where she is or what year it is. LABORATORY DATA: Lab work as listed in HPI. IMAGING DATA: I personally reviewed her CT scan, which shows a small atrophic right kidney with mild left hydronephrosis, which appears to be secondary to an adnexal mass on the left side of her pelvis. ASSESSMENT AND PLAN: 1. Left hydronephrosis. 2. Extrinsic obstruction of the left ureter. 3. Adnexal mass. 4. Chronic kidney disease. 5. Acute renal failure. I attempted to call the patient's , who did not answer. I intend to take the patient tomorrow morning for cystoscopy and stent placement as she essentially appears to have a solitary kidney, which is currently obstructed causing renal failure. We will need to continue working to get in touch with her , so that we can properly consent for the procedure. She will still require workup for the adnexal mass with the stent remaining in place until this is treated. Job ID: [id number]
[2019-12-12] MEDS ORDERED: Isosorbide Mononitrate (ER) 30 MG TAB PO SCH (14:30)
[2019-12-12 15:40] LABS: Troponin I 1.306 ng/mL (< 0.028)
[2019-12-12] MEDS: Sodium Chloride 0.9% 1,000 ML IV SCH (18:27)
--- NOTE | 2019-12-12 18:57 | CON ---
DATE OF CONSULTATION: PRIMARY CARE DOCTOR: Dr. Jasmine. PRIMARY SENIOR C SOFTWARE DEVELOPER: Dr. Grover. REFERRING DOCTOR: Dr. Bennett. REASON FOR CARDIOLOGY CONSULT: Chest pain and elevated troponin. HISTORY OF PRESENT ILLNESS: Ms. Jackson is a 74-year-old female with significant history of coronary artery disease with CABG x3 in 2002, hypertension, diabetes, gag reflex, and GERD, cardiomyopathy with ejection fraction 25% to 30%, dyslipidemia, carotid stenosis, and COPD. At this moment, the patient is really hard of hearing and very poor historian. The patient's information was retrieved from the patient's past medication record. According to the ER report, the patient presented to Emergency Department for elevated fever with coldness and shivering. At this moment, during the interview, the patient denied any shivering or feeling cold at this moment. Also, the patient is complained of abdominal pain, feels nauseated, vomited, diarrhea, cramping, and chest pain. She stated she had a chest pain at the epigastric area towards to below the left breast, which increased with palpitation to the side. The patient also describes the pain is like a needle like sharp pain. However, the patient's troponin level was up from 1.689, 1.349, and 1.465, and also the patient's creatinine level is elevated at 4.73, and BUN of 53. Last time when the patient was consulted by Dr. Grover, he recommend the patient have a cardiac catheterization. However, the patient insist to like to see Dr. Oliva first before the patient undergo any further treatment and procedure. At this moment, since the patient is a very poor historian, the patient can tell the patient had a CABG in 2002, but she cannot remember when she had a stent placement or patient had any cath placement. Tried to reach the patient's family member; however, all telephone number in her heart chart is not working at this moment. At this moment, the patient cannot recall if the patient had any stress test or echocardiogram at Dr. Oliva's office. The patient also was found to have left adnexal mass with associated mild left-sided hydronephrosis. The patient will have a General Surgery consult regarding the finding of cholelithiasis. PAST MEDICAL HISTORY: The patient's past medical history is coronary artery disease with a history of a CABG x3 in 2002 and stent placement. According to the patient's medical record the patient followup with Dr. Oliva. History of COPD. The patient had hypertension, diabetes, hearing difficulty, hyperlipidemia, joint disease, history of carotid stenosis, and COPD. PAST SURGICAL HISTORY: The patient's surgical history; CABG x3 in 2003 and cardiac stent placement, tubal ligation, and carotid endarterectomy. FAMILY HISTORY: Unable to obtain. SOCIAL HISTORY: Unable to obtain, but seems like the patient lives with her . ALLERGIES: NO KNOWN DRUG ALLERGY. MEDICATION: Medications, which is unknown. REVIEW OF SYSTEMS: A 12-point review of systems negative unless otherwise is really noncontributory even with the patient is very hard of hearing, but the patient complained of abdominal pain and pain in the left under breast. PHYSICAL EXAMINATION: VITAL SIGNS: Blood pressure 185/75, temperature 97.3, pulse is 57 and sinus rhythm, respiratory rate 18, and O2 saturation 95% on room air. GENERAL: The patient is alert and oriented x4, but very hard of hearing. HEENT: Head, normocephalic and atraumatic. Eyes, extraocular muscle movement intact. ENT and mouth, oral and nasal mucosa moist without lesion. NECK: Supple. Normal range of motion. RESPIRATORY: Clear to auscultate bilaterally. No wheezing, rales, or rhonchi noted. CARDIAC: Sinus rhythm. Normal S1 and S2. There is no S3 or S4. No significant murmur, hives, or thrill noted. 2+ pulses in bilateral upper and lower extremities and no edema in lower extremities. ABDOMEN: Unable to palpitate, the patient refused touch. MUSCULOSKELETAL: The patient able to move all extremities. SKIN: Warm and dry. No lesion, rash, or eS4 noted. NEUROLOGIC: The patient is alert and oriented x4, not in acute distress and nonfocal. NEUROLOGIC: The patient's mood is appropriate. LABORATORY DATA: WBC 5.9, hemoglobin 13.6, hematocrit 39.5, and platelet 121. Sodium 130, which was 128, potassium 5.1, BUN 53, creatinine 4.73, and glucose of 102. Hemoglobin A1c of 5.0. AST 65 and ALT 104, which is improving. Troponin, last troponin level more than 1.4. The patient is going to have another echocardiogram as soon as possible. ASSESSMENT AND PLAN: 1. Non-ST segment elevation myocardial infarction. The patient's troponin up to 1.6 and coming down to 1.4. We would like to check another troponin level to eval. According to Dr. Grovre's consultation note when the patient had underwent coronary artery bypass surgery, since the patient's vein was very small, the patient was noted at the time of surgery she should not be re-operated on due to diffuse plaque and then diffuse disease with a distal anastomotic lesion, which we tried to find out if the patient had any cardiac catheterization by Dr. Oliva after the last admission here in 2017. At this moment, we cannot reach any family member to retrieve more information on those patient's history. At this moment, the patient's condition is stable. The pain at the chest, under her left breast is most likely musculoskeletal etiology because the patient describes her pain is sharp, needle like pain, and also the patient's pain is sharp in nature and increased with palpitation to the side or movement and take a deep breath. The patient has been on carvedilol 6.25 mg twice a day. We would like to resume isosorbide dinitrate 30 mg once a day and the patient is on the aspirin 81 mg once a day. At this moment, we would like to hold any statin, due to elevated liver function level. 2. Ischemic cardiomyopathy with low EF. The patient is going to have another echocardiogram during this admission. The patient is on the carvedilol at this moment. The patient is not on the diuretic at this moment. We would like to continue to monitor at this moment. 3. Hypertension. Isosorbide mononitrate is going to be resumed from today and we would like to continue to adjust the patient's blood pressure medication. We would like to hold angiotensin-converting enzyme inhibitor or angiotensin receptor blockers at this moment due to the acute on chronic kidney disease. 4. Acute kidney injury on chronic kidney disease. The patient is on the normal saline 50 mL panel at this moment. The patient is going to have another renal function checked tomorrow. 5. Hyperlipidemia. The patient's last LDL was less than 70. At this moment, any statin medication is going to be on hold due to elevated liver function level. 6. Chronic obstructive pulmonary disease, which is deferred to the primary care doctor. 7. Diabetes type 2. The patient's hemoglobin A1c was 5.1, which is normal. According to the patient's medication history, she is not on any diabetes medication. Thank you very much for Cardiology Service to participate in the care of this patient. We will follow along the patient's care team and make further recommendations as appropriate. Job ID: [id number]
--- NOTE | 2019-12-12 20:34 | PDOC.HOSPP ---
- Subjective Encounter Date: 12/12/19 Encounter Time: 09:45 non-verbal Subjective: no overnight evnets. This morning, blood glucose 65, asymptomatic, provided orange juice and resolved. abdominal pain and n/v improved. - Objective Vital Signs & Weight: Vital Signs (12 hours) Temp Pulse Pulse Pulse Resp BP BP 12/12/19 15:17 98.3 F 65 20 12/12/19 12:22 57 L 12/12/19 11:24 57 L 18 12/12/19 10:26 59 L 58 L 144/67 H 181/76 H 12/12/19 09:30 BP Pulse Ox 12/12/19 15:17 125/80 97 12/12/19 12:22 12/12/19 11:24 185/77 H 95 12/12/19 10:26 12/12/19 09:30 95 Weight Admit Weight 104 lb 5 oz Weight 104 lb 5 oz I&O: 12/11/19 12/12/19 12/13/19 06:59 06:59 06:59 Intake Total 1320 Balance 1320 Result Diagrams: 12/12/19 04:00 12/12/19 03:59 Additional Labs: Accuchecks 12/12/19 12/12/19 12/12/19 16:39 10:39 05:36 POC Glucose 86 102 63 L 12/11/19 20:33 POC Glucose 79 Hospitalist ROS - Review of Systems Constitutional: denies: fever, chills, sweats, weakness, malaise, other Respiratory: denies: cough, dry, shortness of breath, hemoptysis, SOB with excertion, pleuritic pain, sputum, wheezing, other Cardiovascular: reports: edema. denies: chest pain, palpitations, orthopnea, paroxysmal noc. dyspnea, light headedness Gastrointestinal: reports: abdominal pain. denies: nausea, vomiting, diarrhea, constipation, melena, hematochezia Genitourinary: reports: retention. denies: dysuria, frequency - Medication Medications: Active Medications Generic Name Dose Route Start Last Admin Trade Name Freq PRN Reason Stop Dose Admin Acetaminophen 1,000 mg 12/11/19 16:43 12/11/19 18:19 Tylenol PO 1,000 mg Q6H PRN Administration Mild Pain (1-3) Aspirin 81 mg 12/12/19 09:00 12/12/19 08:02 Ecotrin PO 81 mg DAILY TIMMY Administration Carvedilol 6.25 mg 12/11/19 17:00 12/12/19 17:13 Coreg PO 6.25 mg BID-WM TIMMY Administration Famotidine 20 mg 12/11/19 21:00 12/11/19 20:24 Pepcid PO 20 mg QPM TIMMY Administration Hydralazine HCl 10 mg 12/11/19 16:43 12/12/19 12:22 Apresoline SLOW IVP 10 mg Q4H PRN Administration SBP > 180 and HR < 70 Sodium Chloride 1,000 mls @ 50 mls/hr 12/11/19 16:45 12/12/19 18:27 Normal Saline 0.9% IV 1,000 mls .Q20H TIMMY Administration Magnesium Oxide 400 mg 12/12/19 09:00 12/12/19 08:02 Magnesium Oxide PO 400 mg DAILY TIMMY Administration Ondansetron HCl 4 mg 12/11/19 16:43 12/12/19 12:23 Zofran IVP 4 mg Q6H PRN Administration Nausea/Vomiting - Exam General Appearance: NAD, awake alert Neck: no JVD Heart: RRR, no murmur, no gallops, no rubs Respiratory: CTAB, no wheezes, no rales, no ronchi Gastrointestinal: soft, non-distended, normal bowel sounds Gastrointestinal - other findings: diffusely midly tender Extremities: 2+ LE edema Psychiatric: normal affect, normal behavior Hosp A/P - Plan #obstructive ANTONIA -due to external adnexal mass -phone consent obtained by phone; pending stent placement by urology (12/12) -evaluated by MILL OPERATOR HELPER; will follow as outpatient #NSTEMI -per cardiology, stable at this point; stopping statin per cardiology due to elevated LFTs; patient tolerated previously; elevated LFTs and bili likely may be due mild choledocholithiasis -will manage medically as per cardiology #cholelithiasis -significant stone burden in gallbladder -labs c/w early biliary obstruction -imaging does not describe findings c/w cholecystitis, WBC normal -will continue to follow; at this point, not candidate for surgery otherwise, management unchanged
[2019-12-12] MEDS: Famotidine 20 MG TAB PO SCH (20:53)
[2019-12-13] MEDS: Acetaminophen 500 MG TAB PO PRN ×2 (01:02→21:47)
[2019-12-13 04:29] LABS: #Eosinphils 0.1 thou/uL (0.0-0.7); #Lymphocytes 0.8 thou/uL (1.20-3.40); #Monocytes 0.3 thou/uL (0.11-0.59); %Basophils 0.6 % (0.0-1.0); %Eosinophils 2.2 % (0.0-10.0); %Lymphocytes 18.6 % (21.0-51.0); %Neutrophils 71.7 % (42.0-75.0); Hemoglobin 12.5 g/dL (12.0-16.0); Mean Corpuscular HGB CONC 33.8 g/dL (32.0-36.0); Mean Corpuscular Hemoglobin 32.5 pg (27.0-31.0); Mean Corpuscular Volume 96.1 fL (78.0-98.0); Mean Platelet Volume 9.6 fL (7.4-10.4); Platelet Count 100 thou/uL (130-400); Red Blood Cell (RBC) Count 3.84 mill/uL (4.20-5.40); White Blood Cell (WBC) Count 4.2 thou/uL (4.8-10.8)
[2019-12-13 04:48] LABS: ALT (SGPT) 68 U/L (8-55); AST (SGOT) 38 U/L (5-34); Alkaline Phosphatase 77 U/L (40-110); Anion Gap 15 mmol/L (10-20); BUN (Urea Nitrogen) 56 mg/dL (9.8-20.1); Bilirubin, Direct 0.4 mg/dL (0.1-0.3); Bilirubin, Total 0.9 mg/dL (0.2-1.2); Calc. Creatinine Clearance 8 mL/min (70-130); Calcium 8.1 mg/dL (7.8-10.44); Carbon Dioxide 19 mmol/L (23-31); Chloride 101 mmol/L (98-107); Estimated GFR-MDRD 9; Globulin 2.3 g/dL (2.4-3.5); Glucose 95 mg/dL (83-110); Potassium 5.1 mmol/L (3.5-5.1); Protein, Total 5.3 g/dL (6.0-8.3); Sodium 130 mmol/L (136-145)
[2019-12-13] MEDS: Carvedilol 6.25 MG TAB PO SCH ×2 (06:36→17:26)
[2019-12-13] MEDS: Magnesium Oxide 400 MG TAB PO SCH (08:09)
[2019-12-13] MEDS: Isosorbide Mononitrate (ER) 30 MG TAB PO SCH (08:09)
--- NOTE | 2019-12-13 09:20 | PRG ---
DATE OF SERVICE: 12/13/2019 SUBJECTIVE: No acute events overnight. No changes to her overall status. She continues to report what she describes as heartburn and indicates her epigastric area. She also reports feeling nauseated and having very little appetite. She denies fevers, flank pain, or dysuria. Her mentation is clear today as she is able to appropriately answer some of my questions, but she remains difficult to get to focus on the task at hand. OBJECTIVE: VITAL SIGNS: Afebrile and hypertensive. Otherwise, vitals are stable. Urine output only partially measured 450 mL with 3 unmeasured voids. GENERAL: No acute distress, resting comfortably in bed. LUNGS: Unlabored breathing, symmetric chest expansion. HEART: Regular rate and rhythm. ABDOMEN: Soft, nontender, and nondistended. Tympany improved. No flank tenderness. No suprapubic tenderness. SKIN: Warm and dry. NEUROLOGIC: Alert and oriented to person only. LABORATORY VALUES: Reviewed showing white count 4.2, hemoglobin 12.5. Creatinine remained stable at 4.72. ASSESSMENT AND PLAN: Hospital day 3, acute renal failure secondary to atrophic right kidney with obstructed left kidney secondary to left adnexal mass. I discussed the situation with the patient, and she seems to understand a little more today about what is going on and expresses understanding of what the plan is for cystoscopy and stent placement today. I did discuss this with her by phone yesterday. I advised her that while I expect this to correct her renal failure, it is possible that the extrinsic compression will prevent the stent from draining the renal unit properly or it is possible that I am unable to place a stent, in which case we would need to discuss the nephrostomy tube, which I began describing to her today. I also explained that she will still need further workup and treatment of the adnexal mass. She is currently n.p.o. for stent placement shortly. Job ID: [id number]
[2019-12-13] MEDS ORDERED: Fentanyl 100 MCG/2 ML VIAL ONE (09:37)
[2019-12-13] MEDS ORDERED: Iothalamate Meglumine 60% 30 ML VIAL FS ONE (09:40)
[2019-12-13] MEDS: hydrALAZINE 20 MG/ML VIAL SLOW IVP SCH ×4 (10:58→21:49)
--- NOTE | 2019-12-13 10:59 | CON ---
DATE OF CONSULTATION: 12/12/2019 ADDENDUM: This is an addendum to the Cardiology note already dictated by my nurse practitioner, Guerita Chan. We have discussed this patient in detail together, and I would agree with her assessment and plan. This is a very unfortunate 74-year-old female with diffuse coronary artery disease, who underwent bypass surgery in the past. She has also been found to have an ischemic cardiomyopathy with decrease in ejection fraction. She has a history of hypertension as well as new onset acute on chronic renal insufficiency with an obstructed left kidney. She has type 2 diabetes and multiple other medical problems and also she was admitted due to abdominal pain, and CT scan is suspicious for a possible ovarian cancer. At this time, the patient is somewhat confused. She has been somewhat combative with the nurses, but as far as her coronary status is concerned, it appears that she has suffered a [id number] elevation myocardial infarction. Cardiac enzymes are elevated. Also, her creatinine is elevated, which may be causing the troponin I to remain slightly elevated. At this time, we will continue to follow her carefully. I do not believe she is a very good candidate for any intervention at this time. We will need to address her abdominal problems. She is a very poor historian, but I believe she has been followed by Dr. Oliva in the past. For her past medical history, social history, family history, review of systems , medications, allergies, and physical examination, please refer to the notes dictated by my nurse practitioner. I would agree with this assessment and plan. I have reviewed those records, and we have discussed the patient. IMPRESSION: 1. Dul-BA-zmvlmxj elevation myocardial infarction with elevated cardiac enzymes, which have remained stable at about 1.4 to 1.6. At this time, we will continue to monitor her very carefully. She does have coronary artery disease and had bypass surgery but has been told in the past that she has small vessels and most likely is not a candidate for intervention or bypass surgery. I will try to obtain the records from Dr. Oliva's office to see whether or not this is indeed the case. 2. Ischemic cardiomyopathy, low ejection fraction. We will repeat the echocardiogram to see what her ejection fraction is doing, to see whether or not we may need to adjust her medications. 3. Abdominal pain, possible ovarian cancer. This will be dealt with by the surgery staff to determine whether or not she is a candidate for surgery or whether or not there is any other intervention that may need to be undertaken. Certainly this may become if she has severe coronary artery disease that may need to be addressed prior to undergoing major surgical procedures. 4. Hyperlipidemia: She will be continued on statin medications as long as she will be able to take her medications; however, due to her elevated liver functions, I believe these medications are on hold at this time. 5. Acute renal insufficiency with left renal obstruction. Seen by urology. Plan for stent placement. 6. As far as her other medical problems, they will be dealt with by the primary care service. We will be more than happy to continue to follow the patient with you. Job ID: [id number] [email or web address]
[2019-12-13] MEDS: Aspirin 81 mg Enteric Coated Tablet PO SCH (11:08)
[2019-12-13] MEDS ORDERED: Nitroglycerin 2% Ointment 1 INCH/1 GM Packet TOP SCH (11:15)
--- NOTE | 2019-12-13 11:34 | PDOC.CPN ---
- Subjective Date: 12/13/19 Time: 11:45 Interval history: the pt seen and examined. No overnight events. No cardiac complaints, except at 1100. - Objective Allergies/Adverse Reactions: Allergies Allergy/AdvReac Type Severity Reaction Status Date / Time No Known Drug Allergies Allergy Verified 11/09/19 18:05 egg AdvReac Mild Diarrhea Verified 11/09/19 18:05 Visit Medications: Current Medications Acetaminophen (Tylenol) 1,000 mg PO Q6H PRN PRN Reason: Mild Pain (1-3) Last Admin: 12/13/19 01:02 Dose: 1,000 mg Aspirin (Ecotrin) 81 mg PO DAILY [facility] Last Admin: 12/13/19 11:08 Dose: 81 mg Carvedilol (Coreg) 6.25 mg PO BID-[facility] Last Admin: 12/13/19 06:36 Dose: 6.25 mg Dextrose/Water (Dextrose 50%) 25 gm SLOW IVP PRN PRN PRN Reason: Hypoglycemia Famotidine (Pepcid) 20 mg PO QPM [facility] Last Admin: 12/12/19 20:53 Dose: 20 mg Glucagon (Glucagon) 1 mg IM PRN PRN PRN Reason: Hypoglycemia Hydralazine HCl (Apresoline) 10 mg SLOW IVP Q4H [facility] Last Admin: 12/13/19 10:58 Dose: 10 mg Dextrose/Water (D5w) 1,000 mls @ 0 mls/hr IV .Q0M PRN PRN Reason: Hypoglycemia Sodium Chloride (Normal Saline 0.9%) 1,000 mls @ 50 mls/hr IV .Q20H [facility] Last Admin: 12/12/19 18:27 Dose: 1,000 mls Insulin Human Lispro (Humalog) 0 units SC .MILD SLIDING SCALE PRN PRN Reason: Mild Correctional Scale Insulin Human Lispro (Humalog) 0 units SC .BEDTIME SLIDING SC PRN PRN Reason: Bedtime Correctional Scale Isosorbide Mononitrate (Imdur Er) 30 mg PO DAILY [facility] Last Admin: 12/13/19 08:09 Dose: 30 mg Magnesium Oxide (Magnesium Oxide) 400 mg PO DAILY [facility] Last Admin: 12/13/19 08:09 Dose: 400 mg Nitroglycerin (Nitro-Bid 2% Ointment) 0.5 inch TOP NOW [facility] Stop: 12/13/19 13:15 Last Admin: 12/13/19 11:20 Dose: 0.5 inch Nitroglycerin (Nitro-Bid 2% Ointment) 0.5 inch TOP Q8HR TIMMY Ondansetron HCl (Zofran Odt) 4 mg PO Q6H PRN PRN Reason: Nausea/Vomiting Ondansetron HCl (Zofran) 4 mg IVP Q6H PRN PRN Reason: Nausea/Vomiting Last Admin: 12/12/19 12:23 Dose: 4 mg Vital Signs & Weight: Vital Signs Temp Pulse Resp BP BP BP Pulse Ox 12/13/19 10:58 197/80 H 12/13/19 07:57 97.8 F 62 18 188/78 H 100 12/13/19 06:36 153/69 H 12/13/19 04:46 98.1 F 62 18 153/69 H 97 12/13/19 00:00 98.2 F 63 18 166/70 H 97 Admit Weight 104 lb 5 oz Weight 104 lb 5 oz - Physical Exam General: alert & oriented x3 HEENT: mucus membranes moist Neck: supple neck Cardiac: regular rate and rhythm, S1/S2 Lungs: clear to auscultation, decreased breath sounds - Labs Result Diagrams: 12/13/19 03:54 12/13/19 03:54 Troponin/CKMB CK-MB (CK-2) 2.1 ng/mL (0-6.6) 12/11/19 09:20 Troponin I 1.306 ng/mL (< 0.028) H* 12/12/19 03:59 - Telemetry Sinus rhythms and dysrhythmias: sinus rhythm - Assessment/Plan Assessment/Plan: 1. NSTEMI - The pt complains of CP around 1100 with elevated BP; Hydralazine IV PRN and NTG paste given; 12-lead ECG; waiting for Echo result 2. ANTONIA due to obstructive due to external adnexal mass - plan for stent placement by urology today 3. HTN - will start Norvasc 5mg qd 4. CAD with hx of CABG x3 in 2002 and not a good candidate for futher intervention or re-do bypass - On Coreg and ASA; holding Statin due to elevated LFT 5. Ischemic CMY - waiting for Echo result 6. DM type 2 - 7. HLD 8. COPD 9. Carotid stenosis with hx of CEA in past MAR reviewed * Primary Drawing Frame Tender: Dr Oliva * Dr Grover's pt Pt. seen and evaluated by me. She does not have any cardiac complaints. She does c/o abd. discomfort. Chest clear. RRR. There are still no records available from [facility]. According to the old records she had a CABG 17 years ago and was told that she should not undergo CABG again due to diffuse disease and small vessels. She had a stent placed some time after that. She has a CMY with an EF of 30-35% at best. She did have slight troponin I elevation and this may indicate a small NSTEMI. I do not believe that she is a candidate for any cardiac intervention at this time. With the deteriorating renal function the contrast would likely cause renal failure and most likely there is no intervention that can be done to the coronaries. She is at least moderate to high risk for any major surgical procedure but a renal stent placement should not cause undue stress on the heart. Without the stent to the kidney or a nephrostomy tube she will certainly lose the kidney and have renal failure. In my opinion the risk of not doing the renal stent is a higher risk than doing it. I would suggest she proceed with the renal stent or nephrosty tube as planned by urology. MD rebecca
[2019-12-13] MEDS ORDERED: Amlodipine 5 MG TAB PO SCH (11:36)
[2019-12-13] MEDS: Sodium Chloride 0.9% 1,000 ML IV SCH (13:20)
[2019-12-13] MEDS: Nitroglycerin 2% Ointment 1 INCH/1 GM Packet TOP SCH ×2 (13:55→21:48)
--- NOTE | 2019-12-13 19:49 | PDOC.HOSPP ---
- Subjective Encounter Date: 12/13/19 Encounter Time: 09:00 Subjective: no overnight events. This morning, laying comfortably in bed and has no complaints. Was taken down to place stent however aborted due to NSTEMI. Will seek cardiology input and NPO midnight for possible procedure tomorrow. Later during the day at around 11am, developed squeezing chest tightness, substernal, given nitro paste as per cardiology and pain resolved promptly. - Objective Vital Signs & Weight: Vital Signs (12 hours) Temp Pulse Resp BP BP BP Pulse Ox 12/13/19 17:26 143/67 H 12/13/19 16:31 98.5 F 60 12 136/63 97 12/13/19 13:19 127/59 L 12/13/19 12:27 70 161/71 H 12/13/19 11:42 98.6 F 67 18 175/74 H 98 12/13/19 10:58 197/80 H 12/13/19 07:57 97.8 F 62 18 188/78 H 100 Weight Admit Weight 104 lb 5 oz Weight 104 lb 5 oz I&O: 12/12/19 12/13/19 12/14/19 06:59 06:59 06:59 Intake Total 2400 720 Output Total 450 550 Balance 1950 170 Result Diagrams: 12/13/19 03:54 12/13/19 03:54 Additional Labs: Accuchecks 12/13/19 12/13/19 12/13/19 16:47 10:44 05:34 POC Glucose 121 H 94 83 12/12/19 20:24 POC Glucose 119 H Hospitalist ROS - Review of Systems Constitutional: denies: fever, chills, sweats, weakness, malaise, other Eyes: denies: vision change Respiratory: reports: SOB with excertion. denies: cough, dry, shortness of breath, hemoptysis, pleuritic pain, sputum Cardiovascular: reports: chest pain, edema. denies: palpitations, orthopnea, paroxysmal noc. dyspnea, light headedness Gastrointestinal: denies: nausea, vomiting, abdominal pain, diarrhea, constipation, melena - Medication Medications: Active Medications Generic Name Dose Route Start Last Admin Trade Name Freq PRN Reason Stop Dose Admin Acetaminophen 1,000 mg 12/11/19 16:43 12/13/19 01:02 Tylenol PO 1,000 mg Q6H PRN Administration Mild Pain (1-3) Aspirin 81 mg 12/12/19 09:00 12/13/19 11:08 Ecotrin PO 81 mg DAILY TIMMY Administration Carvedilol 6.25 mg 12/11/19 17:00 12/13/19 17:26 Coreg PO 6.25 mg BID-WM TIMMY Administration Famotidine 20 mg 12/11/19 21:00 12/12/19 20:53 Pepcid PO 20 mg QPM TIMMY Administration Hydralazine HCl 10 mg 12/13/19 09:30 12/13/19 17:27 Apresoline SLOW IVP Not Given Q4H TIMMY Sodium Chloride 1,000 mls @ 50 mls/hr 12/11/19 16:45 12/13/19 13:20 Normal Saline 0.9% IV 1,000 mls .Q20H TIMMY Administration Isosorbide Mononitrate 30 mg 12/13/19 09:00 12/13/19 08:09 Imdur Er PO 30 mg DAILY TIMMY Administration Magnesium Oxide 400 mg 12/12/19 09:00 12/13/19 08:09 Magnesium Oxide PO 400 mg DAILY TIMMY Administration Nitroglycerin 0.5 inch 12/13/19 14:00 12/13/19 13:55 Nitro-Bid 2% Ointment TOP 0.5 inch Q8HR TIMMY Administration Ondansetron HCl 4 mg 12/11/19 16:43 12/12/19 12:23 Zofran IVP 4 mg Q6H PRN Administration Nausea/Vomiting - Exam General Appearance: NAD, awake alert Heart: RRR, no murmur, no gallops, no rubs Respiratory: CTAB, no wheezes, no rales Gastrointestinal: soft, non-tender, non-distended, normal bowel sounds Extremities: 2+ LE edema Psychiatric: normal affect, normal behavior, A&O x 3 Hosp A/P - Plan #obstructive ANTONIA -due to external adnexal mass -phone consent obtained by phone; pending stent placement by urology (12/13) depending on cardiology input -evaluated by [employer]ER; will adnexal mass as outpatient; If renal function improves after stent placement. Otherwise, will discuss with [employer] OFF[employer]ER #NSTEMI -had chest pain this morning (12/12); resolved after nitro paste and better control of blood pressure -even after resolution of NSTEMI, patient has risk of RCRI risk class 4; defer to cardiology -restarted statin, -adjusted blood pressure medication to avoid demand ischemia -repeat troponin in AM now that BP better controlled #cholelithiasis -significant stone burden in gallbladder -labs c/w early biliary obstruction -imaging does not describe findings c/w cholecystitis, WBC normal -LFTs improving (12/12)
[2019-12-13] MEDS: Famotidine 20 MG TAB PO SCH (21:47)
[2019-12-13] MEDS: Atorvastatin Calcium 40 MG TAB PO SCH (21:47)
[2019-12-14] MEDS: hydrALAZINE 20 MG/ML VIAL SLOW IVP SCH ×6 (00:42→19:42)
[2019-12-14 04:40] LABS: Anion Gap 14 mmol/L (10-20); BUN (Urea Nitrogen) 53 mg/dL (9.8-20.1); Calc. Creatinine Clearance 8 mL/min (70-130); Calcium 8.1 mg/dL (7.8-10.44); Carbon Dioxide 21 mmol/L (23-31); Chloride 104 mmol/L (98-107); Estimated GFR-MDRD 10; Glucose 89 mg/dL (83-110); Potassium 4.8 mmol/L (3.5-5.1); Sodium 134 mmol/L (136-145)
[2019-12-14 05:29] LABS: Band 2 % (5-11); Eosinophils 3 % (0-10); Hemoglobin 12.5 g/dL (12.0-16.0); Lymphocytes 35 % (21-51); MDiff Complete? YES; Mean Corpuscular HGB CONC 34.2 g/dL (32.0-36.0); Mean Corpuscular Hemoglobin 32.8 pg (27.0-31.0); Mean Corpuscular Volume 95.7 fL (78.0-98.0); Mean Platelet Volume 9.2 fL (7.4-10.4); Monocytes 7 % (0-10); Neutrophil 53 % (42-75); Platelet Count 107 thou/uL (130-400); Platelet Morphology Comment Appears Decreased; Red Blood Cell (RBC) Count 3.82 mill/uL (4.20-5.40); White Blood Cell (WBC) Count 3.7 thou/uL (4.8-10.8)
[2019-12-14] MEDS: Nitroglycerin 2% Ointment 1 INCH/1 GM Packet TOP SCH ×3 (05:49→21:20)
[2019-12-14 08:03] LABS: Troponin I 0.503 ng/mL (< 0.028)
[2019-12-14] MEDS: Amlodipine 5 MG TAB PO SCH (08:40)
[2019-12-14] MEDS: Carvedilol 6.25 MG TAB PO SCH ×2 (08:40→17:48)
[2019-12-14] MEDS: Isosorbide Mononitrate (ER) 30 MG TAB PO SCH (08:41)
[2019-12-14] MEDS ORDERED: Iothalamate Meglumine 60% 30 ML VIAL FS ONE (09:55)
[2019-12-14] MEDS ORDERED: Midazolam HCl 2 mg/2 ml Vial ONE (10:07)
[2019-12-14] MEDS ORDERED: Ketamine 50 MG/ML (10ML VIAL) ONE (10:08)
--- NOTE | 2019-12-14 10:27 | PRG ---
DATE OF SERVICE: 12/14/2019 SUBJECTIVE: Ms. Jackson states she is not having any chest pain or tightness. Unfortunately, she appears confused and was unable to give me her name. She is able to follow commands. She does not appear to be in any distress. OBJECTIVE: VITAL SIGNS: Her blood pressure is 148/68, the pulse is 62 and it is regular. LUNGS: Clear anteriorly and posteriorly. She will take deep breaths when asked her to do so. CARDIAC: Normal S1, normal S2. ABDOMEN: Soft and nontender. EXTREMITIES: Warm and dry. Pulses, I do feel bilateral femoral pulses. Reviewing the records, the patient has had a non-ST elevation myocardial infarction with troponin levels lower now than they were previously. The peak troponin level was 1.465, it is down to 0.5 now. Her creatinine is 4.42. As mentioned in the notes, the patient has a single kidney with an obstructing ureter. I did review the notes again in the chart. The operative note from Dr. Toussaint says the patient is not a reoperative candidate. She has undergone previous bypass surgery in the past. Most recent echocardiogram was done yesterday. The ejection fraction is 30% to 35% with inferoposterior wall and the mid and distal septum akinetic. ASSESSMENT: 1. Renal failure with obstructive ureter in a single kidney. 2. Status post non-ST elevation myocardial infarction. 3. Previous history of bypass surgery, not a reoperative candidate. 4. The patient appears somewhat confused. 5. Peripheral vascular disease. I did make attempts to contact the family. I called the 2 numbers in the chart and the numbers on the "whiteboard," I was unable to contact any of the family members. The numbers in the chart were listed as disconnected, and the other 2 numbers, there was no answer. At this point, this unfortunate patient has severe medical problems. It would appear that there is no really benefit to further delaying her ureteral stent and cystoscopy. Certainly, she is at high risk for complications regardless of whichever strategy is pursued. However, I think if we do not restore flow of her urinary system, she will have an extremely poor prognosis. I certainly would not want to expose her to contrast if at all possible unless the patient develops end-stage renal disease, she will likely have an extremely poor prognosis. It does not appear that delaying her surgery will be of any further benefit. As mentioned the risks are high, but the prognosis is without any intervention in terms of the urinary system will be very poor. We have requested records from Dr. Oliva's office and have requested again this morning. 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 At this point, I think it is appropriate to proceed the surgery with the understanding that the risks were elevated. The prognosis without any intervention from a urologic standpoint appears poor. I did make multiple attempts to contact family to further discuss this. Job ID: [id number] MTDD
[2019-12-14] MEDS ORDERED: PROPOFOL 200 MG/20 ML VIAL ONE (10:32)
--- NOTE | 2019-12-14 10:38 | RAD ---
Exam: Retrograde IVP HISTORY: Left stent placement. Kidney obstruction FINDINGS: 2 intraprocedural fluoroscopic images demonstrate retrograde opacification of the left ureter. Second image demonstrates appropriate placed stent. Proximal pigtail is in the left renal pelvis. Distal pigtails in the bladder. IMPRESSION: Fluoroscopy as above
--- NOTE | 2019-12-14 11:25 | OP ---
DATE OF PROCEDURE: 12/14/2019 PREOPERATIVE DIAGNOSIS: Left ureteral obstruction with hydronephrosis. POSTOPERATIVE DIAGNOSIS: Left ureteral obstruction with hydronephrosis. PROCEDURES PERFORMED: Cystoscopy with left retrograde pyelogram, 6 x 22 double- J ureteral stent placement. ANESTHESIA: TIVA. COMPLICATIONS: None. ESTIMATED BLOOD LOSS: None. SPECIMENS: None. DESCRIPTION OF PROCEDURE: After informed consent, the patient was taken to the operating room, transferred to the table under her own power. Anesthesia was established. A time-out was performed showing the correct patient, site, and procedure. Preoperative antibiotics were administered. She was prepped and draped in the lithotomy position. There were no abnormalities on pelvic exam. The rigid cystoscope was advanced through the urethra into the bladder. The entirety of the bladder was examined, noted to be normal without mucosal abnormalities. The right ureteral orifice was normal in appearance. The left ureteral orifice was also normal in appearance. A Pollack catheter was used to perform a left retrograde pyelogram showing good filling of the ureter with obstruction in the mid ureter with [id number] hydronephrosis and hydroureter beyond. A wire was then passed through the Pollack catheter into the left renal pelvis. A 6 x 22 double-J ureteral stent was positioned over the wire with a curl in the kidney and curl in the bladder under fluoroscopic guidance. Completion images were taken. The scope was then withdrawn. The patient was awoken from anesthesia, transferred back to her hospital bed, and taken to PACU in stable condition, where she will return to the floor upon recovery. Job ID: [id number] [facility]
[2019-12-14] MEDS: Sodium Chloride 0.9% 1,000 ML IV SCH (12:40)
[2019-12-14] MEDS: Aspirin 81 mg Enteric Coated Tablet PO SCH (12:42)
[2019-12-14] MEDS: Magnesium Oxide 400 MG TAB PO SCH (12:42)
--- NOTE | 2019-12-14 17:12 | EKG ---
Test Reason : Blood Pressure : / mmHG Vent. Rate : 070 BPM Atrial Rate : 070 BPM P-R Int : 130 ms QRS Dur : 078 ms QT Int : 378 ms P-R-T Axes : 070 046 221 degrees QTc Int : 408 ms Normal sinus rhythm Possible Left atrial enlargement Abnormal ECG When compared with ECG of 11-DEC-2019 09:34, (Unconfirmed) Non-specific change in ST segment in Anterior leads Confirmed by DR. Mylene MARIO ([id number]) on 12/14/2019 5:12:19 PM Referred By: ART Confirmed By:DR. Mylene MARIO
--- NOTE | 2019-12-14 18:46 | PDOC.HOSPP ---
- Subjective Encounter Date: 12/14/19 Encounter Time: 08:00 Subjective: no overnight events. this morning, feeling better and chest pain resolved. Has no complaints. Troponin significnatly lower, pending ureteral stent placement - Objective Vital Signs & Weight: Vital Signs (12 hours) Temp Pulse Resp BP BP BP Pulse Ox 12/14/19 17:48 123/60 12/14/19 14:26 123/60 12/14/19 11:15 97.6 F 65 18 169/72 H 99 12/14/19 09:00 98.4 F 98 20 209/81 H 98 12/14/19 07:00 98.2 F 62 12 148/68 H 97 Weight Admit Weight 104 lb 5 oz Weight 104 lb 5 oz I&O: 12/13/19 12/14/19 12/15/19 06:59 06:59 06:59 Intake Total 2400 1440 Output Total 450 1050 Balance 1950 390 Result Diagrams: 12/14/19 03:56 12/14/19 03:56 Additional Labs: Accuchecks 12/14/19 12/14/19 12/14/19 17:03 11:29 08:26 POC Glucose 104 103 95 12/14/19 12/13/19 05:32 20:22 POC Glucose 84 183 H Hospitalist ROS - Review of Systems Constitutional: denies: fever, chills, sweats, weakness, malaise, other Respiratory: denies: cough, dry, shortness of breath, hemoptysis, SOB with excertion, pleuritic pain, sputum, wheezing, other Cardiovascular: denies: chest pain, palpitations, orthopnea, paroxysmal noc. dyspnea, edema, light headedness, other Gastrointestinal: denies: nausea, vomiting, abdominal pain, diarrhea, constipation, melena, hematochezia, other - Medication Medications: Active Medications Generic Name Dose Route Start Last Admin Trade Name Freq PRN Reason Stop Dose Admin Acetaminophen 1,000 mg 12/11/19 16:43 12/13/19 21:47 Tylenol PO 1,000 mg Q6H PRN Administration Mild Pain (1-3) Amlodipine Besylate 5 mg 12/14/19 09:00 12/14/19 08:40 Norvasc PO 5 mg DAILY TIMMY Administration Aspirin 81 mg 12/12/19 09:00 12/14/19 12:42 Ecotrin PO 81 mg DAILY TIMMY Administration Atorvastatin Calcium 40 mg 12/13/19 21:00 12/13/19 21:47 Lipitor PO 40 mg HS TIMMY Administration Carvedilol 6.25 mg 12/11/19 17:00 12/14/19 17:48 Coreg PO 6.25 mg BID-WM TIMMY Administration Famotidine 20 mg 12/11/19 21:00 12/13/19 21:47 Pepcid PO 20 mg QPM TIMMY Administration Hydralazine HCl 10 mg 12/13/19 09:30 12/14/19 17:48 Apresoline SLOW IVP 10 mg Q4H TIMMY Administration Sodium Chloride 1,000 mls @ 50 mls/hr 12/11/19 16:45 12/14/19 12:40 Normal Saline 0.9% IV 1,000 mls .Q20H TIMMY Administration Isosorbide Mononitrate 30 mg 12/13/19 09:00 12/14/19 08:41 Imdur Er PO 30 mg DAILY TIMMY Administration Magnesium Oxide 400 mg 12/12/19 09:00 12/14/19 12:42 Magnesium Oxide PO 400 mg DAILY TIMMY Administration Nitroglycerin 0.5 inch 12/13/19 14:00 12/14/19 14:32 Nitro-Bid 2% Ointment TOP 0.5 inch Q8HR TIMMY Administration Ondansetron HCl 4 mg 12/11/19 16:43 12/12/19 12:23 Zofran IVP 4 mg Q6H PRN Administration Nausea/Vomiting - Exam General Appearance: NAD, awake alert Heart: RRR, no murmur, no gallops, no rubs Respiratory: CTAB, no wheezes, no rales, no ronchi Gastrointestinal: soft, non-tender, non-distended, normal bowel sounds Extremities: 2+ LE edema Psychiatric: normal affect, normal behavior, oriented to person, oriented to place. negative: oriented to time Hosp A/P - Plan #obstructive ANTONIA -pending ureteral stent placement (12/13) #NSTEMI -no chest pain (12/13); trop 0.5 and significantly lower -continue current management #cholelithiasis -significant stone burden in gallbladder -labs c/w early biliary obstruction -imaging does not describe findings c/w cholecystitis, WBC normal -LFTs improving (12/12)
[2019-12-14] MEDS: Acetaminophen 500 MG TAB PO PRN (19:41)
[2019-12-14] MEDS: Famotidine 20 MG TAB PO SCH (19:41)
[2019-12-14] MEDS: Atorvastatin Calcium 40 MG TAB PO SCH (19:41)
[2019-12-15] MEDS: hydrALAZINE 20 MG/ML VIAL SLOW IVP SCH ×6 (02:00→21:00)
[2019-12-15 05:10] LABS: Anion Gap 15 mmol/L (10-20); BUN (Urea Nitrogen) 45 mg/dL (9.8-20.1); Calc. Creatinine Clearance 9 mL/min (70-130); Calcium 8.4 mg/dL (7.8-10.44); Carbon Dioxide 16 mmol/L (23-31); Chloride 105 mmol/L (98-107); Estimated GFR-MDRD 11; Glucose 84 mg/dL (83-110); Magnesium 1.8 mg/dL (1.6-2.6); Potassium 4.8 mmol/L (3.5-5.1); Sodium 131 mmol/L (136-145)
[2019-12-15] MEDS: Sodium Chloride 0.9% 1,000 ML IV SCH (05:25)
[2019-12-15] MEDS: Nitroglycerin 2% Ointment 1 INCH/1 GM Packet TOP SCH ×3 (05:27→21:01)
[2019-12-15] MEDS: Aspirin 81 mg Enteric Coated Tablet PO SCH (09:12)
[2019-12-15] MEDS: Magnesium Oxide 400 MG TAB PO SCH (09:12)
[2019-12-15] MEDS: Isosorbide Mononitrate (ER) 30 MG TAB PO SCH (09:12)
[2019-12-15] MEDS: Carvedilol 6.25 MG TAB PO SCH ×2 (09:12→16:32)
[2019-12-15] MEDS: Amlodipine 5 MG TAB PO SCH (09:12)
--- NOTE | 2019-12-15 09:55 | PRG ---
DATE OF SERVICE: 12/15/2019 SUBJECTIVE: Ms. Jackson is resting comfortably today. She states "I feel fine." OBJECTIVE: VITAL SIGNS: Her blood pressure 119/59 and pulse 66 and it is regular. LUNGS: Clear. CARDIAC: Normal S1 and normal S2. PERTINENT LABORATORY: Her creatinine has improved after the ureteral stent was placed, now creatinine is 3.87. ASSESSMENT: 1. Renal failure, postobstructive, improved after ureteral stent. 2. Status post non-ST elevation infarction. 3. Previous bypass surgery. 4. Distal atherosclerosis, not a reoperative candidate per previous notes. 5. Hypertension. PLAN: 1. She is being maintained on aspirin. 2. Amlodipine. 3. Nitroglycerin paste. 4. Carvedilol. 5. Isosorbide. 6. Records that have been requested from Dr. Oliva's office have not yet been received. Plan to continue the current medical regimen. No changes at the present time. The patient tolerated the ureteral stent placement and anesthesia well yesterday. Job ID: [id number]
--- NOTE | 2019-12-15 13:48 | CON ---
DATE OF CONSULTATION: 12/15/2019 SUBJECTIVE: No acute events overnight. The patient reports that she is feeling better than yesterday. She denies flank pain or suprapubic pain. OBJECTIVE: VITAL SIGNS: Afebrile. Vitals are stable. Urine output only partially measured 900 mL with 2 extra voids unmeasured. ABDOMEN: Soft, nontender, and nondistended. No flank tenderness. No suprapubic tenderness. LABORATORY DATA: Creatinine has improved after stent placement yesterday at 3.87, down from 4.42 yesterday. ASSESSMENT AND PLAN: Postoperative day 1 left ureteral stent placement for extrinsic obstruction from adnexal mass. Continue to trend creatinine. The patient will need the stent indwelling until the issue with her adnexal mass is addressed. She will need to follow up in my clinic in 1 month. Job ID: [id number]
--- NOTE | 2019-12-15 20:56 | PDOC.HOSPP ---
- Subjective Encounter Date: 12/15/19 Encounter Time: 09:00 Subjective: no overnight events. this morning, feels well and claims that her abdominal pain is improved. Otherwise no complaints. - Objective Vital Signs & Weight: Vital Signs (12 hours) Temp Pulse Pulse Pulse Resp BP BP 12/15/19 17:53 65 171/73 H 12/15/19 16:32 163/69 H 12/15/19 15:16 97.8 F 64 16 12/15/19 15:02 62 66 172/74 H 12/15/19 13:31 70 12/15/19 12:30 97.6 F 70 16 12/15/19 09:12 66 119/59 L BP BP Pulse Ox 12/15/19 17:53 12/15/19 16:32 12/15/19 15:16 172/74 H 98 12/15/19 15:02 181/74 H 12/15/19 13:31 12/15/19 12:30 118/58 L 97 12/15/19 09:12 Weight Admit Weight 104 lb 5 oz Weight 104 lb 5 oz I&O: 12/14/19 12/15/19 12/16/19 06:59 06:59 06:59 Intake Total 1440 1800 1320 Output Total 1050 900 Balance 497 948 6135 Result Diagrams: 12/14/19 03:56 12/15/19 04:13 Additional Labs: Accuchecks 12/15/19 12/15/19 12/15/19 20:40 16:28 11:02 POC Glucose 138 H 109 113 H 12/15/19 05:49 POC Glucose 85 Hospitalist ROS - Review of Systems Constitutional: denies: fever, chills, sweats, weakness, malaise, other Respiratory: denies: cough, dry, shortness of breath, hemoptysis, SOB with excertion, pleuritic pain, sputum, wheezing, other Cardiovascular: denies: chest pain, palpitations, orthopnea, paroxysmal noc. dyspnea, edema, light headedness, other Gastrointestinal: denies: nausea, vomiting, abdominal pain, diarrhea, constipation, melena, hematochezia, other - Medication Medications: Active Medications Generic Name Dose Route Start Last Admin Trade Name Freq PRN Reason Stop Dose Admin Acetaminophen 1,000 mg 12/11/19 16:43 12/14/19 19:41 Tylenol PO 1,000 mg Q6H PRN Administration Mild Pain (1-3) Amlodipine Besylate 5 mg 12/14/19 09:00 12/15/19 09:12 Norvasc PO 5 mg DAILY TIMMY Administration Aspirin 81 mg 12/12/19 09:00 12/15/19 09:12 Ecotrin PO 81 mg DAILY TIM[facility] Administration Atorvastatin Calcium 40 mg 12/13/19 21:00 12/14/19 19:41 Lipitor PO 40 mg HS TIMMY Administration Carvedilol 6.25 mg 12/11/19 17:00 12/15/19 16:32 Coreg PO 6.25 mg BID-WM TIMMY Administration Famotidine 20 mg 12/11/19 21:00 12/14/19 19:41 Pepcid PO 20 mg QPM TIMMY Administration Hydralazine HCl 10 mg 12/13/19 09:30 12/15/19 17:53 Apresoline SLOW IVP 10 mg Q4H TIMMY Administration Sodium Chloride 1,000 mls @ 50 mls/hr 12/11/19 16:45 12/15/19 05:25 Normal Saline 0.9% IV 1,000 mls .Q20H TIMMY Administration Isosorbide Mononitrate 30 mg 12/13/19 09:00 12/15/19 09:12 Imdur Er PO 30 mg DAILY [facility] Administration Magnesium Oxide 400 mg 12/12/19 09:00 12/15/19 09:12 Magnesium Oxide PO 400 mg DAILY [facility] Administration Nitroglycerin 0.5 inch 12/13/19 14:00 12/15/19 13:36 Nitro-Bid 2% Ointment TOP Not Given Q8HR [facility] Ondansetron HCl 4 mg 12/11/19 16:43 12/14/19 19:41 Zofran Odt PO 4 mg Q6H PRN Administration Nausea/Vomiting Ondansetron HCl 4 mg 12/11/19 16:43 12/12/19 12:23 Zofran IVP 4 mg Q6H PRN Administration Nausea/Vomiting - Exam General Appearance: NAD, awake alert Heart: RRR, no murmur, no gallops, no rubs Respiratory: CTAB, no wheezes, no rales, no ronchi, normal chest expansion, no tachypnea, normal percussion Gastrointestinal: soft, non-tender, non-distended, normal bowel sounds, no palpable masses, no hepatomegaly, no splenomegaly, no bruit Extremities: 1+ LE edema Hosp A/P - Plan #obstructive ANTONIA -s/p right ureteral stent placement (12/13) -Cr downtrending #NSTEMI -no chest pain (12/13); trop 0.5 and significantly lower -continue current management as per cardiology #cholelithiasis -significant stone burden in gallbladder -labs c/w early biliary obstruction -considering cardiac history, acute events, and risk of cholecystectomy, poor candidate for intervention at this time if at all; will defer decision to Dr. Rodriguez once patient is discharged likely DC 12/16 assuming renal function significantly improves. will follow up as outpatient for adnexal mass as per AUTISM MOTOR SPECIALIST recs as inpatient
[2019-12-15] MEDS: Atorvastatin Calcium 40 MG TAB PO SCH (21:00)
[2019-12-15] MEDS: Famotidine 20 MG TAB PO SCH (21:00)
[2019-12-16] MEDS: hydrALAZINE 20 MG/ML VIAL SLOW IVP SCH ×3 (03:25→09:41)
[2019-12-16] MEDS: Sodium Chloride 0.9% 1,000 ML IV SCH (03:25)
[2019-12-16] MEDS: Nitroglycerin 2% Ointment 1 INCH/1 GM Packet TOP SCH ×3 (04:47→22:33)
[2019-12-16 05:18] LABS: Anion Gap 14 mmol/L (10-20); BUN (Urea Nitrogen) 45 mg/dL (9.8-20.1); Calc. Creatinine Clearance 10 mL/min (70-130); Carbon Dioxide 17 mmol/L (23-31); Chloride 109 mmol/L (98-107); Estimated GFR-MDRD 12; Glucose 86 mg/dL (83-110); Magnesium 1.7 mg/dL (1.6-2.6); Potassium 4.5 mmol/L (3.5-5.1); Sodium 135 mmol/L (136-145)
[2019-12-16] MEDS: Aspirin 81 mg Enteric Coated Tablet PO SCH (09:40)
[2019-12-16] MEDS: Amlodipine 5 MG TAB PO SCH (09:40)
[2019-12-16] MEDS: Isosorbide Mononitrate (ER) 30 MG TAB PO SCH (09:40)
[2019-12-16] MEDS: Magnesium Oxide 400 MG TAB PO SCH (09:40)
[2019-12-16] MEDS: Carvedilol 6.25 MG TAB PO SCH ×2 (09:40→17:04)
[2019-12-16] MEDS: HumaLOG 300 UNITS/3 ML VIAL SC PRN (13:33)
--- NOTE | 2019-12-16 14:12 | EKG ---
Test Reason : Blood Pressure : / mmHG Vent. Rate : 060 BPM Atrial Rate : 060 BPM P-R Int : 130 ms QRS Dur : 090 ms QT Int : 420 ms P-R-T Axes : 062 038 174 degrees QTc Int : 420 ms Normal sinus rhythm Left ventricular hypertrophy with repolarization abnormality Abnormal ECG Confirmed by ZEUS ARAUZ DO ([id number]), supervising editor news reel LATA HAYWARD ([id number]) on 12/16/2019 2:12:19 PM Referred By: Confirmed By:ZEUS ARAUZ DO
[2019-12-16] MEDS: hydrALAZINE 25 MG TAB PO SCH ×2 (15:29→20:42)
[2019-12-16] MEDS: Atorvastatin Calcium 40 MG TAB PO SCH (20:42)
[2019-12-16] MEDS: Acetaminophen 500 MG TAB PO PRN (20:42)
[2019-12-16] MEDS: Famotidine 20 MG TAB PO SCH (20:42)
--- NOTE | 2019-12-16 22:27 | PDOC.HOSPP ---
- Subjective Encounter Date: 12/16/19 Encounter Time: 08:00 Subjective: no overnight events. feels well and has no complaints. Eager to be discharged - Objective Vital Signs & Weight: Vital Signs (12 hours) Temp Pulse Pulse Resp BP BP BP 12/16/19 20:42 65 12/16/19 19:20 98.0 F 65 18 135/64 12/16/19 17:04 175/77 H 12/16/19 15:29 97.9 F 66 16 168/72 H 168/72 H 12/16/19 14:28 62 144/67 H 12/16/19 11:50 97.8 F 84 16 174/73 H Pulse Ox 12/16/19 20:42 12/16/19 19:20 97 12/16/19 17:04 12/16/19 15:29 96 12/16/19 14:28 12/16/19 11:50 98 Weight Admit Weight 104 lb 5 oz Weight 113 lb 4.8 oz I&O: 12/15/19 12/16/19 12/17/19 06:59 06:59 06:59 Intake Total 1800 2020 730 Output Total 900 825 500 Balance 900 1195 230 Result Diagrams: 12/14/19 03:56 12/16/19 04:14 Additional Labs: Accuchecks 12/16/19 12/16/19 12/16/19 20:35 17:42 11:21 POC Glucose 183 H 90 162 H 12/16/19 06:18 POC Glucose 80 Hospitalist ROS - Review of Systems Constitutional: denies: fever, chills, sweats, weakness, malaise, other Respiratory: denies: cough, dry, shortness of breath, hemoptysis, SOB with excertion, pleuritic pain, sputum, wheezing, other Cardiovascular: denies: chest pain, palpitations, orthopnea, paroxysmal noc. dyspnea, edema, light headedness, other Gastrointestinal: denies: nausea, vomiting, abdominal pain, diarrhea, constipation, melena, hematochezia, other - Medication Medications: Active Medications Generic Name Dose Route Start Last Admin Trade Name Freq PRN Reason Stop Dose Admin Acetaminophen 1,000 mg 12/11/19 16:43 12/16/19 20:42 Tylenol PO 1,000 mg Q6H PRN Administration Mild Pain (1-3) Amlodipine Besylate 5 mg 12/14/19 09:00 12/16/19 09:40 Norvasc PO 5 mg DAILY [facility] Administration Aspirin 81 mg 12/12/19 09:00 12/16/19 09:40 Ecotrin PO 81 mg DAILY [facility] Administration Atorvastatin Calcium 40 mg 12/13/19 21:00 12/16/19 20:42 Lipitor PO 40 mg HS [facility] Administration Carvedilol 6.25 mg 12/11/19 17:00 12/16/19 17:04 Coreg PO 6.25 mg BID-WM [facility] Administration Famotidine 20 mg 12/11/19 21:00 12/16/19 20:42 Pepcid PO 20 mg QPM [facility] Administration Hydralazine HCl 25 mg 12/16/19 15:00 12/16/19 20:42 Apresoline PO 25 mg TID [facility] Administration Insulin Human Lispro 0 units 12/11/19 16:43 12/16/19 13:33 Humalog SC 2 unit .MILD SLIDING SCALE PRN Administration Mild Correctional Scale Isosorbide Mononitrate 30 mg 12/13/19 09:00 12/16/19 09:40 Imdur Er PO 30 mg DAILY [facility] Administration Magnesium Oxide 400 mg 12/12/19 09:00 12/16/19 09:40 Magnesium Oxide PO 400 mg DAILY [facility] Administration Nitroglycerin 0.5 inch 12/13/19 14:00 12/16/19 15:16 Nitro-Bid 2% Ointment TOP Not Given Q8HR [facility] Ondansetron HCl 4 mg 12/11/19 16:43 12/14/19 19:41 Zofran Odt PO 4 mg Q6H PRN Administration Nausea/Vomiting Ondansetron HCl 4 mg 12/11/19 16:43 12/12/19 12:23 Zofran IVP 4 mg Q6H PRN Administration Nausea/Vomiting Sodium Chloride 10 ml 12/16/19 21:00 12/16/19 20:46 Flush - Normal Saline IVF 10 ml Q12HR [facility] Administration - Exam General Appearance: NAD, awake alert Heart: RRR, no murmur, no gallops, no rubs, normal peripheral pulses Respiratory: CTAB, no wheezes, no rales, no ronchi, normal chest expansion, no tachypnea, normal percussion Gastrointestinal: soft, non-tender, non-distended, normal bowel sounds, no palpable masses, no hepatomegaly Extremities: 1+ LE edema Hosp A/P - Plan #obstructive ANTONIA -s/p right ureteral stent placement (12/13) -Cr downtrending #NSTEMI (resolved) #cholelithiasis -significant stone burden in gallbladder -labs c/w early biliary obstruction -considering cardiac history, acute events, and risk of cholecystectomy, poor candidate for intervention at this time if at all; will defer decision to Dr. Rodriguez once patient is discharged likely DC 12/16. Will follow up as outpatient for adnexal mass as per EXOTIC [employer]ER recs
[2019-12-17 04:30] LABS: #Eosinphils 0.1 thou/uL (0.0-0.7); #Lymphocytes 1.2 thou/uL (1.20-3.40); #Monocytes 0.3 thou/uL (0.11-0.59); #Neutrophils 1.9 thou/uL (1.40-6.50); %Basophils 0.2 % (0.0-1.0); %Eosinophils 3.6 % (0.0-10.0); %Lymphocytes 33.8 % (21.0-51.0); %Monocytes 8.3 % (0.0-10.0); %Neutrophils 54.2 % (42.0-75.0); Hemoglobin 12.8 g/dL (12.0-16.0); Mean Corpuscular HGB CONC 33.3 g/dL (32.0-36.0); Mean Corpuscular Hemoglobin 32.5 pg (27.0-31.0); Mean Corpuscular Volume 97.5 fL (78.0-98.0); Mean Platelet Volume 8.9 fL (7.4-10.4); Platelet Count 123 thou/uL (130-400); RBC Distribution Width 11.3 % (11.5-14.5); Red Blood Cell (RBC) Count 3.93 mill/uL (4.20-5.40); White Blood Cell (WBC) Count 3.5 thou/uL (4.8-10.8)
[2019-12-17 05:04] LABS: Anion Gap 13 mmol/L (10-20); BUN (Urea Nitrogen) 40 mg/dL (9.8-20.1); Calc. Creatinine Clearance 13 mL/min (70-130); Calcium 8.1 mg/dL (7.8-10.44); Carbon Dioxide 18 mmol/L (23-31); Chloride 106 mmol/L (98-107); Estimated GFR-MDRD 16; Glucose 80 mg/dL (83-110); Magnesium 1.6 mg/dL (1.6-2.6); Potassium 4.2 mmol/L (3.5-5.1); Sodium 133 mmol/L (136-145)
[2019-12-17] MEDS: Nitroglycerin 2% Ointment 1 INCH/1 GM Packet TOP SCH (05:51)
[2019-12-17 08:32] VITALS: BP 145/65; TEMP 97.6
[2019-12-17] MEDS: Carvedilol 6.25 MG TAB PO SCH (08:33)
[2019-12-17] MEDS: Isosorbide Mononitrate (ER) 30 MG TAB PO SCH (08:34)
[2019-12-17] MEDS: Amlodipine 5 MG TAB PO SCH (08:34)
[2019-12-17] MEDS: Magnesium Oxide 400 MG TAB PO SCH (08:34)
[2019-12-17] MEDS: hydrALAZINE 25 MG TAB PO SCH (08:34)
[2019-12-17] MEDS: Aspirin 81 mg Enteric Coated Tablet PO SCH (08:34)
--- NOTE | 2019-12-17 09:59 | PRG ---
DATE OF SERVICE: 12/17/2019 SUBJECTIVE: Ms. Jackson is doing well. No complaints. No chest pain. No shortness of breath. OBJECTIVE: VITAL SIGNS: Her blood pressure 145/65, pulse 70, it is regular, it is sinus on the monitor. LUNGS: Clear. CARDIAC: Normal S1, normal S2. ABDOMEN: Soft and nontender. EXTREMITIES: She has bilateral femoral pulses. LABORATORY DATA: Creatinine is improved to 2.92. I did review the records from Dr. Oliva's office. The patient has had an abnormal PET scan earlier this year with decreased perfusion of the anterior wall with karine-infarction ischemia, thought to be a high-risk scan and she was advised to undergo cardiac catheterization, but she did not pursue that. ASSESSMENT: 1. Status post coronary artery bypass grafting, not a reoperative candidate according to previous notes. The operative note revealed she had bypass x4 with free internal mammary to the left anterior descending artery, saphenous vein graft to the diagonal, obtuse marginal, and right coronary artery. It sounds like the mammary is placed on the obtuse marginal graft as a piggyback. 2. Renal failure, acute, improving, postobstructive, improving after ureteral stent with creatinine improved as outlined above. 3. Depressed left ventricular function. PLAN: 1. Stay off BENJI inhibitors at this point in view of recent renal failure. 2. Continue amlodipine 5 mg a day. 3. Aspirin 81 mg a day. 4. Carvedilol 6.25 mg twice a day. 5. Atorvastatin 40 mg a day. The patient can be released to home from a cardiac standpoint. She should follow up with her studio operator, Dr. Oliva, very complicated situation, if the patient needs major surgery, which she may well need, consideration for cardiac catheterization should be given once her renal failure improves. The patient will be following up with Dr. Oliva. Job ID: [id number] [facility]
[2019-12-17] MEDS: HumaLOG 300 UNITS/3 ML VIAL SC PRN (11:17)
--- NOTE | 2019-12-18 12:36 | DIS ---
DATE OF ADMISSION: 12/11/2019 DATE OF DISCHARGE: 12/17/2019 HOSPITAL COURSE: Ms. Jackson is a 74-year-old female with a medical history of severe coronary artery disease, who presented with chest pain and abdominal pain. She was diagnosed with NSTEMI, right adnexal mass that was causing right obstructive renal failure. STEAM PRESS TENDER was consulted and requested laparoscopic intervention was carried out as an inpatient for another cause. The patient's NSTEMI resolved and the patient underwent stent placement, after which renal function improved. The patient was discharged with followup appointments to Cardiology, STEAM PRESS TENDER, and her primary care physician for the high likelihood of further intervention required with association to her coronary artery disease and right adnexal mass. PHYSICAL EXAMINATION: VITAL SIGNS: Blood pressure 145/65, pulse 73, respirations 14, oxygen saturation 98% on room air, and temperature 97.6 Fahrenheit. GENERAL: Lying comfortably in bed, in no apparent distress. Alert and oriented. HEART: Regular rate and rhythm. No murmur. No gallops. No rubs. Normal peripheral pulses. RESPIRATORY: Clear to auscultation bilaterally. No wheezing, no rales, no rhonchi. Normal chest expansion. GI: Soft, nontender, nondistended. Normal bowel sounds. EXTREMITIES: +1 bilateral lower extremity edema. DISCHARGE MEDICATIONS: NEW MEDICATIONS: 1. Amlodipine 5 mg daily. 2. Atorvastatin 40 mg at bedtime. 3. Hydralazine 25 mg t.i.d. 4. Isosorbide mononitrate 30 mg daily. CONTINUED MEDICATIONS: 1. Plavix. 2. Metformin. 3. Aspirin. 4. Ferrous sulfate. 5. Carvedilol. DISCONTINUED MEDICATIONS: 1. Simvastatin. 2. Magnesium oxide. Job ID: [id number]
== END 2019-12-17 11:34 | disposition home or self-care (01) | DRG 659 ==
LOC: ERS 08:59 → 2NO 11:44
PROVIDERS: ADMIT Family Medicine; ATTEND Internal Medicine
PROC: 0T778DZ Dilation of Left Ureter with Intraluminal Device, Via Natural or Artificial Opening Endoscopic (ICD-10-PCS; principal; 2019-12-14)
PROC: BT1FZZZ Fluoroscopy of Left Kidney, Ureter and Bladder (ICD-10-PCS; 2019-12-14)
DX: N13.1 Hydronephrosis with ureteral stricture, not elsewhere classified (principal); I21.4 Non-ST elevation (NSTEMI) myocardial infarction; K80.51 Calculus of bile duct without cholangitis or cholecystitis with obstruction; N17.9 Acute kidney failure, unspecified; K21.9 Gastro-esophageal reflux disease without esophagitis; I25.10 Atherosclerotic heart disease of native coronary artery without angina pectoris; E78.5 Hyperlipidemia, unspecified; J44.9 Chronic obstructive pulmonary disease, unspecified; I65.29 Occlusion and stenosis of unspecified carotid artery; E11.22 Type 2 diabetes mellitus with diabetic chronic kidney disease; I12.9 Hypertensive chronic kidney disease with stage 1 through stage 4 chronic kidney disease, or unspecified chronic kidney disease; N18.9 Chronic kidney disease, unspecified; E87.5 Hyperkalemia; I25.5 Ischemic cardiomyopathy; E27.8 Other specified disorders of adrenal gland; E11.51 Type 2 diabetes mellitus with diabetic peripheral angiopathy without gangrene; Z98.51 Tubal ligation status; Z95.5 Presence of coronary angioplasty implant and graft; Z95.1 Presence of aortocoronary bypass graft; Z79.899 Other long term (current) drug therapy; Z79.01 Long term (current) use of anticoagulants; Z79.84 Long term (current) use of oral hypoglycemic drugs; Z79.82 Long term (current) use of aspirin
CPT/HCPCS: 36415; 36416; 51701; 71045; 74176; 74420; 76856; 80048; 80053; 80074; 81003; 81015; 82248; 82553; 83036; 83690; 83735; 84484; 85007; 85025; 85027; 93005; 93010; 93306; 93798; 96361; 96374; C1758; C1769; J0360; J0690; J2250; J2405; J2704; J3010; Q0162

== ENCOUNTER 2020-05-11 06:45 | Outpatient (CLI) | payer MEDICARE, MEDICAID ==
--- NOTE | 2020-05-11 07:52 | ULT ---
EXAM: Pelvic ultrasound HISTORY: Pelvic swelling metastases getting worse COMPARISON: None TECHNIQUE: Multiple grayscale and color Doppler images were obtained in a transabdominal pelvic ultra sound. Spectral analysis of the Doppler waveforms of the ovaries were performed. FINDINGS: CERVIX: No evidence of nabothian cysts. UTERUS: Normal in size without focal abnormality. ENDOMETRIAL STRIPE: 6 mm. There is a small amount of fluid in the endometrial canal. A moderate amount of ascites is seen in the pelvis. RIGHT OVARY: Multiple large cysts/follicles measuring up to 6.6 cm in size. LEFT OVARY: Multiple large cysts/follicles. IMPRESSION: 1. Moderate ascites 2. Bilateral ovarian cysts/follicles
== END 2020-05-11 06:46 | disposition home or self-care (01) ==
LOC: BICULT 06:45
PROVIDERS: ATTEND Obstetrics & Gynecology Gynecologic Oncology
DX: R19.04 Left lower quadrant abdominal swelling, mass and lump (principal); R18.8 Other ascites; N83.202 Unspecified ovarian cyst, left side; N83.201 Unspecified ovarian cyst, right side
CPT/HCPCS: 36415; 76856; 86304; 93976

== ENCOUNTER 2020-06-03 09:07 | Day surgery (SDC) | payer MEDICARE, MEDICAID ==
[2020-06-02 16:17] VITALS: BMI 20.2
[2020-06-03 10:02] LABS: #Lymphocytes 0.7 thou/uL (1.20-3.40); #Monocytes 0.2 thou/uL (0.11-0.59); #Neutrophils 2.2 thou/uL (1.40-6.50); %Basophils 0.3 % (0.0-1.0); %Eosinophils 1.2 % (0.0-10.0); %Monocytes 5.9 % (0.0-10.0); %Neutrophils 70.6 % (42.0-75.0); Hemoglobin 12.6 g/dL (12.0-16.0); Mean Corpuscular Hemoglobin 33.2 pg (27.0-31.0); Mean Corpuscular Volume 97.5 fL (78.0-98.0); Mean Platelet Volume 8.8 fL (7.4-10.4); Platelet Count 95 thou/uL (130-400); RBC Distribution Width 10.6 % (11.5-14.5); Red Blood Cell (RBC) Count 3.78 mill/uL (4.20-5.40); White Blood Cell (WBC) Count 3.1 thou/uL (4.8-10.8)
[2020-06-03 10:14] LABS: INR-International Normal Ratio 1.1; PTT 31.3 sec (22.9-36.1); Prothrombin Time 14.2 sec (12.0-14.7)
[2020-06-03] MEDS ORDERED: Sodium Bicarbonate 2.5 MEQ/5 ML VIAL ONE (10:14)
[2020-06-03 11:30] VITALS: BP 193/73; TEMP 98.1
--- NOTE | 2020-06-03 14:17 | ULT ---
ULTRASOUND-GUIDED PARACENTESIS DIAGNOSTIC AND THERAPEUTIC: DATE: 06/03/2020 HISTORY: 74-year-old female with symptomatic ascites: Abdominal distention TECHNIQUE: Signed informed consent obtained. A four-quadrant survey of abdomen performed. Site selected for puncture: right lower quadrant Overlying skin prepared and draped in usual sterile fashion. 25-gauge needle used to apply buffered lidocaine superficially and deeply. 5 [place] Yueh catheter with stylette advanced into the pocket of free intraperitoneal fluid. After drainage, the Yueh catheter was removed. Patient tolerated the procedure well. No complications. 1 bag of the fluid was sent to laboratory for analysis. FINDINGS: Volume of ascites prior to procedure:large. Volume of ascites fluid in the drainage pocket after drainage:small . Volume of ascites fluid drained:2900 mL Appearance of ascites fluid: Dark brown. IMPRESSION: Successful diagnostic and therapeutic paracentesis, with drainage of 2.9 L of ascites fluid.
== END 2020-06-03 11:20 | disposition home or self-care (01) ==
LOC: ULT 09:07
PROVIDERS: ATTEND Obstetrics & Gynecology Gynecologic Oncology
PROC: 0W9G3ZZ Drainage of Peritoneal Cavity, Percutaneous Approach (ICD-10-PCS; principal; 2020-06-03)
DX: R18.8 Other ascites (principal); E11.9 Type 2 diabetes mellitus without complications; I10 Essential (primary) hypertension; K21.9 Gastro-esophageal reflux disease without esophagitis; I42.9 Cardiomyopathy, unspecified; I25.10 Atherosclerotic heart disease of native coronary artery without angina pectoris; J44.9 Chronic obstructive pulmonary disease, unspecified; Z79.02 Long term (current) use of antithrombotics/antiplatelets; Z79.84 Long term (current) use of oral hypoglycemic drugs; Z79.899 Other long term (current) drug therapy; Z91.012 Allergy to eggs
CPT/HCPCS: 36415; 49083; 85025; 85610; 85730; 88112; 88305; 88313; 88341; 88342

== ENCOUNTER 2020-06-19 01:41 | Inpatient (IN) | payer MEDICARE, MEDICAID ==
[2020-06-19 02:32] LABS: #Lymphocytes 0.6 thou/uL (1.20-3.40); #Monocytes 0.2 thou/uL (0.11-0.59); #Neutrophils 4.3 thou/uL (1.40-6.50); %Basophils 0.1 % (0.0-1.0); %Eosinophils 0.9 % (0.0-10.0); %Lymphocytes 11.1 % (21.0-51.0); %Monocytes 4.3 % (0.0-10.0); %Neutrophils 83.6 % (42.0-75.0); Hemoglobin 11.2 g/dL (12.0-16.0); Mean Corpuscular HGB CONC 35.6 g/dL (32.0-36.0); Mean Corpuscular Hemoglobin 34.3 pg (27.0-31.0); Mean Corpuscular Volume 96.5 fL (78.0-98.0); Mean Platelet Volume 8.1 fL (7.4-10.4); Platelet Count 187 thou/uL (130-400); RBC Distribution Width 11.3 % (11.5-14.5); Red Blood Cell (RBC) Count 3.26 mill/uL (4.20-5.40); White Blood Cell (WBC) Count 5.2 thou/uL (4.8-10.8)
[2020-06-19 02:49] LABS: ALT (SGPT) 16 U/L (8-55); AST (SGOT) 35 U/L (5-34); Albumin 3.4 g/dL (3.4-4.8); Alkaline Phosphatase 119 U/L (40-110); Anion Gap 15 mmol/L (10-20); BUN (Urea Nitrogen) 12 mg/dL (9.8-20.1); Calc. Creatinine Clearance 0 mL/min (70-130); Calcium 8.6 mg/dL (7.8-10.44); Carbon Dioxide 23 mmol/L (23-31); Chloride 102 mmol/L (98-107); Estimated GFR-MDRD 61; Globulin 2.8 g/dL (2.4-3.5); Glucose 131 mg/dL (83-110); Potassium 3.8 mmol/L (3.5-5.1); Protein, Total 6.2 g/dL (6.0-8.3); Sodium 136 mmol/L (136-145)
[2020-06-19] MEDS ORDERED: Furosemide 40 MG/4 ML VIAL ONE (03:03)
[2020-06-19] MEDS ORDERED: Aspirin 325 MG TAB ONE ×2 (03:03→10:47)
[2020-06-19 03:12] LABS: CKMB 2.2 ng/mL (0-6.6)
[2020-06-19] MEDS ORDERED: Nitroglycerin 0.4 MG TAB (25 Tab Bottle) SL PRN (04:47)
[2020-06-19] MEDS ORDERED: HYDROcodone/Acetaminophen 5/325 mg Tablet PO PRN (04:47)
[2020-06-19] MEDS ORDERED: Ondansetron PF 4 MG/2 ML Vial IVP PRN (04:47)
[2020-06-19] MEDS ORDERED: Acetaminophen 650 MG Suppository PR PRN (04:47)
[2020-06-19] MEDS ORDERED: Calcium Carbonate 500 MG ChewTAB PO PRN (04:47)
[2020-06-19] MEDS ORDERED: Acetaminophen 325 MG TAB PO PRN (04:47)
[2020-06-19] MEDS ORDERED: Ondansetron ODT 4 MG TAB PO PRN (04:47)
--- NOTE | 2020-06-19 05:14 | PDOC.HHP ---
Hospitalist HPI - History of Present Illness chest pain dyspnea History of Present Illness: history is limited patient is very hard of hearing and has very poor insight of her current conditions. Case of an 75y/o female with a pmhx of cad, dm, htn and what appearts to be some ovarian cancer who comes to hospital due to chest pain. patient refers she was on her usual state of health until today when she started to experience some intermittent chest pain that dissipated after a few secs to minutes. she then states when to go use the bathroom and started with chest pain again but this time chest pain did not stopped and was accompanied by sob for which they called the ems. they noted that she was tachycardic and hypertensive, they treated her with morphine, Nitropaste and place her on CPAP with resolution of her symptoms. patient was brought to the ED and hospitalist was called for further evaluation and management. patient w a distended abdomen couldnt not explain to me why she has it that way, does refers she had a paracenthesis about 3weeks ago Hospitalist ROS - Review of Systems All other systems reviewed; all pertinent +/- noted in HPI/Subj Hospitalist History - Past Surgical History Past Surgical History: reports: CABG Other Surgical History: urethral stent - Family History Family History: reports: cerebrovascular accident, diabetes mellitus - Social History Smoking Status: Never smoker Alcohol: reports: None Drugs: reports: none - Exam General Appearance: NAD, awake alert Eye: PERRL, anicteric sclera ENT: normocephalic atraumatic, no oropharyngeal lesions Neck: supple, symmetric, no JVD Heart: no murmur, no gallops Heart - other findings: tachycardia Respiratory: CTAB, no wheezes, no rales Gastrointestinal: soft, normal bowel sounds, distended Extremities: no cyanosis, no clubbing Neurological: cranial nerve grossly intact, normal sensation to touch Musculoskeletal: normal tone, normal strength, no muscle wasting Psychiatric: normal affect, normal behavior, A&O x 3 Hospitalist Results - Labs Result Diagrams: 06/19/20 02:16 06/19/20 02:16 Lab results: WBC 5.2 thou/uL (4.8-10.8) 06/19/20 02:16 Hgb 11.2 g/dL (12.0-16.0) L 06/19/20 02:16 Hct 31.4 % (36.0-47.0) L 06/19/20 02:16 MCV 96.5 fL (78.0-98.0) 06/19/20 02:16 Plt Count 187 thou/uL (130-400) 06/19/20 02:16 Neutrophils % 83.6 % (42.0-75.0) H 06/19/20 02:16 Sodium 136 mmol/L (136-145) 06/19/20 02:16 Potassium 3.8 mmol/L (3.5-5.1) 06/19/20 02:16 Chloride 102 mmol/L (98-107) 06/19/20 02:16 Carbon Dioxide 23 mmol/L (23-31) 06/19/20 02:16 BUN 12 mg/dL (9.8-20.1) 06/19/20 02:16 Creatinine 0.90 mg/dL (0.6-1.1) 06/19/20 02:16 Glucose 131 mg/dL (83-110) H 06/19/20 02:16 Calcium 8.6 mg/dL (7.8-10.44) 06/19/20 02:16 Total Bilirubin 2.0 mg/dL (0.2-1.2) H 06/19/20 02:16 AST 35 U/L (5-34) H 06/19/20 02:16 ALT 16 U/L (8-55) 06/19/20 02:16 Alkaline Phosphatase 119 U/L (40-110) H 06/19/20 02:16 CK-MB (CK-2) 2.2 ng/mL (0-6.6) 06/19/20 02:16 Troponin I 0.127 ng/mL (< 0.028) H 06/19/20 02:16 B-Natriuretic Peptide 410.0 pg/mL (0-100) H 06/19/20 02:16 Serum Total Protein 6.2 g/dL (6.0-8.3) 06/19/20 02:16 Albumin 3.4 g/dL (3.4-4.8) 06/19/20 02:16 Hospitalist H&P A/P - Problem (1) NSTEMI (non-ST elevated myocardial infarction) Code(s): I21.4 - NON-ST ELEVATION (NSTEMI) MYOCARDIAL INFARCTION Status: Acute (2) Adnexal mass Code(s): N94.89 - OTH COND ASSOC W FEMALE GENITAL ORGANS AND MENSTRUAL CYCLE Status: Acute (3) CAD (coronary artery disease) Code(s): I25.10 - ATHSCL HEART DISEASE OF [place] CORONARY ARTERY W/O ANG PCTRS Status: Chronic (4) Deafness Code(s): H91.90 - UNSPECIFIED HEARING LOSS, UNSPECIFIED EAR Status: Chronic (5) Diabetes type 2, controlled Code(s): E11.9 - TYPE 2 DIABETES MELLITUS WITHOUT COMPLICATIONS Status: Chronic (6) Dyslipidemia Code(s): E78.5 - HYPERLIPIDEMIA, UNSPECIFIED Status: Chronic - Plan Plan: 75y/o female with the stated pmhx who presents due to nstemi nstemi - started on cad protective medication with bb,acei, statin dual anplt and full ac with lovenox - roofer applicator consulted - w nitro paste recent 2d echo on 11/26 ef3--35% inf, post mid-distal septum akinesis - telemetry monitoring - troponin elevated will trend - ekg: ST segments normal, T waves, Biphasic T waves in V1 and V2. Flattened T wave in V3. Inverted T waves in V4, V5, and V6., [place] normal, Other findings include:, left ventricular hypertrophy htn -continue home meds dm - acc+ ss adnexal mass - seems considerable advance - unclear hx had a urethral stent placed on last admission due to mass compression - paracenthesis 3weeks ago, would likely benefit from another once nstemi is st able
[2020-06-19 05:34] LABS: Troponin I 0.363 ng/mL (< 0.028)
[2020-06-19] MEDS ORDERED: Dextrose 50% Abboject 50 ML SYRINGE SLOW IVP PRN (06:02)
[2020-06-19] MEDS ORDERED: Dextrose 5% in Water 1,000 ML IV PRN (06:02)
[2020-06-19] MEDS ORDERED: Insulin Regular 300 UNITS/3 ML VIAL SC PRN (06:02)
[2020-06-19] MEDS ORDERED: Enoxaparin Sodium 60 MG/0.6 ML SYRINGE ONE ×2 (06:08→10:42)
[2020-06-19] MEDS ORDERED: Carvedilol 6.25 MG TAB PO SCH (08:00)
[2020-06-19] MEDS ORDERED: hydrALAZINE 25 MG TAB PO SCH (09:00)
[2020-06-19] MEDS ORDERED: Clopidogrel Bisulfate 75 MG TAB PO SCH (09:00)
[2020-06-19] MEDS ORDERED: Aspirin 325 mg Enteric Coated Tablet PO SCH (09:00)
[2020-06-19] MEDS ORDERED: Enoxaparin Sodium 60 MG/0.6 ML SYRINGE SC SCH (09:00)
[2020-06-19] MEDS ORDERED: Clopidogrel Bisulfate 75 MG TAB ONE (10:42)
[2020-06-19] MEDS ORDERED: Aspirin Chewable 81 MG TAB ONE (10:42)
--- NOTE | 2020-06-19 10:57 | RAD ---
PORTABLE CHEST: 06/19/20 PROVIDED CLINICAL HISTORY: Shortness of breath. COMPARISON: 12/11/2019 FINDINGS: The cardiac and mediastinal silhouette is unchanged in appearance. Median sternotomy changes and vasc ular calcification involving the thoracic aorta are again noted. Chronic obstructive changes are seen . There is patchy air space disease throughout the mid and lower lung zones on the left. There is eddy nting of both costophrenic angles that could reflect pleural fluid. There is no evidence for pneumoth orax. IMPRESSION: 1. Patchy left hemithoracic air space disease, which may reflect pneumonia. Followup is recommended. 2. Blunting of each costophrenic angle may reflect pleural fluid. POS: IGNACIA
[2020-06-19 11:54] VITALS: BP 160/68
--- NOTE | 2020-06-19 15:34 | DIS ---
DATE OF ADMISSION: 06/19/2020 DATE OF DISCHARGE: 06/19/2020 DISCHARGE DIAGNOSES: 1. Non-ST elevation myocardial infarction. 2. Adnexal mass. 3. History of ovarian cancer. 4. Coronary artery disease. 5. Hearing loss. 6. Diabetes type 2. 7. Dyslipidemia. CONSULTATIONS CALLED: Cardiology; however, the patient was transferred to another hospital before she was seen by Cardiology. PROCEDURES DONE: None. HOSPITAL COURSE: Ms. Jackson is a 75-year-old lady who is very hard of hearing, recent diagnosis of ovarian cancer with ascites, CAD, diabetes, and hypertension, who was brought to the emergency room on account of chest pain. Chest pain was associated with shortness of breath, tachycardia, and elevated blood pressure. EMS was consulted and brought the patient to the emergency room. Upon presentation to the emergency room, she was noted to have elevated troponins. She was also noted to have diffuse ascites. The patient was admitted for further evaluation. However, while admitted, it was decided that the patient should be transferred to another hospital for lateral transfer and optimal management. The other hospital has accepted the patient and she will be transferred there at this time. PHYSICAL EXAMINATION: GENERAL: Elderly lady, chronically ill-looking, cachectic. HEENT: Mildly pale. No jaundice. Pupils are equal, round, and reactive to light and accommodation. Extraocular muscles are intact. NECK: Supple. No JVD. No thyromegaly. No bruits. CARDIOVASCULAR SYSTEM: First and second heart sounds were heard. No murmurs. No rubs. No gallops. RESPIRATORY SYSTEM: Good air entry bilaterally. No crackles. No rales. No wheezes. ABDOMEN: Bowel sounds are present. Abdomen is grossly distended. The patient has a right palpable mass on her right flank. EXTREMITIES: No cyanosis. No clubbing. No edema. CENTRAL NERVOUS SYSTEM: Cranial nerves 2 through 12 are grossly intact. The patient is, however, hard of hearing. MEDICATIONS: Kindly see medication reconciliation list. The patient was discharged on same medications that she came in with. FOLLOWUP APPOINTMENTS: The patient is to be given followup appointments when discharged from the hospital she was transferred to. Job ID: [id number] MTDD
[2020-06-19] MEDS ORDERED: Atorvastatin Calcium 40 MG TAB PO SCH (21:00)
[2020-06-20 12:58] LABS: SARS-CoV-2 MS2 Positive; SARS-CoV-2 N Gene Negative; SARS-CoV-2 S Gene Negative; SARS-CoV-2 by NAA Not Detected (NotDetected); SARS-CoV-2 orf1ab Negative
== END 2020-06-19 12:24 | disposition short-term general hospital (02) | DRG 281 ==
LOC: ERS 01:41 → ERHOLD 04:00 → OBSVTOIN 06:00
PROVIDERS: ADMIT Internal Medicine; ATTEND Internal Medicine
DX: I21.4 Non-ST elevation (NSTEMI) myocardial infarction (principal); R18.8 Other ascites; R64 Cachexia; Z68.43 Body mass index [BMI] 50.0-59.9, adult; E11.9 Type 2 diabetes mellitus without complications; I25.10 Atherosclerotic heart disease of native coronary artery without angina pectoris; E78.5 Hyperlipidemia, unspecified; K21.9 Gastro-esophageal reflux disease without esophagitis; N94.89 Other specified conditions associated with female genital organs and menstrual cycle; H91.90 Unspecified hearing loss, unspecified ear; I10 Essential (primary) hypertension; Z95.1 Presence of aortocoronary bypass graft; Z91.012 Allergy to eggs; Z79.82 Long term (current) use of aspirin; Z79.899 Other long term (current) drug therapy; Z85.43 Personal history of malignant neoplasm of ovary; Z79.84 Long term (current) use of oral hypoglycemic drugs; Z79.01 Long term (current) use of anticoagulants
CPT/HCPCS: 36415; 71045; 80053; 82553; 83880; 84484; 85025; 87635; 93005; J1650; J1940; U0003

== ENCOUNTER 2020-07-13 16:23 | Inpatient (IN) | payer MEDICARE, MEDICAID ==
[2020-07-13 17:11] LABS: #Lymphocytes 0.4 thou/uL (1.20-3.40); #Monocytes 0.3 thou/uL (0.11-0.59); #Neutrophils 7.8 thou/uL (1.40-6.50); %Basophils 0.1 % (0.0-1.0); %Eosinophils 0.1 % (0.0-10.0); %Lymphocytes 4.7 % (21.0-51.0); %Neutrophils 91.2 % (42.0-75.0); Hemoglobin 11.8 g/dL (12.0-16.0); Mean Corpuscular HGB CONC 34.8 g/dL (32.0-36.0); Mean Corpuscular Hemoglobin 33.1 pg (27.0-31.0); Mean Corpuscular Volume 95.2 fL (78.0-98.0); Mean Platelet Volume 8.1 fL (7.4-10.4); Platelet Count 173 thou/uL (130-400); RBC Distribution Width 11.1 % (11.5-14.5); Red Blood Cell (RBC) Count 3.58 mill/uL (4.20-5.40); White Blood Cell (WBC) Count 8.5 thou/uL (4.8-10.8)
[2020-07-13 17:34] LABS: Bacteria/HPF 2+ HPF (None Seen); Bilirubin Negative (Negative); Blood, Urine Trace (Negative); Clarity Turbid (Clear); Glucose, Urine (Dipstick) Normal (Negative); Ketone, Urine Negative (Negative); Leukocyte 500 Leu/uL (Negative); Nitrite Negative (Negative); Protein, Urine (Dipstick) 10 mg/dL (Neg-Trace); RBC/HPF 0-3 HPF (0-3); Squamous Epithelial None Seen HPF (0-3); Urobilinogen Normal mg/dL (Less than 2); WBC/HPF Greater than 50 HPF (0-3); pH, Urine 5.5 (5.0-9.0)
[2020-07-13 17:34] LABS: ALT (SGPT) 38 U/L (8-55); AST (SGOT) 83 U/L (5-34); Albumin 3.2 g/dL (3.4-4.8); Alkaline Phosphatase 211 U/L (40-110); Anion Gap 16 mmol/L (10-20); BUN (Urea Nitrogen) 14 mg/dL (9.8-20.1); Bilirubin, Total 1.8 mg/dL (0.2-1.2); Calc. Creatinine Clearance 0 mL/min (70-130); Calcium 8.3 mg/dL (7.8-10.44); Carbon Dioxide 24 mmol/L (23-31); Chloride 94 mmol/L (98-107); Globulin 3.2 g/dL (2.4-3.5); Glucose 97 mg/dL (83-110); Potassium 3.6 mmol/L (3.5-5.1); Protein, Total 6.4 g/dL (6.0-8.3); Sodium 130 mmol/L (136-145)
--- NOTE | 2020-07-13 17:43 | RAD ---
Portable frontal chest radiograph: 07/13/2020 COMPARISON: 06/19/2020 HISTORY: Abdominal pain and distention, chest pain FINDINGS: Midline sternotomy wires are noted. There is atherosclerotic calcification of the thoracic aorta. There is mild increased linear interstitial density with pulmonary hyperinflation. No pneumothorax or pleural fluid. No focal consolidation or alveolar edema. IMPRESSION: No acute findings.
[2020-07-13] MEDS ORDERED: Cefepime 2 GM VIAL ONE (18:21)
[2020-07-13] MEDS ORDERED: Sodium Chloride 0.9% 100 ML ONE (18:22)
[2020-07-13] MEDS ORDERED: Vancomycin 1 GM/200 ML BAG ONE (19:09)
[2020-07-14 02:30] VITALS: BMI 20.7
[2020-07-14] MEDS ORDERED: HYDROcodone/Acetaminophen 5/325 mg Tablet PO PRN ×3 (04:32→11:09)
[2020-07-14] MEDS ORDERED: Acetaminophen 650 MG Suppository PR PRN (04:32)
[2020-07-14] MEDS ORDERED: Calcium Carbonate 500 MG ChewTAB PO PRN (04:32)
[2020-07-14] MEDS ORDERED: Acetaminophen 325 MG TAB PO PRN (04:32)
--- NOTE | 2020-07-14 04:36 | PDOC.HHP ---
Hospitalist HPI - History of Present Illness abdominal pain chills History of Present Illness: Case of an 75y/o female with a pmhx of cad, dm, htn and ovarian cancer been follow by [facility] who comes to hospital due distended abdomen and chills. patient refers she was on her usual state of health until today when she began with abdominal pain and chills, patient with a recent admission due to chest pain on 06/19 where she was treated conservatively. At the ED patient was evaluated and a thoracenthesis was done where they removed 4L of fluid. patient found with a uti for which hospitalist was called for further evaluation and management. patient denies fever nausea or vomiting Hospitalist ROS - Review of Systems All other systems reviewed; all pertinent +/- noted in HPI/Subj Hospitalist History - Past Surgical History Past Surgical History: reports: CABG - Family History Family History: reports: no pertinent history - Social History Alcohol: reports: None Drugs: reports: none - Exam General Appearance: NAD, awake alert Eye: PERRL, anicteric sclera ENT: normocephalic atraumatic, no oropharyngeal lesions Neck: supple, symmetric, no JVD Heart: RRR, no murmur, no gallops Respiratory: CTAB, no wheezes, no rales, no ronchi Gastrointestinal: soft, normal bowel sounds, tender to palpation, distended Extremities: no cyanosis, no clubbing, no edema Skin: normal turgor, no lesions, no rashes Neurological: cranial nerve grossly intact, normal sensation to touch, no weakness Musculoskeletal: normal tone, normal strength, no muscle wasting Psychiatric: normal affect, normal behavior, A&O x 3 Hospitalist Results - Labs Result Diagrams: 07/13/20 17:00 07/13/20 17:00 Lab results: WBC 8.5 thou/uL (4.8-10.8) 07/13/20 17:00 Hgb 11.8 g/dL (12.0-16.0) L 07/13/20 17:00 Hct 34.0 % (36.0-47.0) L 07/13/20 17:00 MCV 95.2 fL (78.0-98.0) 07/13/20 17:00 Plt Count 173 thou/uL (130-400) 07/13/20 17:00 Neutrophils % 91.2 % (42.0-75.0) H 07/13/20 17:00 Sodium 130 mmol/L (136-145) L 07/13/20 17:00 Potassium 3.6 mmol/L (3.5-5.1) 07/13/20 17:00 Chloride 94 mmol/L (98-107) L 07/13/20 17:00 Carbon Dioxide 24 mmol/L (23-31) 07/13/20 17:00 BUN 14 mg/dL (9.8-20.1) 07/13/20 17:00 Creatinine 1.06 mg/dL (0.6-1.1) 07/13/20 17:00 Glucose 97 mg/dL (83-110) 07/13/20 17:00 Lactic Acid 1.6 mmol/L (0.5-2.2) 07/13/20 17:00 Calcium 8.3 mg/dL (7.8-10.44) 07/13/20 17:00 Total Bilirubin 1.8 mg/dL (0.2-1.2) H 07/13/20 17:00 AST 83 U/L (5-34) H 07/13/20 17:00 ALT 38 U/L (8-55) 07/13/20 17:00 Alkaline Phosphatase 211 U/L (40-110) H 07/13/20 17:00 Serum Total Protein 6.4 g/dL (6.0-8.3) 07/13/20 17:00 Albumin 3.2 g/dL (3.4-4.8) L 07/13/20 17:00 Urine Ketones Negative mg/dL (Negative) 07/13/20: Urine Blood Trace (Negative) A 07/13/20:20 Urine Nitrite Negative (Negative) 07/13/20:20 Ur Leukocyte Esterase 500 Corina/uL (Negative) A 07/13/20: Urine RBC 0-3 HPF (0-3) 07/13/20:20 Urine WBC Greater than 50 HPF (0-3) A 07/13/20:20 Ur Squamous Epith Cells None Seen HPF (0-3) 07/13/20:20 Urine Bacteria 2+ HPF (None Seen) A 07/13/20 17:20 Hospitalist H&P A/P - Problem (1) UTI (urinary tract infection) Status: Acute (2) Ascites Code(s): R18.8 - OTHER ASCITES Status: Acute (3) Adnexal mass Code(s): N94.89 - OTH COND ASSOC W FEMALE GENITAL ORGANS AND MENSTRUAL CYCLE Status: Acute (4) CAD (coronary artery disease) Code(s): I25.10 - ATHSCL HEART DISEASE OF [place] CORONARY ARTERY W/O ANG PCTRS Status: Chronic (5) Diabetes type 2, controlled Code(s): E11.9 - TYPE 2 DIABETES MELLITUS WITHOUT COMPLICATIONS Status: Chronic (6) Dyslipidemia Code(s): E78.5 - HYPERLIPIDEMIA, UNSPECIFIED Status: Chronic - Plan Plan: Case of an 75y/o male with the stated pmhx who presents with ascites and uti uti - will start rocephin - f/u cultures ascietes - throcenthesis done at the ed - 4L where removed - recent hospitalization where they removed 3L - abdominal pain improved after thoracenthesis cad / ovarian ca / htn / hld - continue home meds
[2020-07-14] MEDS: cefTRIAXone\\ROCEPHIN 2 GM in Sodium Chloride 0.9% 100 ML IVPB SCH (05:41)
[2020-07-14 08:25] LABS: SARS-CoV-2 MS2 Positive; SARS-CoV-2 N Gene Negative; SARS-CoV-2 S Gene Negative; SARS-CoV-2 by NAA Not Detected (NotDetected); SARS-CoV-2 orf1ab Negative
[2020-07-14] MEDS: Enoxaparin Sodium 40 MG/0.4 ML SYRINGE SC SCH (08:40)
[2020-07-14] MEDS ORDERED: traMADol HCl 50 MG TAB PO PRN (11:09)
[2020-07-14] MEDS: hydrALAZINE 25 MG TAB PO SCH ×2 (15:31→21:19)
[2020-07-14] MEDS: Carvedilol 6.25 MG TAB PO SCH (15:31)
[2020-07-14] MEDS ORDERED: Ondansetron PF 4 MG/2 ML Vial IVP PRN (16:31)
[2020-07-14] MEDS ORDERED: Ondansetron PF 4 MG/2 ML Vial IVP SCH (16:45)
--- NOTE | 2020-07-14 16:54 | PDOC.HOSPP ---
- Subjective Encounter Date: 07/14/20 Encounter Time: 16:25 Subjective: f/u abd/chest pain s/p paracentesis with 4L ascites removed. - Objective Vital Signs & Weight: Vital Signs (12 hours) Temp Pulse Resp BP Pulse Ox 07/14/20 16:00 98.3 F 75 18 130/61 96 07/14/20 15:31 70 07/14/20 12:00 97.9 F 70 16 100/50 L 97 07/14/20 08:00 97.6 F 71 16 133/68 98 Weight Weight 109 lb 8 oz I&O: 07/13/20 07/14/20 07/15/20 06:59 06:59 06:59 Intake Total 110 Output Total 450 Balance -340 Result Diagrams: 07/13/20 17:00 07/13/20 17:00 Additional Labs: Accuchecks 07/14/20 11:22 POC Glucose 118 H Microbiology 07/13/20 17:20 Urine Straight Catheter Urine Culture - Preliminary Escherichia coli 07/13/20 17:17 Venous blood - Left Hand Blood Culture - Preliminary Specimen has been received and culture in progress. No Growth to date. 07/13/20 17:00 Venous blood - Right Hand Blood Culture - Preliminary Specimen has been received and culture in progress. No Growth to date. Laboratory Tests 12/13/19 06/19/20 06/20/20 03:54 02:16 05:37 Lactic Acid Total Bilirubin 2.0 H 1.5 H AST 38 H 35 H 25 Alkaline Phosphatase 119 H 83 SARS-CoV-2 (PCR) 07/13/20 07/13/20 07/14/20 17:00 17:00 00:50 Lactic Acid 1.6 Total Bilirubin 1.8 H AST 83 H Alkaline Phosphatase 211 H SARS-CoV-2 (PCR) Not Detected Radiology Reviewed by me: Yes (Echo - EF 55% (07/08)) Hospitalist ROS - Medication Medications: Active Medications Generic Name Dose Route Start Last Admin Trade Name Freq PRN Reason Stop Dose Admin Carvedilol 6.25 mg 07/14/20 17:00 07/14/20 15:31 Carvedilol 6.25 Mg Tab PO 6.25 mg BID-WM TIMMY Administration Enoxaparin Sodium 40 mg 07/14/20 09:00 07/14/20 08:40 Enoxaparin Sodium 40 Mg/0.4 Ml Syringe SC 40 mg 0900 TIMMY Administration Hydralazine HCl 25 mg 07/14/20 15:00 07/14/20 15:31 Hydralazine 25 Mg Tab PO 25 mg TID TIMMY Administration Ceftriaxone Sodium 2 gm/ 100 mls @ 200 mls/hr 07/14/20 05:00 07/14/20 05:41 Sodium Chloride IVPB 100 mls Q24HR TIMMY Administration - Exam General Appearance: NAD, awake alert Eye: PERRL, anicteric sclera ENT: normocephalic atraumatic, no oropharyngeal lesions Neck: supple, symmetric, no JVD, no thyromegaly, no lymphadenopathy Heart: RRR, no murmur, no gallops, no rubs, normal peripheral pulses Heart - other findings: S1, S2 Respiratory: no wheezes, no ronchi, normal chest expansion, no tachypnea Respiratory - other findings: diminished in bases Gastrointestinal: no palpable masses, no rigidity Gastrointestinal - other findings: mild distention, mild TTP diffusely Extremities: no cyanosis, no clubbing, no edema Skin: normal turgor, no lesions Neurological: no new deficit Neurological - other findings: hearing deficit(chronic) Musculoskeletal: normal tone, generalized weakness Psychiatric: oriented to person, oriented to place Hosp A/P (1) UTI (urinary tract infection) Status: Acute Plan: E. coli isolated preliminarily, continue Rocephin (2) Ascites Code(s): R18.8 - OTHER ASCITES Status: Acute Plan: Suspected due to malignant process, followed by [facility] as outpt, s/p 4L removed today (3) Adnexal mass Code(s): N94.89 - OTH COND ASSOC W FEMALE GENITAL ORGANS AND MENSTRUAL CYCLE Status: Acute Plan: Suspected malignant process, see above (4) Hyponatremia Code(s): E87.1 - HYPO-OSMOLALITY AND HYPONATREMIA Status: Acute Plan: Likely chronic when reviewing EMR, serial monitoring (5) Anemia, normocytic normochromic Code(s): D64.9 - ANEMIA, UNSPECIFIED Status: Chronic (6) CAD (coronary artery disease) Code(s): I25.10 - ATHSCL HEART DISEASE OF [place] CORONARY ARTERY W/O ANG PCTRS Status: Chronic (7) Deafness Code(s): H91.90 - UNSPECIFIED HEARING LOSS, UNSPECIFIED EAR Status: Chronic Qualifiers: Laterality: bilateral Qualified Code(s): H91.93 - Unspecified hearing loss, bilateral (8) Diabetes type 2, controlled Code(s): E11.9 - TYPE 2 DIABETES MELLITUS WITHOUT COMPLICATIONS Status: Chronic Plan: ISS, hold Metformin due to abd pain - Plan continue antibiotics, PT/OT, manager social work, respiratory therapy, out of bed/ambulate, DVT proph w/SCDs Stable currently Start Viscous Lidocaine//Maalox Zofran 4mg IV q6h PRN Continue Rocephin 2gm IV daily Await final cx from paracentesis AM lab: CMP, CBC
[2020-07-14] MEDS ORDERED: Lidocaine 2% Viscous Solution 20 ML, Aluminum & Magnesium Hydroxide 30 ML, Donnatal Eli... SSW SCH (17:00)
[2020-07-15] MEDS: cefTRIAXone\\ROCEPHIN 2 GM in Sodium Chloride 0.9% 100 ML IVPB SCH (04:41)
[2020-07-15 05:07] LABS: Band 8 % (5-11); Hemoglobin 10.4 g/dL (12.0-16.0); Hypochromia SLIGHT = 6-15 cells (100X) (0-5/hpf); Lymphocytes 12 % (21-51); MDiff Complete? YES; Mean Corpuscular HGB CONC 33.4 g/dL (32.0-36.0); Mean Corpuscular Hemoglobin 31.5 pg (27.0-31.0); Mean Corpuscular Volume 94.5 fL (78.0-98.0); Mean Platelet Volume 8.2 fL (7.4-10.4); Monocytes 2 % (0-10); Neutrophil 78 % (42-75); Platelet Count 132 thou/uL (130-400); Platelet Morphology Comment Appears Adequate; RBC Distribution Width 11.3 % (11.5-14.5); White Blood Cell (WBC) Count 3.6 thou/uL (4.8-10.8)
[2020-07-15 05:16] LABS: ALT (SGPT) 27 U/L (8-55); AST (SGOT) 47 U/L (5-34); Albumin 2.4 g/dL (3.4-4.8); Alkaline Phosphatase 103 U/L (40-110); Anion Gap 11 mmol/L (10-20); BUN (Urea Nitrogen) 13 mg/dL (9.8-20.1); Bilirubin, Total 0.5 mg/dL (0.2-1.2); Calc. Creatinine Clearance 42 mL/min (70-130); Calcium 7.4 mg/dL (7.8-10.44); Carbon Dioxide 25 mmol/L (23-31); Chloride 101 mmol/L (98-107); Globulin 2.4 g/dL (2.4-3.5); Glucose 91 mg/dL (83-110); Potassium 3.7 mmol/L (3.5-5.1); Protein, Total 4.8 g/dL (6.0-8.3); Sodium 133 mmol/L (136-145)
[2020-07-15] MEDS: Clopidogrel Bisulfate 75 MG TAB PO SCH (08:52)
[2020-07-15] MEDS: Enoxaparin Sodium 40 MG/0.4 ML SYRINGE SC SCH (08:52)
[2020-07-15] MEDS: hydrALAZINE 25 MG TAB PO SCH ×3 (08:52→19:39)
[2020-07-15] MEDS: Amlodipine 5 MG TAB PO SCH (08:52)
[2020-07-15] MEDS: Carvedilol 6.25 MG TAB PO SCH ×2 (08:52→16:37)
[2020-07-15] MEDS: Furosemide 40 MG TAB PO SCH (08:52)
--- NOTE | 2020-07-15 13:10 | PDOC.HOSPP ---
- Subjective Encounter Date: 07/15/20 Encounter Time: 13:00 Subjective: f/u for abd/chest pain related to UTI with E. coli spp treated wtih Rocephin and ascites s/p 4L removed. Overall feels better today. - Objective Vital Signs & Weight: Vital Signs (12 hours) Temp Pulse Resp BP BP Pulse Ox 07/15/20 08:52 65 138/63 07/15/20 07:35 97.5 F L 65 16 126/59 L 97 Weight Weight 109 lb 8 oz I&O: 07/14/20 07/15/20 07/16/20 06:59 06:59 06:59 Intake Total 660 Output Total 1200 Balance -540 Result Diagrams: 07/15/20 04:40 07/15/20 04:40 Additional Labs: Accuchecks 07/15/20 07/14/20 07/14/20 10:56 20:16 18:48 POC Glucose 159 H 113 H 110 H Microbiology 07/13/20 17:20 Urine Straight Catheter Urine Culture - Preliminary Escherichia coli 07/13/20 17:20 Urine Straight Catheter Urine Culture - Preliminary Escherichia coli 07/13/20 17:17 Venous blood - Left Hand Blood Culture - Preliminary Specimen has been received and culture in progress. No Growth to date. 07/13/20 17:17 Venous blood - Left Hand Blood Culture - Preliminary NO GROWTH AT 48 HOURS 07/13/20 17:00 Venous blood - Right Hand Blood Culture - Preliminary Specimen has been received and culture in progress. No Growth to date. 07/13/20 17:00 Venous blood - Right Hand Blood Culture - Preliminary NO GROWTH AT 48 HOURS Laboratory Tests 12/13/19 06/19/20 06/20/20 03:54 02:16 05:37 Lactic Acid Total Bilirubin 2.0 H 1.5 H AST 38 H 35 H 25 Alkaline Phosphatase 119 H 83 SARS-CoV-2 (PCR) 07/13/20 07/13/20 07/14/20 17:00 17:00 00:50 Lactic Acid 1.6 Total Bilirubin 1.8 H AST 83 H Alkaline Phosphatase 211 H SARS-CoV-2 (PCR) Not Detected Hospitalist ROS - Medication Medications: Active Medications Generic Name Dose Route Start Last Admin Trade Name Freq PRN Reason Stop Dose Admin Amlodipine Besylate 7.5 mg 07/15/20 09:00 07/15/20 08:52 Amlodipine 5 Mg Tab PO 7.5 mg DAILY TIMMY Administration Carvedilol 6.25 mg 07/14/20 17:00 07/15/20 08:52 Carvedilol 6.25 Mg Tab PO 6.25 mg BID- TIMMY Administration Clopidogrel Bisulfate 75 mg 07/15/20 09:00 07/15/20 08:52 Clopidogrel Bisulfate 75 Mg Tab PO 75 mg DAILY TIMMY Administration Enoxaparin Sodium 40 mg 07/14/20 09:00 07/15/20 08:52 Enoxaparin Sodium 40 Mg/0.4 Ml Syringe SC 40 mg 0900 TIMMY Administration Furosemide 40 mg 07/15/20 09:00 07/15/20 08:52 Furosemide 40 Mg Tab PO 40 mg DAILY TIMMY Administration Hydralazine HCl 25 mg 07/14/20 15:00 07/15/20 08:52 Hydralazine 25 Mg Tab PO 25 mg TID TIMMY Administration Ceftriaxone Sodium 2 gm/ 100 mls @ 200 mls/hr 07/14/20 05:00 07/15/20 04:41 Sodium Chloride IVPB 100 mls Q24HR TIMMY Administration Isosorbide Mononitrate 30 mg 07/15/20 09:00 07/15/20 08:52 Isosorbide Mononitrate Er 30 Mg Tab PO 30 mg DAILY [facility] Administration Pantoprazole Sodium 40 mg 07/15/20 09:00 07/15/20 08:52 Pantoprazole 40 Mg Tab PO 40 mg DAILY TIMMY Administration Tramadol HCl 50 mg 07/14/20 11:09 07/14/20 23:21 Tramadol Hcl 50 Mg Tab PO 50 mg QIDPRN PRN Administration Moderate Pain (4-6) - Exam General Appearance: NAD, awake alert Eye: PERRL, anicteric sclera ENT: normocephalic atraumatic, no oropharyngeal lesions Neck: supple, symmetric, no JVD, no thyromegaly, no lymphadenopathy Heart: RRR, no gallops, no rubs, normal peripheral pulses Heart - other findings: S1, S2 Respiratory: CTAB, no wheezes, no rales, no ronchi, normal chest expansion, no tachypnea Gastrointestinal: normal bowel sounds, no palpable masses, no guarding, no rigidity Gastrointestinal - other findings: mild distention, fluid wave noted Extremities: no cyanosis, no clubbing, no edema Skin: normal turgor, no lesions Neurological: cranial nerve grossly intact, no new deficit Neurological - other findings: hearing deficit(chronic) Musculoskeletal: normal tone, generalized weakness Psychiatric: normal affect, A&O x 3 Hosp A/P (1) UTI (urinary tract infection) Status: Acute Plan: E. coli spp isolated, continue Rocephin IV another 24h then convert to po (2) Ascites Code(s): R18.8 - OTHER ASCITES Status: Acute Plan: s/p paracentesis with 4L removed, continue supportive mgmt, outpt follow up [facility] (3) Adnexal mass Code(s): N94.89 - OTH COND ASSOC W FEMALE GENITAL ORGANS AND MENSTRUAL CYCLE Status: Acute Plan: Outpt follow up with [facility] (4) Hyponatremia Code(s): E87.1 - HYPO-OSMOLALITY AND HYPONATREMIA Status: Acute (5) Anemia, normocytic normochromic Code(s): D64.9 - ANEMIA, UNSPECIFIED Status: Chronic (6) CAD (coronary artery disease) Code(s): I25.10 - ATHSCL HEART DISEASE OF [place] CORONARY ARTERY W/O ANG PCTRS Status: Chronic (7) Deafness Code(s): H91.90 - UNSPECIFIED HEARING LOSS, UNSPECIFIED EAR Status: Chronic Qualifiers: Laterality: bilateral Qualified Code(s): H91.93 - Unspecified hearing loss, bilateral (8) Diabetes type 2, controlled Code(s): E11.9 - TYPE 2 DIABETES MELLITUS WITHOUT COMPLICATIONS Status: Chronic - Plan continue antibiotics, 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
[2020-07-15 19:17] VITALS: TEMP 97.8
[2020-07-16] MEDS: cefTRIAXone\\ROCEPHIN 2 GM in Sodium Chloride 0.9% 100 ML IVPB SCH (04:07)
[2020-07-16 04:47] LABS: #Eosinphils 0.1 thou/uL (0.0-0.7); #Lymphocytes 0.9 thou/uL (1.20-3.40); #Monocytes 0.2 thou/uL (0.11-0.59); #Neutrophils 2.4 thou/uL (1.40-6.50); %Eosinophils 1.6 % (0.0-10.0); %Lymphocytes 24.9 % (21.0-51.0); %Neutrophils 67.4 % (42.0-75.0); Hemoglobin 10.5 g/dL (12.0-16.0); Mean Corpuscular HGB CONC 33.2 g/dL (32.0-36.0); Mean Corpuscular Hemoglobin 31.4 pg (27.0-31.0); Mean Corpuscular Volume 94.6 fL (78.0-98.0); Platelet Count 175 thou/uL (130-400); RBC Distribution Width 11.2 % (11.5-14.5); Red Blood Cell (RBC) Count 3.35 mill/uL (4.20-5.40); White Blood Cell (WBC) Count 3.5 thou/uL (4.8-10.8)
--- NOTE | 2020-07-16 07:50 | PDOC.HOSPP ---
- Subjective Encounter Date: 07/16/20 Encounter Time: 10:15 Subjective: Patient feeling better. Abdomen feels a little bloated and gassy after eating, but pain from admission resolved. Ready to go home. - Objective Vital Signs & Weight: Weight Weight 109 lb 8 oz I&O: 07/15/20 07/16/20 07/17/20 06:59 06:59 06:59 Intake Total 660 300 Output Total 1200 550 Balance -540 -250 Result Diagrams: 07/16/20 04:14 07/15/20 04:40 Additional Labs: Accuchecks 07/16/20 07/15/20 07/15/20 06:12 20:21 10:56 POC Glucose 83 128 H 159 H Hospitalist ROS - Review of Systems Constitutional: denies: fever, chills Respiratory: denies: cough, shortness of breath Cardiovascular: denies: chest pain, palpitations Gastrointestinal: denies: nausea, vomiting, abdominal pain - Medication Medications: Active Medications Generic Name Dose Route Start Last Admin Trade Name Freq PRN Reason Stop Dose Admin Hydrocodone Bitart/Acetaminophen 1 tab 07/14/20 11:09 07/15/20 20:30 Hydrocodone/Acetaminophen 5/325 Mg Tablet PO 1 tab Q4H PRN Administration Moderate Pain (4-6) Amlodipine Besylate 7.5 mg 07/15/20 09:00 07/15/20 08:52 Amlodipine 5 Mg Tab PO 7.5 mg DAILY TIMMY Administration Carvedilol 6.25 mg 07/14/20 17:00 07/15/20 16:37 Carvedilol 6.25 Mg Tab PO Not Given BID-[facility] Clopidogrel Bisulfate 75 mg 07/15/20 09:00 07/15/20 08:52 Clopidogrel Bisulfate 75 Mg Tab PO 75 mg DAILY TIMMY Administration Enoxaparin Sodium 40 mg 07/14/20 09:00 07/15/20 08:52 Enoxaparin Sodium 40 Mg/0.4 Ml Syringe SC 40 mg 0900 TIMMY Administration Furosemide 40 mg 07/15/20 09:00 07/15/20 08:52 Furosemide 40 Mg Tab PO 40 mg DAILY TIMMY Administration Hydralazine HCl 25 mg 07/14/20 15:00 07/15/20 19:39 Hydralazine 25 Mg Tab PO Not Given TID TIMMY Isosorbide Mononitrate 30 mg 07/15/20 09:00 07/15/20 08:52 Isosorbide Mononitrate Er 30 Mg Tab PO 30 mg DAILY TIMMY Administration Pantoprazole Sodium 40 mg 07/15/20 09:00 07/15/20 08:52 Pantoprazole 40 Mg Tab PO 40 mg DAILY TIMMY Administration Tramadol HCl 50 mg 07/14/20 11:09 07/14/20 23:21 Tramadol Hcl 50 Mg Tab PO 50 mg QIDPRN PRN Administration Moderate Pain (4-6) - Exam General Appearance: NAD, awake alert ENT: moist mucosa Heart: RRR, no murmur, no gallops, no rubs Respiratory: CTAB, no wheezes, no rales, no ronchi Gastrointestinal: soft, non-tender, normal bowel sounds, distended Psychiatric: normal affect, normal behavior, A&O x 3 Hosp A/P - Plan (1) UTI (urinary tract infection) Status: Acute Plan: E. coli spp isolated, switch from Rocephin IV to oral Nitrofurantolin for discharge (2) Ascites Code(s): R18.8 - OTHER ASCITES Status: Acute Plan: s/p paracentesis with 4L removed, continue supportive mgmt, outpt follow up [facility] (3) Adnexal mass Code(s): N94.89 - OTH COND ASSOC W FEMALE GENITAL ORGANS AND MENSTRUAL CYCLE Status: Acute Plan: Outpt follow up with [facility] (4) Hyponatremia Code(s): E87.1 - HYPO-OSMOLALITY AND HYPONATREMIA Status: Acute (5) Anemia, normocytic normochromic Code(s): D64.9 - ANEMIA, UNSPECIFIED Status: Chronic (6) CAD (coronary artery disease) Code(s): I25.10 - ATHSCL HEART DISEASE OF [place] CORONARY ARTERY W/O ANG PCTRS Status: Chronic (7) Deafness Code(s): H91.90 - UNSPECIFIED HEARING LOSS, UNSPECIFIED EAR Status: Chronic Qualifiers: Laterality: bilateral Qualified Code(s): H91.93 - Unspecified hearing loss, bilateral (8) Diabetes type 2, controlled Code(s): E11.9 - TYPE 2 DIABETES MELLITUS WITHOUT COMPLICATIONS Status: Chronic Patient stable for d/c home today with home health for PT.
[2020-07-16] MEDS: Clopidogrel Bisulfate 75 MG TAB PO SCH (08:43)
[2020-07-16] MEDS: Carvedilol 6.25 MG TAB PO SCH (08:45)
[2020-07-16] MEDS: hydrALAZINE 25 MG TAB PO SCH (08:46)
[2020-07-16] MEDS: Enoxaparin Sodium 40 MG/0.4 ML SYRINGE SC SCH (08:47)
[2020-07-16] MEDS: Furosemide 40 MG TAB PO SCH (08:47)
[2020-07-16] MEDS ORDERED: Nitrofurantoin Monohyd/M-Cryst 100 MG CAP PO SCH (09:00)
[2020-07-16 11:06] VITALS: BP 100/53
[2020-07-16] MEDS: Amlodipine 5 MG TAB PO SCH (11:06)
--- NOTE | 2020-07-16 14:35 | DIS ---
DATE OF ADMISSION: 07/14/2020 DATE OF DISCHARGE: 07/16/2020 PRIMARY CARE PHYSICIAN: Jacki Jasmine. REASON FOR ADMISSION: Urinary tract infection and ascites. DIAGNOSES AT DISCHARGE: 1. Urinary tract infection. 2. Ascites, status post 4 L paracentesis. 3. Adnexal mass. 4. Hyponatremia. 5. Anemia. 6. Coronary artery disease. 7. Deafness. 8. Diabetes mellitus type 2. PROCEDURES: None. CONSULTATIONS: None. SUMMARY OF HOSPITAL COURSE: This is a 75-year-old white female with a history of ovarian cancer, followed by [facility], who came into the hospital due to distended abdomen and chills. She was found to have a very tense abdomen, had 4 L removed down in the emergency room with resolution of all of her symptoms. She was noted to have a UTI. No elevated white blood cell count or fevers noted. She was admitted to the hospital, was treated with Rocephin with improvement in how she felt. She had no further chills, no fevers, no elevated white blood cell count. Her urine did grow back E coli that was pansensitive so she was switched from Rocephin to nitrofurantoin and is being discharged home. DISCHARGE MANAGEMENT: Discharged home with Home Health for physical therapy. ACTIVITY: As tolerated. DIET: Diabetic, healthy-heart diet. FOLLOWUP: Follow up with Jacki Jasmine in the next week and with her [facility] as directed. DISCHARGE MEDICATIONS: 1. Nitrofurantoin 100 mg twice a day, 14 capsules dispensed. 2. Amlodipine 7.5 mg daily. 3. Carvedilol 6.25 mg twice a day. 4. Clopidogrel 75 mg daily. 5. Furosemide 40 mg daily. 6. Hydralazine 25 mg 3 times a day. 7. [place] 5/325 mg one tablet every 4 hours as needed. 8. Isosorbide mononitrate extended release 30 mg daily. 9. Protonix 40 mg daily. 10. Tramadol 50 mg 4 times a day as needed for pain. 11. Atorvastatin 40 mg at night. 12. Lisinopril 5 mg daily. 13. Metformin extended release 500 mg daily. Job ID: [id number] [facility]
--- NOTE | 2020-07-19 04:23 | PQF ---
CLINICAL DOCUMENTATION CLARIFICATION FORM: Dear : Ketan Lau Date / Time: 07/19/2020 042 Please exercise your independent, professional judgment in responding to the clarification form. Clinical indicators are provided on the bottom of this form for your review In your clinical opinion based on clinical findings below, can you please identify the etiology of Ascites if due to: Please check appropriate box(es): [ ] Ovarian Cancer [ ] UTI [ ] Other diagnosis, please specify [ ] Unable to determine Physician Signature: Date/Time: For continuity of documentation, please document condition throughout progress notes and discharge summary. Thank You. To be completed by CDI/Coding staff for physician review: Present Clinical Indicators - Signs / Symptoms / Labs Results and Location in Medical Record [X] Urinalysis: pH5.5, Trace blood, Leukocyte esterase 500, Bacteria 2+ Laboratory 07/13 [X] Urine culture: Escherichia Coli Microbiology 07/13 [X] BP 139/63, pulse 77, Resp 18, Temp 98.4 Vital signs 07/13 [X] presents due to distended abdomen and chills H&P p1 07/14 Dr Inga Mancilla [X] Presents with ascites and UTI H&P p3 07/14 Dr Trejo [X] Ascites suspected malignant process HPN p4 07/14 Dr Bennett Present Risk Factors Results and Location in Medical Record [X] 75 year-old Female H&P p1 07/14 Dr Trejo [X] HTN H&P p1 07/14 Dr Trejo [X] DM H&P p1 07/14 Dr Trejo [X] Ovarian cancer H&P p1 07/14 Dr Trejo [X] UTI H&P p3 07/14 Dr Trejo Present Treatments Results and Location in Medical Record [X] IV Vancomycin 1 gm OCT 27 [X] IVF NS 1L OCT 27 [X] IV Ceftriaxone 2 gm OCT 27 [X] Paracentesis ED procedure 07/13 [facility] Assistant Signature: Geovanna Hager Phone #: [phone] Date/Time: 07/19/2020 0428 This is a permanent part of the Medical Record [facility]
--- NOTE | 2020-07-23 15:18 | EKG ---
Test Reason : Blood Pressure : / mmHG Vent. Rate : 090 BPM Atrial Rate : 090 BPM P-R Int : 126 ms QRS Dur : 072 ms QT Int : 354 ms P-R-T Axes : 059 043 228 degrees QTc Int : 433 ms Normal sinus rhythm Possible Left atrial enlargement Abnormal ECG Confirmed by BIRGIT OLIVARES ([id number]), assistant editor AMRITA MOON ([id number]) on 07/23/2020 3:18:06 PM Referred By: Ketan Pruitt Confirmed By:BIRGIT Elaine
== END 2020-07-16 13:34 | disposition home health service (06) | DRG 690 ==
LOC: ERS 16:23 → ONC 07-14 00:05
PROVIDERS: ADMIT Internal Medicine; ATTEND Internal Medicine
PROC: 0W9G3ZZ Drainage of Peritoneal Cavity, Percutaneous Approach (ICD-10-PCS; principal; 2020-07-14)
DX: N39.0 Urinary tract infection, site not specified (principal); R18.8 Other ascites; E87.1 Hypo-osmolality and hyponatremia; C56.9 Malignant neoplasm of unspecified ovary; D64.9 Anemia, unspecified; I25.10 Atherosclerotic heart disease of native coronary artery without angina pectoris; E11.9 Type 2 diabetes mellitus without complications; Z20.828 Contact with and (suspected) exposure to other viral communicable diseases; K21.9 Gastro-esophageal reflux disease without esophagitis; N94.89 Other specified conditions associated with female genital organs and menstrual cycle; H91.93 Unspecified hearing loss, bilateral; B96.20 Unspecified Escherichia coli [E. coli] as the cause of diseases classified elsewhere; Z79.899 Other long term (current) drug therapy; Z23 Encounter for immunization; Z95.1 Presence of aortocoronary bypass graft; Z79.84 Long term (current) use of oral hypoglycemic drugs
CPT/HCPCS: 36415; 36416; 49083; 51701; 71045; 80053; 81003; 81015; 82140; 83605; 85007; 85025; 85027; 87040; 87077; 87086; 87186; 87635; 90471; 90732; 93005; 96365; 96366; 96367; G0009; J0692; J0696; J1650; J2405; J3370; J3490; U0003

== ENCOUNTER 2020-10-12 09:24 | Day surgery (SDC) | payer MEDICARE, MEDICAID ==
[~2020-10-12 09:24] MED LIST: FLU VACC QS2020-21(65YR UP)/PF 240 MCG/0.7 ML SYRINGE IM ONE
[2020-10-12 09:59] LABS: Hemoglobin 10.6 g/dL (12.0-16.0); Mean Corpuscular HGB CONC 32.6 g/dL (32.0-36.0); Mean Corpuscular Hemoglobin 31.9 pg (27.0-31.0); Mean Corpuscular Volume 97.6 fL (78.0-98.0); Mean Platelet Volume 7.5 fL (7.4-10.4); Platelet Count 196 thou/uL (130-400); RBC Distribution Width 11.9 % (11.5-14.5); Red Blood Cell (RBC) Count 3.34 mill/uL (4.20-5.40); White Blood Cell (WBC) Count 3.4 thou/uL (4.8-10.8)
[2020-10-12 10:04] LABS: PTT 26.7 sec (22.9-36.1); Prothrombin Time 13.8 sec (12.0-14.7)
[2020-10-12] MEDS ORDERED: Lidocaine 1% PF 5 ML VIAL ONE (10:12)
[2020-10-12] MEDS ORDERED: Sodium Bicarbonate 2.5 MEQ/5 ML VIAL ONE (10:12)
[2020-10-12 10:26] LABS: Band 14 % (5-11); Eosinophils 2 % (0-10); Lymphocytes 17 % (21-51); MDiff Complete? YES; Monocytes 5 % (0-10); Neutrophil 60 % (42-75); Ovalocytes SLIGHT = 2-5 cells (100X) (0-1/hpf); Platelet Morphology Comment Appears Adequate; Polychromasia SLIGHT = 2-3 cells (100X) (0-2/hpf)
[2020-10-12 11:31] VITALS: TEMP 98
[2020-10-12 11:33] VITALS: BMI 23.4
[2020-10-12 11:35] VITALS: BP 139/63
--- NOTE | 2020-10-12 13:15 | ULT ---
Ultrasound-guided paracentesis: HISTORY: Recurrent ascites. FINDINGS: Informed consent obtained prior to the procedure. Preprocedural imaging demonstrated intrap eritoneal free fluid. An area was marked in the Right lower quadrant , and then meticulously prepped and draped in normal s terile fashion and anesthetized with 1% buffered lidocaine. With direct sonographic guidance, a 19-gauge needle and 5 [place] Yueh catheter were advanced into the abdomen. After the return of fluid, the catheter was advanced, and the needle was removed. Approximately 4 L of clear straw-colored fluid was aspirated. The introducer sheath was removed, and hemostasis was achieved with direct pressure. A dry sterile dressing was placed. The patient tolerated the procedure well and without immediate complication. IMPRESSION: Technically successful ultrasound-guided paracentesis.
== END 2020-10-12 11:20 | disposition home or self-care (01) ==
LOC: ULT 09:24
PROVIDERS: ATTEND Obstetrics & Gynecology Gynecologic Oncology
PROC: 0W9G3ZZ Drainage of Peritoneal Cavity, Percutaneous Approach (ICD-10-PCS; principal; 2020-10-12)
DX: K74.60 Unspecified cirrhosis of liver (principal); R18.8 Other ascites; J44.9 Chronic obstructive pulmonary disease, unspecified; E11.9 Type 2 diabetes mellitus without complications; I11.0 Hypertensive heart disease with heart failure; I50.9 Heart failure, unspecified; K21.9 Gastro-esophageal reflux disease without esophagitis; I42.9 Cardiomyopathy, unspecified; I25.10 Atherosclerotic heart disease of native coronary artery without angina pectoris; I70.0 Atherosclerosis of aorta; Z79.02 Long term (current) use of antithrombotics/antiplatelets; Z79.2 Long term (current) use of antibiotics; Z79.84 Long term (current) use of oral hypoglycemic drugs; Z79.899 Other long term (current) drug therapy; Z91.012 Allergy to eggs; Z95.1 Presence of aortocoronary bypass graft
CPT/HCPCS: 49083; 85025; 85610; 85730

== ENCOUNTER 2020-10-27 10:15 | Day surgery (SDC) | payer MEDICARE, MEDICAID ==
[2020-10-27] MEDS ORDERED: Lidocaine 1% PF 5 ML VIAL ONE (10:34)
[2020-10-27] MEDS ORDERED: Sodium Bicarbonate 2.5 MEQ/5 ML VIAL ONE (10:34)
[2020-10-27 11:59] VITALS: BP 171/86; TEMP 98.1
== END 2020-10-27 11:25 | disposition home or self-care (01) ==
LOC: ULT 10:15
PROVIDERS: ATTEND Obstetrics & Gynecology Gynecologic Oncology
PROC: 0W9G3ZZ Drainage of Peritoneal Cavity, Percutaneous Approach (ICD-10-PCS; principal; 2020-10-27)
DX: K74.60 Unspecified cirrhosis of liver (principal); R18.8 Other ascites; J44.9 Chronic obstructive pulmonary disease, unspecified; I11.0 Hypertensive heart disease with heart failure; I50.9 Heart failure, unspecified; E11.9 Type 2 diabetes mellitus without complications; K21.9 Gastro-esophageal reflux disease without esophagitis; Z79.02 Long term (current) use of antithrombotics/antiplatelets; Z79.84 Long term (current) use of oral hypoglycemic drugs; Z79.899 Other long term (current) drug therapy; Z91.012 Allergy to eggs; Z95.1 Presence of aortocoronary bypass graft
CPT/HCPCS: 49083

== ENCOUNTER 2020-10-27 11:39 | Emergency (ER) | payer MEDICARE, MEDICAID | END 2020-10-27 13:09 | disposition home or self-care (01) | LOC: ERS 11:39 | DX: L03.116 Cellulitis of left lower limb (principal); L03.115 Cellulitis of right lower limb; I87.2 Venous insufficiency (chronic) (peripheral); E78.5 Hyperlipidemia, unspecified; I10 Essential (primary) hypertension; E11.9 Type 2 diabetes mellitus without complications; I25.10 Atherosclerotic heart disease of native coronary artery without angina pectoris; Z79.82 Long term (current) use of aspirin; Z79.84 Long term (current) use of oral hypoglycemic drugs; Z79.899 Other long term (current) drug therapy | CPT/HCPCS: 99283 ==

== ENCOUNTER 2020-12-29 09:58 | Inpatient (IN) | payer MEDICARE, MEDICAID ==
[2020-12-29] MEDS ORDERED: Norepinephrine 8 MG/0.9% NS 250 ML ONE (10:21)
[2020-12-29] MEDS ORDERED: Piperacillin/Tazobactam 4.5 GM VIAL ONE (10:21)
[2020-12-29 10:29] LABS: Bilirubin Negative (Negative); Blood, Urine 3+ (Negative); Clarity Turbid (Clear); Glucose, Urine (Dipstick) Normal (Negative); Ketone, Urine Negative (Negative); Leukocyte 250 Leu/uL (Negative); Nitrite Negative (Negative); Protein, Urine (Dipstick) 30 mg/dL (Neg-Trace); RBC/HPF Greater than 50 HPF (0-3); Specific Gravity, Urine 1.013 (1.002-1.036); Squamous Epithelial None Seen HPF (0-3); Urobilinogen Normal mg/dL (Less than 2)
[2020-12-29 10:30] LABS: Bacteria/HPF 1+ HPF (None Seen)
[2020-12-29] MEDS ORDERED: Vancomycin 1.5 GRAM/300 ML BAG 1.5 GM in Premix Bag 1 BAG IVPB SCH (10:45)
[2020-12-29 10:51] LABS: Analyzer IN Cardio ER; Base Excess -13.6 mEq/L (-2.0 to +3.0); Calcium, Ionized (venous) 0.99 mmol/L (1.16-1.32); Chloride (VBG) 97 mmol/L (98-106); Hemoglobin (Hb) 9.6 g/dL (11.7-16.1); Potassium (VBG) 4.29 mmol/L (3.70-5.30); Sodium 116.7 mmol/L (133-146)
[2020-12-29 10:53] LABS: Actual Bicarbonate (HCO3v) 13 mEq/L (22-28)
[2020-12-29 10:57] LABS: Hemoglobin 11.1 g/dL (12.0-16.0); Mean Corpuscular HGB CONC 34.1 g/dL (32.0-36.0); Mean Corpuscular Hemoglobin 32.6 pg (27.0-31.0); Mean Corpuscular Volume 95.6 fL (78.0-98.0); Mean Platelet Volume 7.3 fL (7.4-10.4); Platelet Count 244 thou/uL (130-400); White Blood Cell (WBC) Count 17.3 thou/uL (4.8-10.8)
[2020-12-29] MEDS ORDERED: Ketamine 50 MG/ML (10ML VIAL) ONE (10:57)
[2020-12-29] MEDS ORDERED: Rocuronium Bromide 10 MG/ML (10ML VIAL) ONE (10:57)
[2020-12-29] MEDS ORDERED: EPINEPHrine 1 MG/10 ML Abboject SYRINGE ONE (10:57)
[2020-12-29 10:58] LABS: ALT (SGPT) 48 U/L (8-55); AST (SGOT) 91 U/L (5-34); Albumin 2.4 g/dL (3.4-4.8); Alkaline Phosphatase 122 U/L (40-110); Anion Gap 15 mmol/L (10-20); BUN (Urea Nitrogen) 41 mg/dL (9.8-20.1); Bilirubin, Total 1.4 mg/dL (0.2-1.2); Calc. Creatinine Clearance 0 mL/min (70-130); Calcium 7.3 mg/dL (7.8-10.44); Carbon Dioxide 13 mmol/L (23-31); Chloride 95 mmol/L (98-107); Globulin 2.4 g/dL (2.4-3.5); Glucose 97 mg/dL (83-110); Magnesium 1.4 mg/dL (1.6-2.6); Protein, Total 4.8 g/dL (5.8-8.1)
[2020-12-29 11:06] LABS: Sodium 118 mmol/L (136-145)
[2020-12-29 11:18] LABS: Lipase 48 U/L (8-78)
[2020-12-29 11:21] LABS: SARS-CoV-2 NAA Rapid Test Not Detected (NotDetected)
[2020-12-29 11:29] LABS: CKMB 52.5 ng/mL (0-6.6)
[2020-12-29] MEDS ORDERED: fentaNYL Citrate/PF 2,000 MCG in Sodium Chloride 0.9% 60 ML IV SCH (11:30)
[2020-12-29 11:50] LABS: Actual Bicarbonate (HCO3a) 11.8 mEq/L (22-28); Analyzer IN Cardio ER; Base Excess (BEa) -13.1 mEq/L (-2.0 to +3.0); Calcium, Ionized (arterial) 1.08 mmol/L (1.12-1.30); Carboxyhemoglobin (COHb) 0.3 gm% (0.0-3.0); Hemoglobin (Hb) 11.1 g/dL (12.0-16.0); O2 Tension (PaO2), arterial 109.7 mmHg (> 70.0); Potassium - ABG Lab 4.42 mmol/L (3.70-5.30); pH, Arterial 7.29 (7.35-7.45)
[2020-12-29 11:51] LABS: CO2 Tension 25.1 mmHg (35.0-45.0)
[2020-12-29 11:52] LABS: ALV-art Gradient 571.925 mmHg (0-20); Puncture Site RBA
[2020-12-29 11:52] LABS: Band 16 % (5-11); Burr Cells SLIGHT = 2-5 cells (100X) (0-1/hpf); Lymphocytes 7 % (21-51); MDiff Complete? YES; Neutrophil 76 % (42-75); Platelet Morphology Comment Appears Adequate; Polychromasia SLIGHT = 2-3 cells (100X) (0-2/hpf); Reactive Lymphocytes 1 % (0-10)
[2020-12-29] MEDS ORDERED: Senokot S 8.6-50 MG TAB PO PRN (12:10)
[2020-12-29] MEDS ORDERED: HYDROcodone/Acetaminophen 5/325 mg Tablet PO PRN (12:10)
[2020-12-29] MEDS ORDERED: Acetaminophen 325 MG TAB PO PRN (12:10)
[2020-12-29] MEDS ORDERED: Norepinephrine 8 MG/0.9% NS 250 ML IVPB PRN (12:12)
[2020-12-29] MEDS ORDERED: Milk Of Magnesia 30 ML UDCUP PO PRN (12:12)
[2020-12-29] MEDS ORDERED: Mag-Al 1200 mg/1200 mg/30 ML UDCUP PO PRN (12:12)
[2020-12-29] MEDS ORDERED: Insulin Regular 300 UNITS/3 ML VIAL SC PRN (12:12)
[2020-12-29] MEDS ORDERED: Ventilator Sedation Protocol 1 EACH FS SCH (12:15)
[2020-12-29] MEDS ORDERED: Sodium Chloride 0.9% 1,000 ML IV SCH (12:15)
[2020-12-29] MEDS ORDERED: Pharmacy to Dose VANC AND CEFEPIME IVPB PRN (12:21)
[2020-12-29] MEDS ORDERED: Fentanyl BOLUS 250 ML IVPB PRN (13:15)
[2020-12-29] MEDS ORDERED: Propofol BOLUS 1,000 MG/100 ML VIAL IV PRN (13:15)
[2020-12-29] MEDS ORDERED: Lorazepam 2 MG/ML VIAL SLOW IVP PRN ×3 (13:15→16:24)
[2020-12-29] MEDS ORDERED: DISCONTINUE PREVIOUS NARCOTIC PAIN MEDICATIONS AND BENZODIAZEPINES FS SCH (13:15)
[2020-12-29] MEDS ORDERED: Morphine 2 MG/ML VIAL SLOW IVP PRN (13:15)
[2020-12-29] MEDS ORDERED: Fentanyl CADD 100 ML IV SCH (13:15)
[2020-12-29] MEDS ORDERED: Propofol 1,000 MG/100 ML VIAL IV PRN (13:15)
[2020-12-29 13:55] LABS: Anion Gap 16 mmol/L (10-20); Carbon Dioxide 11 mmol/L (23-31); Chloride 97 mmol/L (98-107); Potassium 4.6 mmol/L (3.5-5.1)
[2020-12-29 13:58] LABS: Anion Gap 14 mmol/L (10-20); BUN (Urea Nitrogen) 40 mg/dL (9.8-20.1); Calc. Creatinine Clearance 0 mL/min (70-130); Carbon Dioxide 14 mmol/L (23-31); Chloride 97 mmol/L (98-107); Glucose 109 mg/dL (83-110); Potassium 4.5 mmol/L (3.5-5.1); Sodium 120 mmol/L (136-145)
[2020-12-29] MEDS ORDERED: Hydrocortisone Sod Succ/PF 100 mg/2 ml Vial IVP SCH (14:00)
[2020-12-29 14:04] LABS: Sodium 119 mmol/L (136-145)
[2020-12-29 14:09] LABS: Lactic Acid 1.2 mmol/L (0.5-2.2)
[2020-12-29 14:10] LABS: Troponin I 0.737 ng/mL (< 0.028)
[2020-12-29] MEDS ORDERED: Hydrocortisone Sod Succ/PF 100 mg/2 ml Vial ONE (14:20)
[2020-12-29] MEDS ORDERED: Morphine 4 MG/ML VIAL SLOW IVP PRN ×2 (14:32→16:24)
[2020-12-29] MEDS ORDERED: Morphine 4 MG/ML VIAL ONE (15:45)
[2020-12-29] MEDS ORDERED: Lorazepam 2 MG/ML VIAL ONE (15:45)
[2020-12-29] MEDS ORDERED: Albumin 25% 25 GM/100 ML BOT IVPB SCH (18:00)
[2020-12-29] MEDS ORDERED: Famotidine/PF 20 mg/2ml Vial SLOW IVP SCH (21:00)
[2020-12-29] MEDS ORDERED: Vancomycin 1 GM in Premix Bag 1 BAG IVPB SCH (21:00)
[2020-12-29] MEDS ORDERED: Cefepime 2 GM in Sodium Chloride 0.9% 100 ML IVPB SCH (21:00)
[2020-12-30] MEDS ORDERED: Enoxaparin Sodium 40 MG/0.4 ML SYRINGE SC SCH (09:00)
== END 2020-12-29 16:32 | disposition hospice, inpatient (51) | DRG 871 ==
LOC: ERS 09:58 → ERHOLD 12:01
PROVIDERS: ADMIT Family Medicine; ATTEND Family Medicine
PROC: 02HV33Z Insertion of Infusion Device into Superior Vena Cava, Percutaneous Approach (ICD-10-PCS; principal; 2020-12-29)
PROC: 0BH17EZ Insertion of Endotracheal Airway into Trachea, Via Natural or Artificial Opening (ICD-10-PCS; 2020-12-29)
PROC: 5A1935Z Respiratory Ventilation, Less than 24 Consecutive Hours (ICD-10-PCS; 2020-12-29)
PROC: 0D9670Z Drainage of Stomach with Drainage Device, Via Natural or Artificial Opening (ICD-10-PCS; 2020-12-29)
PROC: 3E033XZ Introduction of Vasopressor into Peripheral Vein, Percutaneous Approach (ICD-10-PCS; 2020-12-29)
DX: A41.9 Sepsis, unspecified organism (principal); R65.21 Severe sepsis with septic shock; J96.01 Acute respiratory failure with hypoxia; I50.43 Acute on chronic combined systolic (congestive) and diastolic (congestive) heart failure; J18.9 Pneumonia, unspecified organism; N39.0 Urinary tract infection, site not specified; E87.2 Acidosis; E87.1 Hypo-osmolality and hyponatremia; R18.8 Other ascites; Z66 Do not resuscitate; Z51.5 Encounter for palliative care; I25.10 Atherosclerotic heart disease of native coronary artery without angina pectoris; E78.5 Hyperlipidemia, unspecified; E11.9 Type 2 diabetes mellitus without complications; I10 Essential (primary) hypertension; G89.29 Other chronic pain; K74.60 Unspecified cirrhosis of liver; Z85.43 Personal history of malignant neoplasm of ovary; Z95.1 Presence of aortocoronary bypass graft; Z91.012 Allergy to eggs; Z79.84 Long term (current) use of oral hypoglycemic drugs; Z20.822 Contact with and (suspected) exposure to COVID-19; Z79.02 Long term (current) use of antithrombotics/antiplatelets; Z79.891 Long term (current) use of opiate analgesic; Z79.899 Other long term (current) drug therapy; Z78.1 Physical restraint status
CPT/HCPCS: 0240U; 31500; 36415; 36556; 36600; 51702; 70450; 71045; 72125; 80053; 81003; 81015; 82140; 82553; 82805; 83605; 83690; 83735; 83880; 83930; 84443; 84484; 85025; 87040; 93005; 94002; 96365; 96366; 96368; 96375; J0171; J1720; J2060; J2270; J2543; J3010; J3370; J3490; J7050

== ENCOUNTER 2020-12-29 16:08 | Inpatient (IN) | payer OTHER | END 2020-12-29 16:32 | disposition E | DRG 951 | LOC: 2NO 16:08 | PROVIDERS: ADMIT Family Medicine; ATTEND Family Medicine | DX: Z51.5 Encounter for palliative care (principal); A41.9 Sepsis, unspecified organism; R65.20 Severe sepsis without septic shock; Z66 Do not resuscitate; J96.01 Acute respiratory failure with hypoxia; I50.43 Acute on chronic combined systolic (congestive) and diastolic (congestive) heart failure; N39.0 Urinary tract infection, site not specified; E11.9 Type 2 diabetes mellitus without complications; K74.60 Unspecified cirrhosis of liver; I25.10 Atherosclerotic heart disease of native coronary artery without angina pectoris; Z95.1 Presence of aortocoronary bypass graft; Z85.43 Personal history of malignant neoplasm of ovary ==